=== PATIENT | male | born 1960 | race Caucasian/White ===

== ENCOUNTER 2017-08-22 01:24 | Emergency (ER) | payer BC ==
[~2017-08-22] VITALS: Ht 177.8 cm; Wt 86.0 kg
[~2017-08-22 01:24] MED LIST: RANI150T85 PO; multi vit
[2017-08-22 01:41] VITALS: Ht 177.8 cm; Wt 86.0 kg
[2017-08-22] MEDS ORDERED: ALUMINUM/MAGNESIUM SUSP 30 ML UDC PO STA (02:18)
[2017-08-22] MEDS ORDERED: LIDOCAINE HCL 2% VISC SOLN 20 ML UDC PO STA (02:18)
[2017-08-22] MEDS ORDERED: ONDANSETRON INJ 2 MG/ML 2 ML VIAL IV STA (02:18)
[2017-08-22 02:50] VITALS: O2SAT 95
[2017-08-22 03:01] LABS: BASO % 0.4 %; BASO ABS # 0.05 K/uL (0-0.2); EOS % 6.2 %; EOS ABS # 0.74 K/uL (0-0.5); HEMATOCRIT 40.8 % (42-52); IG# 0.03 K/uL (0.00-0.02); LYMPH % 27.4 %; LYMPH ABS # 3.28 K/uL (1.2-3.4); MEAN CELL VOLUME 90.9 fL (80-100); MEAN CORPUSCULAR HEMOGLOBIN 31.2 pg (25-34); MEAN CORPUSCULAR HGB CONC 34.3 g/dl (32-36); MEAN PLATELET VOLUME 9.1 fL (7.4-10.4); MONO % 14.4 %; MONO ABS # 1.72 K/uL (0.11-0.59); NEUT % 51.3 %; NEUT ABS # 6.13 K/uL (1.4-6.5); PLATELET COUNT 286 K/uL (130-400); RED CELL DISTRIBUTION WIDTH CV 13.3 % (11.5-14.5); RED CELL DISTRIBUTION WIDTH SD 43.7 fL (36.4-46.3); WHITE BLOOD COUNT 11.95 K/uL (4.8-10.8)
[2017-08-22 03:21] LABS: ALBUMIN 3.3 gm/dl (3.4-5.0); ALT/SGPT 28 U/L (12-78); AST/SGOT 22 U/L (15-37); BLOOD UREA NITROGEN 21 mg/dl (7-18); CALCIUM 8.3 mg/dl (8.5-10.1); CARBON DIOXIDE 24 mmol/L (21-32); CREATININE 0.86 mg/dl (0.60-1.40); GLUCOSE 96 mg/dl (70-99); LIPASE 396 U/L (73-393); POTASSIUM 3.7 mmol/L (3.5-5.1); SODIUM 137 mmol/L (136-145)
[2017-08-22 03:26] LABS: ALKALINE PHOSPHATASE 95 U/L (45-117); TOTAL PROTEIN 7.5 gm/dl (6.4-8.2)
[2017-08-22] MEDS ORDERED: OPTIRAY 320 IV PRN (04:15)
[2017-08-22] MEDS ORDERED: ONDANSETRON HOME PACK 4MG OD TAB PO ONE (05:15)
[2017-08-22] MEDS ORDERED: PERCOCET HOME PACK PO ONE (05:15)
--- NOTE | 2017-08-22 05:18 | EMERGENCY ROOM VISIT NOTE ---
History First contact with patient: 01:52 Chief Complaint: ABDOMINAL PAIN Stated Complaint: UPR ABD PAIN W RADIATION INTO BOTH FLANKS Nursing Triage Summary: see triage note History of Present Illness The patient is a 57 year old male who presents to the Emergency Room with complaints of epigastric discomfort for the past day that radiates around to his back described as discomfort, 5 out of 10. Nothing makes it better or worse. Patient denies chest pain, dyspnea, fever, chills, nausea, vomiting, diarrhea, testicular pain, penile pain, urinary symptoms. Patient states several years ago he had a history of pancreatitis and symptoms feel somewhat similar. No recent alcohol intake. Review of Systems An 10 system review of systems was completed with positives and pertinent negatives listed in the HPI. Past Medical/Surgical History Pancreatitis Social History Smoking Status: Never Smoker Smokeless Tobacco Use: No Drug Use: none Marital Status: Housing Status: lives with family Occupation Status: employed Current/Historical Medications Scheduled Ranitidine (Zantac), 150 MG PO BID Miscellaneous Medications [multi vit] Physical Exam Vital Signs Date Time Temp Pulse Resp B/P (MAP) Pulse Ox O2 Delivery O2 Flow Rate FiO2 08/22/17 03:48 36.5 69 20 125/78 Room Air 08/22/17 02:50 95 Room Air 08/22/17 02:50 95 Room Air 08/22/17 02:45 71 08/22/17 02:45 71 08/22/17 01:41 36.5 80 20 115/73 95 Room Air Physical Exam VITALS: Vitals are noted on the nurse's note and reviewed by myself. Vital signs stable. GENERAL: Pleasant male, in no acute distress, nondiaphoretic, well-developed well-nourished. SKIN: The skin was without rashes, erythema, edema, or bruising. There is no tenting of the skin. Capillary reflex less than 2 seconds. HEAD: Normocephalic atraumatic. EARS: External auditory canals clear, tympanic membranes pearly elena without erythema or effusion bilaterally. EYES: Pupils equal round and reactive to light and accommodation. Conjunctivae without injection, sclerae without icterus. Extraocular movements intact. NOSE: Patent, turbinates without inflammation or discharge. MOUTH: Mucous membranes moist. Pharynx without erythema or exudate. Uvula midline. Airway patent. Tongue does not deviate. NECK: Supple without nuchal rigidity. No lymphadenopathy. No thyromegaly. Cervical spine is nontender. No JVD. HEART: Regular rate and rhythm without murmurs gallops or rubs. LUNGS: Clear to auscultation bilaterally without wheezes, rales or rhonchi. No retractions or accessory muscle use. ABDOMEN: Positive bowel sounds x 4. Normal tympanic percussion. Soft, minimally tender epigastric region, without masses or organomegaly. Umana sign negative. No guarding or rebound tenderness. No CVA tenderness MUSCULOSKELETAL: No muscle atrophy, erythema, or edema noted. NEURO: Patient was alert and oriented to person place and time. Normal sensation to light and sharp touch. No focal neurological deficits. Medical Decision & Procedures Laboratory Results 08/22/17 02:50 Red Blood Count 4.49, Mean Corpuscular Volume 90.9, Mean Corpuscular Hemoglobin 31.2, Mean Corpuscular Hemoglobin Concent 34.3, Mean Platelet Volume 9.1, Neutrophils (%) (Auto) 51.3, Lymphocytes (%) (Auto) 27.4, Monocytes (%) (Auto) 14.4, Eosinophils (%) (Auto) 6.2, Basophils (%) (Auto) 0.4, Neutrophils # (Auto ) 6.13, Lymphocytes # (Auto) 3.28, Monocytes # (Auto) 1.72, Eosinophils # (Auto ) 0.74, Basophils # (Auto) 0.05 08/22/17 02:50 Test 08/22/17 02:49 08/22/17 02:50 Bedside Troponin I < 0.030 ng/ml (0-0.045) White Blood Count 11.95 K/uL (4.8-10.8) Red Blood Count 4.49 M/uL (4.7-6.1) Hemoglobin 14.0 g/dL (14.0-18.0) Hematocrit 40.8 % (42-52) Mean Corpuscular Volume 90.9 fL (80-100) Mean Corpuscular Hemoglobin 31.2 pg (25-34) Mean Corpuscular Hemoglobin Concent 34.3 g/dl (32-36) Platelet Count 286 K/uL (130-400) Mean Platelet Volume 9.1 fL (7.4-10.4) Neutrophils (%) (Auto) 51.3 % Lymphocytes (%) (Auto) 27.4 % Monocytes (%) (Auto) 14.4 % Eosinophils (%) (Auto) 6.2 % Basophils (%) (Auto) 0.4 % Neutrophils # (Auto) 6.13 K/uL (1.4-6.5) Lymphocytes # (Auto) 3.28 K/uL (1.2-3.4) Monocytes # (Auto) 1.72 K/uL (0.11-0.59) Eosinophils # (Auto) 0.74 K/uL (0-0.5) Basophils # (Auto) 0.05 K/uL (0-0.2) RDW Standard Deviation 43.7 fL (36.4-46.3) RDW Coefficient of Variation 13.3 % (11.5-14.5) Immature Granulocyte % (Auto) 0.3 % Immature Granulocyte # (Auto) 0.03 K/uL (0.00-0.02) Anion Gap 8.0 mmol/L (3-11) Est Creatinine Clear Calc Drug Dose 100.2 ml/min Estimated GFR () 113.1 Estimated GFR (Non- 97.6 BUN/Creatinine Ratio 24.2 (10-20) Calcium Level 8.3 mg/dl (8.5-10.1) Total Bilirubin 0.3 mg/dl (0.2-1) Direct Bilirubin < 0.1 mg/dl (0-0.2) Aspartate Amino Transf (AST/SGOT) 22 U/L (15-37) Alanine Aminotransferase (ALT/SGPT) 28 U/L (12-78) Alkaline Phosphatase 95 U/L (45-117) Troponin I < 0.015 ng/ml (0-0.045) Total Protein 7.5 gm/dl (6.4-8.2) Albumin 3.3 gm/dl (3.4-5.0) Lipase 396 U/L (73-393) Medications Administered Medications (Trade) Dose Ordered Sig/Luz Elena Route Start Time Stop Time Status Last Admin Dose Admin Lidocaine HCl (Viscous Lidocaine 2% Soln) 10 ml NOW STAT PO 08/22/17 02:18 08/22/17 02:19 DC 08/22/17 02:52 10 ML Al Hydroxide/Mg Hydroxide (Maalox Susp) 30 ml NOW STAT PO 08/22/17 02:18 08/22/17 02:19 DC 08/22/17 02:52 30 ML Ondansetron HCl (Zofran Inj) 4 mg NOW STAT IV 08/22/17 02:18 08/22/17 02:19 DC 08/22/17 02:52 4 MG ED Course Prior records/ancillary studies reviewed. Triage Nursing notes reviewed. Additional history obtained from family The patient's history was concerning for abdominal pain. Differential diagnosis: Etiologies such as appendicitis, diverticulitis, PUD, biliary pathology, UTI, pancreatitis, obstruction, mesenteric ischemia, aortic pathology, infections, inflammatory bowel disease, renal colic, as well as others were entertained. Physical examination findings: As above. ER treatment provided: GI cocktail On reassessment the patient felt better. Diagnostics interpreted by me: ECG: Normal sinus, normal intervals, no acute ST-T wave changes. Impression normal sinus rhythm interpreted by myself The labs revealed mild leukocytosis. Slightly elevated lipase. Negative troponin Imaging studies: Chest x-ray with no acute consolidation, pneumothorax free of my interpretation Ultrasound negative for cholecystitis CT was concerning for pancreatitis per radiology Exam and history seem consistent with pancreatitis. Patient is requesting to leave. He was in mild discomfort. He required no pain meds. He was not vomiting patient was offered admission and declined.. He states he has gone home before with pancreatitis. He was advised to clear liquid diet until the pain has resolved to follow-up with his GI doctor in a day or 2 here in the ER sooner for abdominal pain, fevers, vomiting, worsening signs or symptoms or as needed. Patient was neurovascularly and neurologically intact. He did not have acute abdomen on exam. He is well-appearing. He was afebrile nontoxic. By the evaluation outlined above emergent etiologies such as appendicitis, diverticulitis, PUD, biliary pathology, UTI, pancreatitis, obstruction, mesenteric ischemia, aortic pathology, inflammatory bowel disease, renal colic , as well as others were deemed relatively unlikely. The pt informed about the findings as listed above. All questions were answered and pleased with the treatment. Return instructions were outlined and the patient was discharged in stable condition. Outpatient prescription management: Percocet, Zofran Referral: The patient was referred back to their primary care physician/ GI for follow- up in 24 hours for a recheck of the current condition. Case reviewed with my attending The chart was completed utilizing Dragon Speech voice recognition software. Grammatical errors, random word insertions, pronoun errors, and incomplete sentences are an occassional consequence of this system due to software limitations, ambient noise, and hardware issues. Any formal questions or concerns about the content, text, or information contained within the body of this dictation should be directly addressed to the physician respiratory therapy assistant for clarification. Medical Decision As above [place] Drug Monitoring Program Search Results: patient reviewed within database, no issues identified Medication Reconcilliation Current Medication List: was personally reviewed by me Blood Pressure Screening Patient's blood pressure: Normal blood pressure Impression Primary Impression: Pancreatitis Departure Information Dispostion Home / Self-Care Condition GOOD Referrals Aram Muller M.D. (PCP) Patient Instructions My [facility] Additional Instructions DO NOT drive, drink alcohol, operate machinery, or perform dangerous activities today. You were given medications in the ER that can affect your ability to safely function or operate a vehicle. Oxycodone/Acetaminophen (Percocet) 5/325mg: Take 1-2 pills every four hours for breakthrough pain. Avoid alcohol, operating machinery or dangerous equipment, working on ladders or roofs, DRIVING, or situations where being under the influence may be dangerous. It is recommended to use an [id number] stool softener such as Colace, 100mg twice daily while taking this medication to avoid constipation. Ibuprofen(Motrin, Advil) may be used for fever or pain. Use 600mg every six hours as needed. Take with food. Avoid using more than 2400mg in a 24 hour period. Do not use 2400mg per day for more than three consecutive days without physician direction. Prolonged inappropriate use can lead to stomach upset or ulcers. Zofran 4mg: Take one every six hours as needed for nausea. Avoid alcohol, operating machinery or dangerous equipment, working on ladders or roofs, DRIVING , or situations where being under the influence may be dangerous. Rest and drink plenty of fluids as tolerated. Slow sips of water or sports drinks are recommended instead of large amounts all at once. Continue current medications. Clear liquid diet until her pain has resolved. Return to the ER immediately for worsening or persistent abdominal pain, vomiting, fevers, chest pains, difficulty breathing, black or bloody stools, worsening of your condition, or as needed. Follow up with your primary physician/ GI docor in 24 hours for a recheck of your current condition. Problem Qualifiers Primary Impression: Pancreatitis Chronicity: acute Pancreatitis type: unspecified pancreatitis type Acute pancreatitis complication: unspecified Qualified Codes: K85.90 - Acute pancreatitis without necrosis or infection, unspecified
[2017-08-22] MEDS ORDERED: OXYC-57 PO (05:21)
[2017-08-22] MEDS ORDERED: ONDA4TAB10 SL (05:21)
[2017-08-22 05:33] VITALS: BP 128/72; PULSE 65; TEMP 36.6; O2SAT 98
--- NOTE | 2017-08-22 07:23 | DIAGNOSTIC IMAGING REPORT ---
ABDOMINAL ULTRASOUND, RIGHT UPPER QUADRANT HISTORY: epigastric pain. COMPARISON: Abdominal ultrasound 04/12/2011. FINDINGS: Pancreas: Obscured by overlying bowel gas. Liver: Unremarkable. Gallbladder: No gallstones. No gallbladder wall thickening. Sludge versus artifact within the gallbladder. CBD: 4 mm. Right kidney: No hydronephrosis. IMPRESSION: 1. Sludge versus artifact within the gallbladder. 2. No gallbladder wall thickening. No gallstones. 3. The pancreas was obscured by overlying bowel gas. Electronically signed by: Hudson Mendez M.D. 08/22/2017 7:21 AM Dictated Date/Time: 08/22/2017 7:20 AM
--- NOTE | 2017-08-22 07:25 | DIAGNOSTIC IMAGING REPORT ---
ABDOMEN AND PELVIS CT WITH IV CONTRAST CT DOSE: 558.80 mGy.cm HISTORY: Acute generalized abdominal pain with concern for acute pancreatitis abd pain, ? pancreatitis TECHNIQUE: Multiaxial CT images of the abdomen and pelvis were performed following the use of intravenous contrast. A dose lowering technique was utilized adhering to the principles of ALARA. COMPARISON STUDY: CT abdomen and pelvis 04/12/2011 FINDINGS: Minimal dependent subsegmental bibasilar atelectasis. No pneumatosis or pneumoperitoneum. Imaged inferior cardiac chambers are unremarkable. The liver, spleen, gallbladder, and adrenal glands are within normal limits. There is mild interstitial and peripancreatic edema involving the pancreatic head and uncinate process. No pancreatic ductal dilation or drainable fluid collections. There is mild generalized pancreatic atrophy. No intrahepatic biliary ductal dilation. Nonobstructing 5 mm calculus of the interpolar left kidney with additional 2 mm nonobstructing calculus of the inferior pole left kidney. 4 mm low attenuating lesion of the superior pole right kidney suggests renal cyst. No ureteral calculi or hydronephrosis. Urinary bladder is partially decompressed. Calcifications are seen within the central prostate. No aortic aneurysm or bulky adenopathy. No bowel obstruction or focal bowel wall thickening. Postoperative changes from prior ventral abdominal wall herniorrhaphy. Soft tissues are within normal limits. The bones appear intact. 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 IMPRESSION: 1. Mild interstitial and peripancreatic edema about the pancreatic head and uncinate process suggests mild acute pancreatitis. No evidence of pancreatic necrosis or drainable fluid collection. Correlate with lipase level. 2. No biliary ductal dilation. 3. No bowel obstruction or focal bowel wall thickening. 4. Nonobstructing left nephrolithiasis. Electronically signed by: Demetrius Ford M.D. 08/22/2017 7:23 AM Dictated Date/Time: 08/22/2017 7:17 AM
--- NOTE | 2017-08-22 07:36 | DIAGNOSTIC IMAGING REPORT ---
CHEST ONE VIEW PORTABLE HISTORY: Atypical CHEST PAIN COMPARISON: Chest 04/12/2011. FINDINGS: The lungs are clear. Cardiac silhouette is normal in size. No pleural effusions. No pneumothorax. IMPRESSION: No acute process. Electronically signed by: Hudson Mendez M.D. 08/22/2017 7:35 AM Dictated Date/Time: 08/22/2017 7:33 AM
== END 2017-08-22 05:35 | disposition home or self-care (01) ==
LOC: C.EDB 01:26
DX: K85.90 Acute pancreatitis without necrosis or infection, unspecified (principal)

== ENCOUNTER 2017-09-29 13:33 | Inpatient (IN) | payer BC ==
[~2017-09-29] VITALS: Ht 176.5 cm; Wt 90.8 kg
[~2017-09-29 13:33] MED LIST changes: +ONDA4TAB10 SL; +OXYC-57 PO
[2017-09-29] MEDS ORDERED: ONDANSETRON INJ 2 MG/ML 2 ML VIAL IV STA (14:13)
[2017-09-29] MEDS ORDERED: SODIUM CHLORIDE 0.9% 1000ML 1,000 ML IV STA (14:13)
[2017-09-29] MEDS ORDERED: KETOROLAC TROMETHAMINE 30 MG/ML VIAL IV STA (14:16)
[2017-09-29 14:22] LABS: BASO % 0.1 %; BASO ABS # 0.02 K/uL (0-0.2); EOS % 0.1 %; EOS ABS # 0.02 K/uL (0-0.5); HEMATOCRIT 42.5 % (42-52); HEMOGLOBIN 14.5 g/dL (14.0-18.0); IG# 0.06 K/uL (0.00-0.02); LYMPH % 7.1 %; LYMPH ABS # 1.32 K/uL (1.2-3.4); MEAN CELL VOLUME 91.6 fL (80-100); MEAN CORPUSCULAR HEMOGLOBIN 31.3 pg (25-34); MEAN CORPUSCULAR HGB CONC 34.1 g/dl (32-36); MEAN PLATELET VOLUME 9.3 fL (7.4-10.4); MONO % 14.6 %; MONO ABS # 2.72 K/uL (0.11-0.59); NEUT % 77.8 %; NEUT ABS # 14.45 K/uL (1.4-6.5); PLATELET COUNT 290 K/uL (130-400); RED CELL DISTRIBUTION WIDTH CV 13.3 % (11.5-14.5); RED CELL DISTRIBUTION WIDTH SD 44.3 fL (36.4-46.3); WHITE BLOOD COUNT 18.59 K/uL (4.8-10.8)
[2017-09-29 14:31] LABS: ALBUMIN 3.9 gm/dl (3.4-5.0); CALCIUM 9.9 mg/dl (8.5-10.1); CREATININE 0.89 mg/dl (0.60-1.40); POTASSIUM 3.8 mmol/L (3.5-5.1)
[2017-09-29 14:33] LABS: TOTAL PROTEIN 8.5 gm/dl (6.4-8.2)
--- NOTE | 2017-09-29 15:36 | DIAGNOSTIC IMAGING REPORT ---
ULTRASOUND RIGHT UPPER QUADRANT ABDOMEN CLINICAL HISTORY: Upper abdominal pain. COMPARISON STUDY: Abdominal CT dated 08/22/2017. TECHNIQUE: Real-time, grayscale, and color flow sonography of the right upper quadrant of the abdomen was performed. Images are reviewed in the transverse and longitudinal planes. FINDINGS: Liver: The liver is normal in size and echotexture. There is no intrahepatic biliary ductal dilatation. The main portal vein is patent. Gallbladder: The gallbladder is normal in appearance. No gallstones are identified. There is no gallbladder wall thickening or pericholecystic fluid. A sonographic Umana's sign is reportedly absent. The common bile duct measures up to 0.2 cm in diameter. Pancreas: Not well visualized due to overlying bowel gas. Right kidney: Survey images of the right kidney demonstrate normal size and echotexture. There is no hydronephrosis. Ascites: None. IMPRESSION: 1. No acute sonographic abnormality is identified in the right upper quadrant. No gallstones are seen. 2. The pancreas was not visualized due to overlying bowel gas. Electronically signed by: Marvel Rizzo M.D. 09/29/2017 3:34 PM Dictated Date/Time: 09/29/2017 3:33 PM
[2017-09-29] MEDS ORDERED: MoRPHine SULFATE 10 MG/ML CARP/VIAL IV STA (16:09)
[2017-09-29] MEDS ORDERED: OPTIRAY 320 IV PRN (16:45)
[2017-09-29] MEDS ORDERED: FOLI1TAB8 PO (16:51)
[2017-09-29] MEDS ORDERED: MAGN400T6 PO (16:51)
[2017-09-29] MEDS ORDERED: LEVO100T PO (16:51)
[2017-09-29] MEDS ORDERED: MULT-845 PO (16:51)
[2017-09-29] MEDS ORDERED: TADA5TAB11 PO (16:51)
[2017-09-29] MEDS ORDERED: ERGO500037 PO (16:51)
[2017-09-29] MEDS ORDERED: CALC600T37 PO (16:51)
--- NOTE | 2017-09-29 17:04 | DIAGNOSTIC IMAGING REPORT ---
CT SCAN OF THE ABDOMEN AND PELVIS WITH IV CONTRAST CLINICAL HISTORY: Generalized abdominal pain. Elevated lipase. COMPARISON STUDY: Abdominal CT dated 08/22/2017. TECHNIQUE: Following the IV administration of 95 cc of Optiray 320, CT scan of the abdomen and pelvis is performed from the lung bases to the proximal femora. Images are reviewed in the axial, sagittal, and coronal planes. IV contrast was administered without complication. A dose lowering technique was utilized adhering to the principles of ALARA. CT DOSE: 546.73 mGy.cm FINDINGS: Lung bases: The heart is normal in size and without pericardial effusion. There are coronary artery calcifications. A tiny hiatal hernia is identified. The lung bases are clear. Liver: The contrast-enhanced liver is normal in size, contour, and attenuation. There is no intrahepatic biliary ductal dilatation. The hepatic veins and portal veins are patent. Gallbladder: Unremarkable. Spleen: Normal in size and attenuation. Pancreas: There is mild to moderate glandular atrophy of the pancreas. There is peripancreatic inflammatory stranding and trace fluid, greatest in the pancreatic head. The appearance is consistent with acute pancreatitis. The pancreatic parenchyma enhances. No organized peripancreatic fluid collection is identified. The splenic vein is patent. Adrenal glands: Unremarkable. Kidneys: The contrast enhanced kidneys are normal in size and without hydronephrosis. The kidneys enhance symmetrically. There is a 4 mm nonobstructing left renal calculus. Abdominal vasculature: The abdominal aorta is normal in course and caliber noting scattered foci of atherosclerotic calcification. Bowel: The small bowel and colon are normal in course and caliber. The appendix is normal as visualized. Peritoneum: There is no intraperitoneal free air or abdominal ascites. Lymphadenopathy: None. Pelvic viscera: The bladder, prostate, and seminal vesicles are normal as visualized. There is evidence of previous bilateral inguinal herniorrhaphy. Skeletal structures: No lytic or blastic lesions are seen. IMPRESSION: 1. Findings are consistent with acute pancreatitis. 2. There is no evidence of pancreatic necrosis or pseudocyst formation. 3. Nonobstructing left renal calculus. 4. Additional findings as above. Electronically signed by: Marvel Rizzo M.D. 09/29/2017 5:03 PM Dictated Date/Time: 09/29/2017 4:57 PM
[2017-09-29] MEDS ORDERED: ONDANSETRON INJ 2 MG/ML 2 ML VIAL IV PRN ×2 (17:30→18:00)
[2017-09-29] MEDS ORDERED: CALC-388 PO (17:38)
[2017-09-29] MEDS ORDERED: CYAN6000 SL (17:38)
--- NOTE | 2017-09-29 17:43 | EMERGENCY ROOM VISIT NOTE ---
History First contact with patient: 13:44 Chief Complaint: ABDOMINAL PAIN Stated Complaint: SIGNS,SYMPTOMS ACUTE PANCREATITIS Nursing Triage Summary: c/o abdominal cramping radiating into back since friday night. vomited twice this am. denies diarrhea, consitpation. abd soft, tender, distended. History of Present Illness The patient is a 57 year old male who presents to the Emergency Room with complaints of abdominal pain. The patient reports that he has abdominal pain consistent with pancreatitis. He has had pain for the past 2 days, worsening significantly today. He states it is a burning pain diffusely across his abdomen and rates the discomfort a 10/10. The pain radiates into his back. The patient was seen here 1 month ago for acute pancreatitis and states this pain feels the same. He has been seeing GI as an outpatient and states he is scheduled for an endoscopy in 1 week. He does not drink alcohol. He had one prior episode of pancreatitis 6 years ago. He denies any other medical problems. He reports associated nausea and vomiting. He denies fevers, urinary symptoms, chest pain, shortness of breath or changes in bowel movements. Review of Systems A complete 10 point review of systems was reviewed with the patient with pertinent positives and negatives as per history of present illness. All else were negative. Past Medical/Surgical History Medical Problems: (1) Celiac disease (2) Hypothyroidism (3) Impotence of organic origin (4) Osteoporosis Social History Smoking Status: Never Smoker Drug Use: none Marital Status: Housing Status: lives with family Occupation Status: employed Current/Historical Medications Scheduled Calcium Carbonate-Vitamin D (Calcium + D3 600-200 mg-Unit), 2 TABS PO DAILY Cyanocobalamin (Vitamin B-12), 1 TAB SL DAILY Ergocalciferol (Vitamin D 95118 Unit), 50,000 UNIT PO WK Folic Acid (Folvite), 1 MG PO DAILY Levothyroxine Sodium (Synthroid), 100 MCG PO DAILY Multiple Vitamins W/ Minerals (Centrum Silver Adult 50+), 1 TAB PO DAILY Tadalafil (Cialis), 5 MG PO DAILY Physical Exam Vital Signs Date Time Temp Pulse Resp B/P (MAP) Pulse Ox O2 Delivery O2 Flow Rate FiO2 09/29/17 16:36 84 15 124/87 09/29/17 16:06 91 17 124/87 09/29/17 14:33 93 16 09/29/17 14:03 98 21 09/29/17 13:58 101 09/29/17 13:55 142/100 09/29/17 13:38 37.0 100 18 124/91 98 Room Air Physical Exam VITALS: Vitals are noted on the nurse's note and reviewed by myself. Vital signs stable. GENERAL: This is a 57-year-old male, in no acute distress, nondiaphoretic, well- developed well-nourished. SKIN: The skin was without rashes. EARS: External auditory canals clear, tympanic membranes pearly elena without erythema or effusion bilaterally. EYES: Pupils equal round and reactive to light and accommodation. MOUTH: Mucous membranes moist. Tonsils are not enlarged. Pharynx without erythema or exudate. HEART: Regular rate and rhythm without murmurs gallops or rubs. LUNGS: Clear to auscultation bilaterally without wheezes, rales or rhonchi. ABDOMEN: Positive bowel sounds x 4. Soft, nondistended with diffuse mild abdominal tenderness, most notably across the upper abdomen. NEURO: Patient was alert and oriented to person place and time. Medical Decision & Procedures ER Provider Diagnostic Interpretation: ULTRASOUND RIGHT UPPER QUADRANT ABDOMEN FINDINGS: Liver: The liver is normal in size and echotexture. There is no intrahepatic biliary ductal dilatation. The main portal vein is patent. Gallbladder: The gallbladder is normal in appearance. No gallstones are identified. There is no gallbladder wall thickening or pericholecystic fluid. A sonographic Umana's sign is reportedly absent. The common bile duct measures up to 0.2 cm in diameter. Pancreas: Not well visualized due to overlying bowel gas. Right kidney: Survey images of the right kidney demonstrate normal size and echotexture. There is no hydronephrosis. Ascites: None. IMPRESSION: 1. No acute sonographic abnormality is identified in the right upper quadrant. No gallstones are seen. 2. The pancreas was not visualized due to overlying bowel gas. CT SCAN OF THE ABDOMEN AND PELVIS WITH IV CONTRAST FINDINGS: Lung bases: The heart is normal in size and without pericardial effusion. There are coronary artery calcifications. A tiny hiatal hernia is identified. The lung bases are clear. Liver: The contrast-enhanced liver is normal in size, contour, and attenuation. There is no intrahepatic biliary ductal dilatation. The hepatic veins and portal veins are patent. Gallbladder: Unremarkable. Spleen: Normal in size and attenuation. Pancreas: There is mild to moderate glandular atrophy of the pancreas. There is peripancreatic inflammatory stranding and trace fluid, greatest in the pancreatic head. The appearance is consistent with acute pancreatitis. The pancreatic parenchyma enhances. No organized peripancreatic fluid collection is identified. The splenic vein is patent. Adrenal glands: Unremarkable. Kidneys: The contrast enhanced kidneys are normal in size and without hydronephrosis. The kidneys enhance symmetrically. There is a 4 mm nonobstructing left renal calculus. Abdominal vasculature: The abdominal aorta is normal in course and caliber noting scattered foci of atherosclerotic calcification. Bowel: The small bowel and colon are normal in course and caliber. The appendix is normal as visualized. Peritoneum: There is no intraperitoneal free air or abdominal ascites. Lymphadenopathy: None. Pelvic viscera: The bladder, prostate, and seminal vesicles are normal as visualized. There is evidence of previous bilateral inguinal herniorrhaphy. Skeletal structures: No lytic or blastic lesions are seen. IMPRESSION: 1. Findings are consistent with acute pancreatitis. 2. There is no evidence of pancreatic necrosis or pseudocyst formation. 3. Nonobstructing left renal calculus. 4. Additional findings as above. Laboratory Results 09/29/17 13:51 Red Blood Count 4.64, Mean Corpuscular Volume 91.6, Mean Corpuscular Hemoglobin 31.3, Mean Corpuscular Hemoglobin Concent 34.1, Mean Platelet Volume 9.3, Neutrophils (%) (Auto) 77.8, Lymphocytes (%) (Auto) 7.1, Monocytes (%) (Auto) 14.6, Eosinophils (%) (Auto) 0.1, Basophils (%) (Auto) 0.1, Neutrophils # (Auto ) 14.45, Lymphocytes # (Auto) 1.32, Monocytes # (Auto) 2.72, Eosinophils # (Auto ) 0.02, Basophils # (Auto) 0.02 09/29/17 13:51 Test 09/29/17 00:00 09/29/17 13:51 Urine Color YELLOW Urine Appearance TURBID (CLEAR) Urine pH 8.5 (4.5-7.5) Urine Specific [place] 1.022 (1.000-1.030) Urine Protein NEG (NEG) Urine Glucose (UA) NEG (NEG) Urine Ketones NEG (NEG) Urine Occult Blood NEG (NEG) Urine Nitrite NEG (NEG) Urine Bilirubin NEG (NEG) Urine Urobilinogen NEG (NEG) Urine Leukocyte Esterase NEG (NEG) Urine WBC (Auto) 1-5 /hpf (0-5) Urine RBC (Auto) 5-10 /hpf (0-4) Urine Hyaline Casts (Auto) 1-5 /lpf (0-5) Urine Epithelial Cells (Auto) 10-20 /lpf (0-5) Urine Bacteria (Auto) NEG (NEG) White Blood Count 18.59 K/uL (4.8-10.8) Red Blood Count 4.64 M/uL (4.7-6.1) Hemoglobin 14.5 g/dL (14.0-18.0) Hematocrit 42.5 % (42-52) Mean Corpuscular Volume 91.6 fL (80-100) Mean Corpuscular Hemoglobin 31.3 pg (25-34) Mean Corpuscular Hemoglobin Concent 34.1 g/dl (32-36) Platelet Count 290 K/uL (130-400) Mean Platelet Volume 9.3 fL (7.4-10.4) Neutrophils (%) (Auto) 77.8 % Lymphocytes (%) (Auto) 7.1 % Monocytes (%) (Auto) 14.6 % Eosinophils (%) (Auto) 0.1 % Basophils (%) (Auto) 0.1 % Neutrophils # (Auto) 14.45 K/uL (1.4-6.5) Lymphocytes # (Auto) 1.32 K/uL (1.2-3.4) Monocytes # (Auto) 2.72 K/uL (0.11-0.59) Eosinophils # (Auto) 0.02 K/uL (0-0.5) Basophils # (Auto) 0.02 K/uL (0-0.2) RDW Standard Deviation 44.3 fL (36.4-46.3) RDW Coefficient of Variation 13.3 % (11.5-14.5) Immature Granulocyte % (Auto) 0.3 % Immature Granulocyte # (Auto) 0.06 K/uL (0.00-0.02) Anion Gap 7.0 mmol/L (3-11) Est Creatinine Clear Calc Drug Dose 104.5 ml/min Estimated GFR () 111.6 Estimated GFR (Non- 96.3 BUN/Creatinine Ratio 15.4 (10-20) Calcium Level 9.9 mg/dl (8.5-10.1) Total Bilirubin 0.8 mg/dl (0.2-1) Aspartate Amino Transf (AST/SGOT) 22 U/L (15-37) Alanine Aminotransferase (ALT/SGPT) 29 U/L (12-78) Alkaline Phosphatase 84 U/L (45-117) Total Protein 8.5 gm/dl (6.4-8.2) Albumin 3.9 gm/dl (3.4-5.0) Globulin 4.6 gm/dl (2.5-4.0) Albumin/Globulin Ratio 0.8 (0.9-2) Lipase 784 U/L (73-393) Medications Administered Medications (Trade) Dose Ordered Sig/Luz Elena Route Start Time Stop Time Status Last Admin Dose Admin Sodium Chloride 1,000 ml @ 999 mls/hr Q1H1M STAT IV 09/29/17 14:13 09/29/17 15:13 DC 09/29/17 14:23 999 MLS/HR Ondansetron HCl (Zofran Inj) 4 mg NOW STAT IV 09/29/17 14:13 09/29/17 14:15 DC 09/29/17 14:23 4 MG Ketorolac Tromethamine (Toradol Inj) 30 mg NOW STAT IV 09/29/17 14:16 09/29/17 14:17 DC 09/29/17 14:23 30 MG Morphine Sulfate (MoRPHine SULFATE INJ) 6 mg NOW STAT IV 09/29/17 16:09 09/29/17 16:11 DC 09/29/17 16:16 6 MG ED Course The patient was evaluated as above. Labs were drawn and IV access was obtained. Patient was medicated with 1 L normal saline solution, 4 mg Zofran and and 30 mg Toradol IV. Right upper quadrant ultrasound was performed and read by radiology as above. Case was discussed with ANNA Metcalf with gastroenterology. She did recommend admission given the increase in leukocytosis and increasing lipase. She also recommended CT scan to rule out pancreatic abscess. Patient was reevaluated at this time and is agreeable to admission. He did request something additional for pain and was given 6 mg morphine IV. Case was discussed with the [facility] hospitalist, Adelia Snyder. They agreed to evaluate the patient for admission. Medical Decision Differential diagnosis includes pancreatitis, cholecystitis, necrotic pancreatitis, pancreatic abscess, among others. The patient is a 57-year-old male who presents today complaining of abdominal pain consistent with previous pancreatitis. Labs revealed significant leukocytosis of 18.59. Lipase found to be elevated at 784. Patient was treated with Toradol and morphine with improvement of his pain. An ultrasound did not show any acute findings. I discussed the case with the on-call [facility] DIRECTOR of gastroenterology, who recommended admission and repeat CT scan to rule out a pancreatic abscess. CT was ordered and did show evidence of acute pancreatitis. Patient was admitted to the [facility] service for further evaluation and care. Medication Reconcilliation Current Medication List: was personally reviewed by me Blood Pressure Screening Patient's blood pressure: Normal blood pressure Impression Primary Impression: Acute pancreatitis Departure Information Referrals Aram Muller M.D. (PCP) Patient Instructions My [facility] Problem Qualifiers Primary Impression: Acute pancreatitis Pancreatitis type: unspecified pancreatitis type Acute pancreatitis complication: no infection or necrosis Qualified Codes: K85.90 - Acute pancreatitis without necrosis or infection, unspecified
--- NOTE | 2017-09-29 17:56 | History and Physical ---
History & Physical Date & Time of Service: Sep 29, 2017 at 17:39 Chief Complaint: Signs,Symptoms Acute Pancreatitis Primary Care Physician: Aram Muller M.D. History of Present Illness Source: patient, clinic records, hospital records Patient is a 57-year-old male with a PMH of celiac disease, hypothyroidism and h /o pancreatitis who presents with diffuse abdominal pain 3 days. Patient experienced first bout of pancreatitis 6 years ago and again last month. Followed up in GI clinic a few weeks ago and has an EGD and EUS scheduled for next week. Etiology of pancreatitis is unclear however biliary sludge was seen in the gallbladder on previous imaging. Was offered referral to surgery to consider cholecystectomy but declined. This Friday, patient went out for dinner and had smoked chicken thighs. Started to experience central abdominal pain afterwards. Pain persisted yesterday but patient was able to tolerate a bland dinner of rice. Took a Percocet that was leftover from pancreatitis visit last month in ED, which controlled pain enough for patient to sleep overnight. Woke up and went to work today but experience constant nausea with 2 episodes of bilious vomit. brought him to ED this afternoon. Describes abdominal pain as 10/10 diffuse, burning pain with some radiation to his lower back. Pain improved to a 4/10 after receiving pain medication in the ED. Denies alcohol use. No fever, chills, lightheadedness, headache, visual changes , chest pain, SOB, dysuria, diarrhea or constipation. In ED, patient found to have a leukocytosis of 18.59. Lipase is elevated to [address] abdomen pelvis shows evidence of acute pancreatitis. Past Medical/Surgical History Medical Problems: (1) Celiac disease Status: Chronic (2) Hypothyroidism Status: Chronic (3) Impotence of organic origin Status: Chronic (4) Osteoporosis Status: Chronic Social History Smoking Status: Never Smoker Alcohol Use: none Drug Use: none Marital Status: Housing status: lives with significant other Occupational Status: employed Allergies Coded Allergies: No Known Allergies (Unverified , 09/29/17) Home Medications Scheduled Calcium Carbonate-Vitamin D (Calcium + D3 600-200 mg-Unit), 2 TABS PO DAILY Cyanocobalamin (Vitamin B-12), 1 TAB SL DAILY Ergocalciferol (Vitamin D 43566 Unit), 50,000 UNIT PO WK Folic Acid (Folvite), 1 MG PO DAILY Levothyroxine Sodium (Synthroid), 100 MCG PO DAILY Multiple Vitamins W/ Minerals (Centrum Silver Adult 50+), 1 TAB PO DAILY Tadalafil (Cialis), 5 MG PO DAILY Review of Systems Constitutional: No fever, No chills, No sweats, No weakness Eyes: No worsening of vision, No eye pain ENT: No nasal symptoms, No sore throat Respiratory: No cough, No wheezing, No shortness of breath Cardiovascular: No chest pain, No edema, No palpitations Abdomen: + pain, + nausea, + vomiting, No diarrhea, No constipation Genitourinary - Male: No hematuria, No dysuria, No urinary frequency Neurologic: No weakness, No numbness/tingling Integumentary: No rash, No new/changing skin lesions Physical Exam Vital Signs Date Time Temp Pulse Resp B/P (MAP) Pulse Ox O2 Delivery O2 Flow Rate FiO2 09/29/17 16:06 91 17 124/87 09/29/17 14:33 93 16 09/29/17 14:03 98 21 09/29/17 13:58 101 09/29/17 13:55 142/100 09/29/17 13:38 37.0 100 18 124/91 98 Room Air General Appearance: WD/WN, + mild distress Head: normocephalic, atraumatic Eyes: normal inspection, PERRL, sclerae normal ENT: normal ENT inspection, TMs normal, pharynx normal (Dry mucous membranes) Neck: supple, thyroid normal, trachea midline Respiratory/Chest: chest non-tender, lungs clear, normal breath sounds, no respiratory distress, no accessory muscle use Cardiovascular: regular rate, rhythm, no murmur, normal peripheral pulses Abdomen/GI: normal bowel sounds, soft, no organomegaly, + tenderness (Diffuse TTP, no guarding) Back: normal inspection, no CVA tenderness Extremities/Musculoskelatal: normal inspection, no calf tenderness, no pedal edema Neurologic/Psych: no motor/sensory deficits, alert, normal mood/affect, oriented x 3 Skin: normal color, warm/dry, no rash Diagnostics Laboratory Results Results Past 24 Hours Test 09/29/17 00:00 09/29/17 13:51 Range/Units Urine Color YELLOW Urine Appearance TURBID CLEAR Urine pH 8.5 4.5-7.5 Urine Specific [place] 1.022 1.000-1.030 Urine Protein NEG NEG Urine Glucose (UA) NEG NEG Urine Ketones NEG NEG Urine Occult Blood NEG NEG Urine Nitrite NEG NEG Urine Bilirubin NEG NEG Urine Urobilinogen NEG NEG Urine Leukocyte Esterase NEG NEG Urine WBC (Auto) 1-5 0-5 /hpf Urine RBC (Auto) 5-10 0-4 /hpf Urine Hyaline Casts (Auto) 1-5 0-5 /lpf Urine Epithelial Cells (Auto) 10-20 0-5 /lpf Urine Bacteria (Auto) NEG NEG White Blood Count 18.59 4.8-10.8 K/uL Red Blood Count 4.64 4.7-6.1 M/uL Hemoglobin 14.5 14.0-18.0 g/dL Hematocrit 42.5 42-52 % Mean Corpuscular Volume 91.6 80-100 fL Mean Corpuscular Hemoglobin 31.3 25-34 pg Mean Corpuscular Hemoglobin Concent 34.1 32-36 g/dl Platelet Count 290 130-400 K/uL Mean Platelet Volume 9.3 7.4-10.4 fL Neutrophils (%) (Auto) 77.8 % Lymphocytes (%) (Auto) 7.1 % Monocytes (%) (Auto) 14.6 % Eosinophils (%) (Auto) 0.1 % Basophils (%) (Auto) 0.1 % Neutrophils # (Auto) 14.45 1.4-6.5 K/uL Lymphocytes # (Auto) 1.32 1.2-3.4 K/uL Monocytes # (Auto) 2.72 0.11-0.59 K/uL Eosinophils # (Auto) 0.02 0-0.5 K/uL Basophils # (Auto) 0.02 0-0.2 K/uL RDW Standard Deviation 44.3 36.4-46.3 fL RDW Coefficient of Variation 13.3 11.5-14.5 % Immature Granulocyte % (Auto) 0.3 % Immature Granulocyte # (Auto) 0.06 0.00-0.02 K/uL Sodium Level 133 136-145 mmol/L Potassium Level 3.8 3.5-5.1 mmol/L Chloride Level 100 98-107 mmol/L Carbon Dioxide Level 26 21-32 mmol/L Anion Gap 7.0 3-11 mmol/L Blood Urea Nitrogen 14 7-18 mg/dl Creatinine 0.89 0.60-1.40 mg/dl Est Creatinine Clear Calc Drug Dose 104.5 ml/min Estimated GFR () 111.6 Estimated GFR (Non- 96.3 BUN/Creatinine Ratio 15.4 10-20 Random Glucose 124 70-99 mg/dl Calcium Level 9.9 8.5-10.1 mg/dl Total Bilirubin 0.8 0.2-1 mg/dl Aspartate Amino Transf (AST/SGOT) 22 15-37 U/L Alanine Aminotransferase (ALT/SGPT) 29 12-78 U/L Alkaline Phosphatase 84 45-117 U/L Total Protein 8.5 6.4-8.2 gm/dl Albumin 3.9 3.4-5.0 gm/dl Globulin 4.6 2.5-4.0 gm/dl Albumin/Globulin Ratio 0.8 0.9-2 Lipase 784 73-393 U/L Diagnostic Radiology Pancreas ultrasound: IMPRESSION: 1. No acute sonographic abnormality is identified in the right upper quadrant. No gallstones are seen. 2. The pancreas was not visualized due to overlying bowel gas. CT abdomen pelvis: IMPRESSION: 1. Findings are consistent with acute pancreatitis. 2. There is no evidence of pancreatic necrosis or pseudocyst formation. 3. Nonobstructing left renal calculus. 4. Additional findings as above. Impression Assessment and Plan Patient is a 57-year-old male with a PMH of celiac disea, hypothyroidism and h/ o pancreatitis who presents with diffuse abdominal pain 3 days and was found to have acute pancreatitis. Acute recurrent pancreatitis: -Abd pain x 3 days, nausea, vomiting -Unknown etiology, possibly gallstones -Leukocytosis of 18.59, lipase is elevated to 784 -CT abd pelvis with findings are consistent with acute pancreatitis. There is no evidence of pancreatic necrosis or pseudocyst formation -Aggressive IV fluid resuscitation with LR -Pain control, antiemetics -GI consult for tomorrow -Keep NPO for now Hypothyroidism: -Levothyroxine Celiac disease: -Gluten free diet once able to tolerate food -Vit B12, folic acid supplementation Osteoporosis: -Calcium, Vit D DVT Ppx: SCDs for now Code status: FULL PCP: [facility] Dispo: Admitted to med/surg. Plan to return home once medically stable. Patient seen in collaboration with Dr. Grove. Please see addendum. Attending Addendum Pt was seen and examined. Agreed with Adelia SMITH exam, assessment and plan. 57- year-old male with a PMH of celiac disease, hypothyroidism and h/o pancreatitis who presents with diffuse abdominal pain 3 days associated with nausea and vomiting. CT abdominal findings are consistent with acute pancreatitis with no evidence of pancreatic necrosis or pseudocyst formation. GI consulted. Will do conservative management. Continue IVF, pain control and keep NPO for now. MD [place] Resuscitation Status VTE Prophylaxis Will order VTE Prophylaxis: Yes
[2017-09-29 18:12] VITALS: O2SAT 98
[2017-09-29] MEDS: KETOROLAC TROMETHAMINE 30 MG/ML VIAL IV PRN (18:28)
[2017-09-29 18:30] VITALS: BP 128/82; PULSE 91; TEMP 36.9; O2SAT 98; Ht 176.5 cm; Wt 90.8 kg
[2017-09-29] MEDS: LACTATED RINGER'S 1000ML 1,000 ML IV SCH (18:41)
[2017-09-29] MEDS: DOCUSATE SODIUM 100 MG CAP PO SCH (20:00)
[2017-09-29] MEDS: MoRPHine SULFATE 4 MG/ML 1 ML CARP\\VIAL IV PRN (20:55)
[2017-09-29 23:20] VITALS: BP 134/77; PULSE 102; TEMP 37.9; O2SAT 93
[2017-09-30] MEDS: ACETAMINOPHEN 325 MG TAB PO PRN ×2 (00:04→16:15)
[2017-09-30] MEDS: KETOROLAC TROMETHAMINE 30 MG/ML VIAL IV PRN ×4 (00:04→20:10)
[2017-09-30] MEDS: LACTATED RINGER'S 1000ML 1,000 ML IV SCH ×4 (01:12→23:23)
[2017-09-30 01:15] VITALS: TEMP 37.6
[2017-09-30] MEDS: MoRPHine SULFATE 4 MG/ML 1 ML CARP\\VIAL IV PRN ×4 (04:06→23:23)
[2017-09-30] MEDS: DOCUSATE SODIUM 100 MG CAP PO SCH ×2 (07:14→20:00)
[2017-09-30 07:16] VITALS: BP 119/72; PULSE 92; TEMP 37.1; O2SAT 95
[2017-09-30 07:20] LABS: HEMATOCRIT 39.3 % (42-52); HEMOGLOBIN 13.4 g/dL (14.0-18.0); MEAN CELL VOLUME 91.8 fL (80-100); MEAN CORPUSCULAR HEMOGLOBIN 31.3 pg (25-34); MEAN CORPUSCULAR HGB CONC 34.1 g/dl (32-36); MEAN PLATELET VOLUME 9.6 fL (7.4-10.4); PLATELET COUNT 242 K/uL (130-400); RED CELL DISTRIBUTION WIDTH CV 13.4 % (11.5-14.5); WHITE BLOOD COUNT 23.52 K/uL (4.8-10.8)
[2017-09-30 07:42] LABS: BASO % 0.2 %; BASO ABS # 0.04 K/uL (0-0.2); EOS % 0.2 %; EOS ABS # 0.05 K/uL (0-0.5); LYMPH % 8.3 %; LYMPH ABS # 1.95 K/uL (1.2-3.4); MONO % 17.1 %; MONO ABS # 4.03 K/uL (0.11-0.59); NEUT % 73.8 %; NEUT ABS # 17.35 K/uL (1.4-6.5)
[2017-09-30 07:54] LABS: ALBUMIN 2.9 gm/dl (3.4-5.0); CALCIUM 8.5 mg/dl (8.5-10.1); CREATININE 0.98 mg/dl (0.60-1.40); POTASSIUM 3.6 mmol/L (3.5-5.1)
[2017-09-30 07:57] LABS: TOTAL PROTEIN 7.1 gm/dl (6.4-8.2)
[2017-09-30] MEDS ORDERED: LACTATED RINGER'S 1000ML 1,000 ML IV SCH (10:30)
[2017-09-30] MEDS ORDERED: PIPERACILL/TAZOBAC CONSULT ACTIVE PRN (10:30)
--- NOTE | 2017-09-30 11:15 | Gastrointestinal Consultation ---
Gastrointestinal Consultation Date of Consultation: September 30, 2017 Attending Physician: Galileo Jean Consulting Physician: Miguel Angel Ambrose Reason for Consultation: Pancreatitis History of Present Illness Patient is a 57 year old male who presented to ED yesterday w /o abd pain since the weekend. Started around Friday after eating smoked chicken thighs. Abd pain started in mid area then radiating to bilateral sides w some radiation to his lower back. Mild nausea w 2 episodes of vomiting. Upon evaluation in ED he was noted to have leukocytosis WBC 18, this AM increased to 23. H/H stable. His CMP looks normal including normal LFT but Lipase was elevated to 784, previously in 300s back in July when he went to ED for similar abd pain symptoms suspected to be pancreatitis related as well. Abd imaging w CT, u/s showed normal appearing gallbladder w/o stone/sludge and CBD 2mm, pancreas w some stranding consistent w acute pancreatitis. No cyst, necrosis or fluid collection noted. He denies tobacco, ETOH, illicit drug uses. No new meds recently. He has hx of celiac disease diagnosed via endoscopy bx in 2016. Been gluten free, and gained 40 lbs since diagnosed. He admits to eat fatty foods such as salami, grease when cooking eggs, potato chips. He denies any family hx of autoimmune pancreatitis. He is primarily seen by ANNA Thomson in GI clinic. Was scheduled for EGD , EUS eval on 10/08/16. Previous abd u/s unclear for gallbladder sludge vs artifact findings. He had declined to be referred to Surgery. Past Medical/Surgical History Medical Problems: (1) Pancreatitis Status: Acute Past Medical History: See above, hypothyrodism, impotence, osteoporosis Past Surgical History: Inguinal hernia repair, vasectomy Social History Smoking Status: Never Smoker Drug Use: none Marital Status: Housing Status: lives with family Occupation Status: employed Allergies Coded Allergies: No Known Allergies (Unverified , 09/29/17) Current Medications Home Meds and Scripts Medications Dose Route/Sig Max Daily Dose Days Date Category Dose Instructions Vitamin B-12 (Cyanocobalamin) 6,000 Mcg Sub 1 Tab SL DAILY 09/29/17 Reported Calcium + D3 600-200 mg-Unit (Calcium Carbonate-Vitamin D) 1 Tab Tab 2 Tabs PO DAILY 09/29/17 Reported Centrum Silver Adult 50+ (Multiple Vitamins W/ Minerals) 1 Tab Tab 1 Tab PO DAILY 09/29/17 Reported Folvite (Folic Acid) 1 Mg Tab 1 Mg PO DAILY 09/29/17 Reported Vitamin D 57870 Unit (Ergocalciferol) 50,000 Unit Cap 50,000 Unit PO WK 09/29/17 Reported Takes every Friday Synthroid (Levothyroxine Sodium) 100 Mcg Tab 100 Mcg PO DAILY 09/29/17 Reported Cialis (Tadalafil) 5 Mg Tab 5 Mg PO DAILY 09/29/17 Reported Review of Systems Constitutional: + fever (low grade 37.6 overnight), No chills Respiratory: No cough, No shortness of breath Cardiac: No chest pain Abdomen: + see HPI, + pain, + nausea, + vomiting, No diarrhea, No constipation , No GI bleeding Skin: No rash, No itch, No jaundice Physical Exam Date Time Temp Pulse Resp B/P (MAP) Pulse Ox O2 Delivery O2 Flow Rate FiO2 09/30/17 08:00 Room Air 09/30/17 07:16 37.1 92 20 119/72 (88) 95 Room Air 09/30/17 01:15 37.6 09/29/17 23:20 37.9 102 18 134/77 (96) 93 Room Air 09/29/17 18:30 36.9 91 20 128/82 Room Air 09/29/17 18:30 36.9 91 20 128/82 (97) 98 Room Air 09/29/17 18:12 85 24 156/91 98 09/29/17 18:01 85 24 156/91 09/29/17 17:41 85 24 138/88 09/29/17 16:36 84 15 124/87 09/29/17 16:06 91 17 124/87 09/29/17 14:33 93 16 09/29/17 14:03 98 21 09/29/17 13:58 101 09/29/17 13:55 142/100 09/29/17 13:38 37.0 100 18 124/91 98 Room Air General Appearance: WD/WN, no apparent distress, + obese Eyes: normal inspection, PERRL, EOMI Neck: supple, no JVD, trachea midline Respiratory/Chest: normal breath sounds, no respiratory distress, no accessory muscle use Cardiovascular: regular rate, rhythm, no gallop, no murmur Abdomen: normal bowel sounds, + tenderness (diffuse) Extremities: normal inspection, no pedal edema, no calf tenderness Neurologic/Psych: alert, normal mood/affect, oriented x 3 Skin: normal color, no jaundice, no rash Laboratory Results Last 24 Hours Test 09/29/17 13:51 09/30/17 06:48 White Blood Count 18.59 K/uL 23.52 K/uL Red Blood Count 4.64 M/uL 4.28 M/uL Hemoglobin 14.5 g/dL 13.4 g/dL Hematocrit 42.5 % 39.3 % Mean Corpuscular Volume 91.6 fL 91.8 fL Mean Corpuscular Hemoglobin 31.3 pg 31.3 pg Mean Corpuscular Hemoglobin Concent 34.1 g/dl 34.1 g/dl Platelet Count 290 K/uL 242 K/uL Mean Platelet Volume 9.3 fL 9.6 fL Neutrophils (%) (Auto) 77.8 % 73.8 % Lymphocytes (%) (Auto) 7.1 % 8.3 % Monocytes (%) (Auto) 14.6 % 17.1 % Eosinophils (%) (Auto) 0.1 % 0.2 % Basophils (%) (Auto) 0.1 % 0.2 % Neutrophils # (Auto) 14.45 K/uL 17.35 K/uL Lymphocytes # (Auto) 1.32 K/uL 1.95 K/uL Monocytes # (Auto) 2.72 K/uL 4.03 K/uL Eosinophils # (Auto) 0.02 K/uL 0.05 K/uL Basophils # (Auto) 0.02 K/uL 0.04 K/uL RDW Standard Deviation 44.3 fL 45.0 fL RDW Coefficient of Variation 13.3 % 13.4 % Immature Granulocyte % (Auto) 0.3 % 0.4 % Immature Granulocyte # (Auto) 0.06 K/uL 0.10 K/uL Sodium Level 133 mmol/L 138 mmol/L Potassium Level 3.8 mmol/L 3.6 mmol/L Chloride Level 100 mmol/L 104 mmol/L Carbon Dioxide Level 26 mmol/L 27 mmol/L Anion Gap 7.0 mmol/L 6.0 mmol/L Blood Urea Nitrogen 14 mg/dl 14 mg/dl Creatinine 0.89 mg/dl 0.98 mg/dl Est Creatinine Clear Calc Drug Dose 104.5 ml/min 95.7 ml/min Estimated GFR () 111.6 100.2 Estimated GFR (Non- 96.3 86.4 BUN/Creatinine Ratio 15.4 14.2 Random Glucose 124 mg/dl 92 mg/dl Calcium Level 9.9 mg/dl 8.5 mg/dl Total Bilirubin 0.8 mg/dl 0.8 mg/dl Aspartate Amino Transf (AST/SGOT) 22 U/L 18 U/L Alanine Aminotransferase (ALT/SGPT) 29 U/L 23 U/L Alkaline Phosphatase 84 U/L 68 U/L Total Protein 8.5 gm/dl 7.1 gm/dl Albumin 3.9 gm/dl 2.9 gm/dl Globulin 4.6 gm/dl 4.2 gm/dl Albumin/Globulin Ratio 0.8 0.7 Lipase 784 U/L 363 U/L Direct Bilirubin 0.2 mg/dl Impression Patient is a 57 year old male w mild fever, abd pain, n/v symptoms, upon evaluation found to have leukocytosis, elevated lipase, normal LFTs, abd imaging w u/s, CT consistent acute pancreatitis w/o necrosis, fluid collection. This is his second pancreatitis episode this year, last one in July. He has hx of celiac disease diagnosed in 2017, gained 40 lbs since then, admits to eating fatty foods. Previously had u/s which showed possible gallbladder sludge and been scheduled to have EGD/EUS eval on 10/08/17. Most recent imaging showed normal gallbladder w/o stones/sludge and CBD was 2mm. He denies any ETOH, illicit drugs, tobacco. Plan - Give additional 1L LR bolus, then continue rate at 150ml/hr - Start CL diet - Start antibx given increasing WBC and mild fever though the leukocytosis may also be partly reactive response to inflammation. Will give Imipenem IV - Check fasting lipid profile in AM labs - MRCP today to r/o pancreas divisum - Need eventual EUS eval but will postpone date to 4-6 weeks after this episode of pancreatitis. Will also plan for outpt workup for autoimmune pancreatitis markers - Stay on gluten free, low fat diet. I saw and evaluated the patient. He has a history of celiac disease and presents with recurrent pancreatitis. The patient noted that he has persistent discomfort but did tolerate liquids today. Examination No obvious distress Mild epigastric tenderness No scleral icterus Impression: Patient with a history of recurrent pancreatitis without a specific etiology. I would suggest further evaluation for elevated triglycerides given his dietary habits. In addition I would suggest an MRCP to evaluate for evidence of occult cholelithiasis or pancreatic divisum. Recommendations Continue with IV hydration MRCP ordered Imipenem given leukocytosis Lipid panel to be ordered (If studies negative we will need to screen for autoimmune pancreatitis and genetic causes of pancreatitis as an outpatient)
[2017-09-30] MEDS ORDERED: PIPERACILL/TAZOBAC IV 3.375 GM in DEXTROSE 5% 100ML 100 ML IV SCH (14:00)
[2017-09-30] MEDS ORDERED: PIPERACILL/TAZOBAC IV 3.375 GM in DEXTROSE 5% 100ML 100 ML IV ONE (14:15)
[2017-09-30 14:27] VITALS: BP 126/78; PULSE 79; TEMP 37.5; O2SAT 95
[2017-09-30] MEDS ORDERED: IMIPENEM/CILASTATIN IV 500 MG in DEXTROSE 5% 100ML 100 ML IV ONE (15:30)
--- NOTE | 2017-09-30 15:57 | DIAGNOSTIC IMAGING REPORT ---
MRCP CLINICAL HISTORY: Pancreatitis. Clinical concern for pancreas divisum. COMPARISON STUDY: Abdominal CT dated 09/29/2017. TECHNIQUE: Abdominal MRCP is performed utilizing various T2-weighted sequences in the axial and coronal planes. IV contrast was not administered for this examination. 3-D reformats are created and assessed. The examination is compromised by motion artifact. FINDINGS: The gallbladder is normal in appearance. No gallstones are identified. There is no intra or extrahepatic biliary ductal dilatation. The common bile duct measures up to 2 mm. There are no filling defects to suggest choledocholithiasis. The pancreatic duct is normal in caliber. There is no clear evidence of pancreas divisum. A 7 mm T2 hyperintense structure adjacent the pancreatic duct in the high-grade body seen on axial image #12 is typical in appearance for small sidebranch IPMN. The hepatic parenchyma is normal as imaged. The spleen, adrenal glands, and kidneys are grossly unremarkable. The pancreas is edematous and there is peripancreatic inflammation and fluid consistent with the known history of acute pancreatitis. There is no evidence of bowel obstruction. No abdominal adenopathy is identified. Trace pleural effusions are suggested. The abdominal aorta is normal in caliber. The visualized bony structures are normal in appearance. IMPRESSION: 1. No gallstones are identified. There is no intra or extrahepatic biliary ductal dilatation. 2. The pancreatic duct is normal in caliber. There is no convincing evidence of pancreas divisum on this motion degraded examination. 3. Findings are consistent with acute pancreatitis. 4. A 7 mm sidebranch IPMN is incidentally noted in the pancreatic body. Electronically signed by: Marvel Rizzo M.D. 09/30/2017 3:55 PM Dictated Date/Time: 09/30/2017 3:50 PM
--- NOTE | 2017-09-30 16:30 | Progress Note ---
Medicine Progress Note Date & Time of Visit: September 30, 2017 at 16:25. Subjective seen resting in bed, comfortable states diffuse abdominal pain is about the same as yesterday tolerated clear liquid diet denies dyspnea, chest pain, palpitations, dizziness had low grade fever in AM no other symptoms Objective Last 8 Hrs Date Time Temp Pulse Resp B/P (MAP) Pulse Ox O2 Delivery O2 Flow Rate FiO2 09/30/17 16:00 Room Air 09/30/17 14:27 37.5 79 16 126/78 (94) 95 Room Air Physical Exam: General- oriented x 3, not in distress, speaks in sentences with no effort Head- atraumatic Eyes- anicteric ENT- oropharynx clear Neck- supple, no JVD, no adenopathy, no thyromegaly Lungs- clear to auscultation bilaterally Heart- regular rhythm; no murmur, normal rate Abdomen- normal bowel sounds, non distended, soft , (+) mild diffuse tenderness Extremities- no pretibial edema, no calf tenderness; peripheral pulses intact Neuro- alert, oriented x 3; no gross focal deficits Skin- warm & dry Laboratory Results: Last 24 Hours Test 09/30/17 06:48 White Blood Count 23.52 K/uL Red Blood Count 4.28 M/uL Hemoglobin 13.4 g/dL Hematocrit 39.3 % Mean Corpuscular Volume 91.8 fL Mean Corpuscular Hemoglobin 31.3 pg Mean Corpuscular Hemoglobin Concent 34.1 g/dl Platelet Count 242 K/uL Mean Platelet Volume 9.6 fL Neutrophils (%) (Auto) 73.8 % Lymphocytes (%) (Auto) 8.3 % Monocytes (%) (Auto) 17.1 % Eosinophils (%) (Auto) 0.2 % Basophils (%) (Auto) 0.2 % Neutrophils # (Auto) 17.35 K/uL Lymphocytes # (Auto) 1.95 K/uL Monocytes # (Auto) 4.03 K/uL Eosinophils # (Auto) 0.05 K/uL Basophils # (Auto) 0.04 K/uL RDW Standard Deviation 45.0 fL RDW Coefficient of Variation 13.4 % Immature Granulocyte % (Auto) 0.4 % Immature Granulocyte # (Auto) 0.10 K/uL Sodium Level 138 mmol/L Potassium Level 3.6 mmol/L Chloride Level 104 mmol/L Carbon Dioxide Level 27 mmol/L Anion Gap 6.0 mmol/L Blood Urea Nitrogen 14 mg/dl Creatinine 0.98 mg/dl Est Creatinine Clear Calc Drug Dose 95.7 ml/min Estimated GFR () 100.2 Estimated GFR (Non- 86.4 BUN/Creatinine Ratio 14.2 Random Glucose 92 mg/dl Calcium Level 8.5 mg/dl Total Bilirubin 0.8 mg/dl Direct Bilirubin 0.2 mg/dl Aspartate Amino Transf (AST/SGOT) 18 U/L Alanine Aminotransferase (ALT/SGPT) 23 U/L Alkaline Phosphatase 68 U/L Total Protein 7.1 gm/dl Albumin 2.9 gm/dl Globulin 4.2 gm/dl Albumin/Globulin Ratio 0.7 Lipase 363 U/L Assessment & Plan Patient is a 57-year-old male with a PMH of celiac disea, hypothyroidism and h/ o pancreatitis who presents with diffuse abdominal pain 3 days and was found to have acute pancreatitis. ACUTE PANCREATITIS - recurrence, last episode July 2017 -Unknown etiology, possibly gallstones -CT abd pelvis with findings are consistent with acute pancreatitis. There is no evidence of pancreatic necrosis or pseudocyst formation Liver US: no gallbladder stone/sludge, CBD normal (sludge noted last month) - pain about the same Lipase normalized but had low grade fever in AM and leukocytosis - GI consulted MRCP ordered TG level tomorrow Imipenem started LR continued diet advanced to clear liquids - appreciate GI SVC rec Hypothyroidism: -Levothyroxine Celiac disease: -Gluten free diet once able to tolerate food -Vit B12, folic acid supplementation Osteoporosis: -Calcium, Vit D DVT Ppx: SCDs for now Code status: FULL Dispo: anticipate d/c home when medically stable Current Inpatient Medications: Current Inpatient Medications Medications (Trade) Dose Ordered Sig/Luz Elena Route Start Time Stop Time Status Last Admin Dose Admin Ioversol (Optiray 320) 125 ml UD PRN IV 09/29/17 16:45 10/03/17 16:44 Lactated Ringer's 1,000 ml @ 150 mls/hr Q6H40M IV 09/29/17 18:30 10/29/17 18:29 09/30/17 14:17 150 MLS/HR Polyethylene (Miralax Powder Packet) 17 gm DAILY PRN PO 09/29/17 17:30 10/29/17 17:29 Docusate Sodium (coLACE CAP) 100 mg BID PO 09/29/17 20:00 10/29/17 20:59 Ondansetron HCl (Zofran Inj) 4 mg Q4H PRN IV 09/29/17 17:30 10/29/17 17:29 09/29/17 20:06 4 MG Morphine Sulfate (MoRPHine SULFATE INJ) 4 mg Q3H PRN IV 09/29/17 17:30 10/13/17 17:29 09/30/17 09:46 4 MG Ketorolac Tromethamine (Toradol Inj) 30 mg Q6H PRN IV 09/29/17 17:45 10/04/17 17:44 09/30/17 14:14 30 MG Ondansetron HCl (Zofran Inj) 4 mg Q6H PRN IV 09/29/17 18:00 10/29/17 17:59 Acetaminophen (Tylenol Tab) 650 mg Q4H PRN PO 09/30/17 00:00 10/30/17 00:00 09/30/17 16:15 650 MG Imipenem/ Cilastatin Sodium 500 mg/Dextrose 110 ml @ 100 mls/hr Q6H IV 09/30/17 21:00 10/10/17 14:49 Imipenem/ Cilastatin Sodium 500 mg/Dextrose 110 ml @ 100 mls/hr 1530 ONCE IV 09/30/17 15:30 09/30/17 16:35 09/30/17 16:10 100 MLS/HR
[2017-09-30] MEDS: IMIPENEM/CILASTATIN IV 500 MG in DEXTROSE 5% 100ML 100 ML IV SCH (20:16)
[2017-10-01 00:16] VITALS: BP 126/78; PULSE 81; TEMP 36.9; O2SAT 95
[2017-10-01] MEDS: IMIPENEM/CILASTATIN IV 500 MG in DEXTROSE 5% 100ML 100 ML IV SCH ×3 (02:25→14:43)
[2017-10-01] MEDS: KETOROLAC TROMETHAMINE 30 MG/ML VIAL IV PRN ×4 (02:26→23:57)
[2017-10-01] MEDS: LACTATED RINGER'S 1000ML 1,000 ML IV SCH ×3 (05:53→23:23)
[2017-10-01 07:03] LABS: BASO % 0.1 %; BASO ABS # 0.02 K/uL (0-0.2); EOS ABS # 0.32 K/uL (0-0.5); HEMATOCRIT 37.1 % (42-52); HEMOGLOBIN 12.5 g/dL (14.0-18.0); IG# 0.06 K/uL (0.00-0.02); LYMPH % 14.3 %; LYMPH ABS # 2.24 K/uL (1.2-3.4); MEAN CELL VOLUME 91.4 fL (80-100); MEAN CORPUSCULAR HEMOGLOBIN 30.8 pg (25-34); MEAN CORPUSCULAR HGB CONC 33.7 g/dl (32-36); MEAN PLATELET VOLUME 8.8 fL (7.4-10.4); MONO % 16.3 %; MONO ABS # 2.56 K/uL (0.11-0.59); NEUT % 66.9 %; NEUT ABS # 10.48 K/uL (1.4-6.5); PLATELET COUNT 218 K/uL (130-400); RED CELL DISTRIBUTION WIDTH SD 43.9 fL (36.4-46.3); WHITE BLOOD COUNT 15.68 K/uL (4.8-10.8)
[2017-10-01 07:09] VITALS: BP 128/74; PULSE 80; TEMP 36.7; O2SAT 95
[2017-10-01 07:36] LABS: ALBUMIN 2.6 gm/dl (3.4-5.0); CALCIUM 8.1 mg/dl (8.5-10.1); CREATININE 0.81 mg/dl (0.60-1.40); POTASSIUM 3.5 mmol/L (3.5-5.1)
[2017-10-01 07:39] LABS: TOTAL PROTEIN 6.5 gm/dl (6.4-8.2)
[2017-10-01] MEDS: DOCUSATE SODIUM 100 MG CAP PO SCH ×2 (08:00→20:00)
--- NOTE | 2017-10-01 10:22 | Progress Note ---
Medicine Progress Note Date & Time of Visit: October 01, 2017 at 10:22. Subjective Seen sitting up in bed, appears more comfortable States his abdominal pain is improving No BMs had positive flatus No nausea Denies other symptoms Objective Last 8 Hrs Date Time Temp Pulse Resp B/P (MAP) Pulse Ox O2 Delivery O2 Flow Rate FiO2 10/01/17 08:00 Room Air 10/01/17 07:09 36.7 80 20 128/74 (92) 95 Room Air Physical Exam: General- oriented x 3, not in distress, speaks in sentences with no effort Eyes- anicteric Neck- supple, no JVD Lungs- clear breath sounds bilaterally, no rales wheezes Heart- regular rhythm; no murmur, normal rate Abdomen- normal bowel sounds, non distended, soft , no tenderness Extremities- no pretibial edema, no calf tenderness; peripheral pulses intact Neuro- alert, oriented x 3; no gross focal deficits Skin- warm & dry Laboratory Results: Last 24 Hours Test 10/01/17 06:49 White Blood Count 15.68 K/uL Red Blood Count 4.06 M/uL Hemoglobin 12.5 g/dL Hematocrit 37.1 % Mean Corpuscular Volume 91.4 fL Mean Corpuscular Hemoglobin 30.8 pg Mean Corpuscular Hemoglobin Concent 33.7 g/dl Platelet Count 218 K/uL Mean Platelet Volume 8.8 fL Neutrophils (%) (Auto) 66.9 % Lymphocytes (%) (Auto) 14.3 % Monocytes (%) (Auto) 16.3 % Eosinophils (%) (Auto) 2.0 % Basophils (%) (Auto) 0.1 % Neutrophils # (Auto) 10.48 K/uL Lymphocytes # (Auto) 2.24 K/uL Monocytes # (Auto) 2.56 K/uL Eosinophils # (Auto) 0.32 K/uL Basophils # (Auto) 0.02 K/uL RDW Standard Deviation 43.9 fL RDW Coefficient of Variation 13.0 % Immature Granulocyte % (Auto) 0.4 % Immature Granulocyte # (Auto) 0.06 K/uL Sodium Level 137 mmol/L Potassium Level 3.5 mmol/L Chloride Level 106 mmol/L Carbon Dioxide Level 26 mmol/L Anion Gap 5.0 mmol/L Blood Urea Nitrogen 9 mg/dl Creatinine 0.81 mg/dl Est Creatinine Clear Calc Drug Dose 115.7 ml/min Estimated GFR () 116.0 Estimated GFR (Non- 100.1 BUN/Creatinine Ratio 11.5 Random Glucose 91 mg/dl Calcium Level 8.1 mg/dl Total Bilirubin 0.9 mg/dl Direct Bilirubin 0.2 mg/dl Aspartate Amino Transf (AST/SGOT) 16 U/L Alanine Aminotransferase (ALT/SGPT) 18 U/L Alkaline Phosphatase 63 U/L Total Protein 6.5 gm/dl Albumin 2.6 gm/dl Globulin 3.9 gm/dl Albumin/Globulin Ratio 0.7 Triglycerides Level 52 mg/dl Cholesterol Level 81 mg/dl HDL Cholesterol 36 mg/dl LDL Cholesterol, Calculated 35 mg/dl VLDL Cholesterol, Calculated 10 mg/dl Cholesterol/HDL Ratio 2.3 Lipase 182 U/L Assessment & Plan Patient is a 57-year-old male with a PMH of celiac disea, hypothyroidism and h/ o pancreatitis who presents with diffuse abdominal pain 3 days and was found to have acute pancreatitis. ACUTE PANCREATITIS - recurrence, last episode July 2017 -Unknown etiology, possibly gallstones -CT abd pelvis with findings are consistent with acute pancreatitis. There is no evidence of pancreatic necrosis or pseudocyst formation Liver US: no gallbladder stone/sludge, CBD normal (sludge noted last month) -Pain resolving Afebrile now Lipase normalized - GI consulted MRCP ordered no signs of cholelithiasis TG level normal Imipenem started, will discontinue today LR decreased in rate diet advanced -Plan for outpatient endoscopic ultrasound per GI - appreciate GI SVC rec Hypothyroidism: -Levothyroxine Celiac disease: -Gluten free diet once able to tolerate food -Vit B12, folic acid supplementation Osteoporosis: -Calcium, Vit D DVT Ppx: SCDs for now Code status: FULL Dispo: anticipate d/c home when medically stable and cleared by GI, possibly tomorrow Current Inpatient Medications: Current Inpatient Medications Medications (Trade) Dose Ordered Sig/Luz Elena Route Start Time Stop Time Status Last Admin Dose Admin Ioversol (Optiray 320) 125 ml UD PRN IV 09/29/17 16:45 10/03/17 16:44 Lactated Ringer's 1,000 ml @ 150 mls/hr Q6H40M IV 09/29/17 18:30 10/29/17 18:29 10/01/17 05:53 150 MLS/HR Polyethylene (Miralax Powder Packet) 17 gm DAILY PRN PO 09/29/17 17:30 10/29/17 17:29 Docusate Sodium (coLACE CAP) 100 mg BID PO 09/29/17 20:00 10/29/17 20:59 Ondansetron HCl (Zofran Inj) 4 mg Q4H PRN IV 09/29/17 17:30 10/29/17 17:29 09/29/17 20:06 4 MG Morphine Sulfate (MoRPHine SULFATE INJ) 4 mg Q3H PRN IV 09/29/17 17:30 10/13/17 17:29 09/30/17 23:23 4 MG Ketorolac Tromethamine (Toradol Inj) 30 mg Q6H PRN IV 09/29/17 17:45 10/04/17 17:44 10/01/17 02:26 30 MG Ondansetron HCl (Zofran Inj) 4 mg Q6H PRN IV 09/29/17 18:00 10/29/17 17:59 Acetaminophen (Tylenol Tab) 650 mg Q4H PRN PO 09/30/17 00:00 10/30/17 00:00 09/30/17 16:15 650 MG Imipenem/ Cilastatin Sodium 500 mg/Dextrose 110 ml @ 100 mls/hr Q6H IV 09/30/17 21:00 10/10/17 14:49 10/01/17 08:32 100 MLS/HR
--- NOTE | 2017-10-01 11:26 | Medical Consult ---
Consultation Date of Consultation: October 01, 2017. Attending Physician: Galileo Jean MD Reason for Consultation: Imipenem use History of Present Illness 57-year-old male with history of celiac disease, 1st episode of pancreatitis approximately 6 years ago, developed recurrent pancreatitis 1 month ago not necessitating hospitalization, treated conservatively with improvement. After some food indulgence Friday and Friday, patient developed increasing abdominal pain, radiating to his back, up to 10/10 in intensity. He was brought to the hospital and found to have evidence of recurrent pancreatitis with elevation of lipase and abnormal CT scan. CT scan of the abdomen, read by me, shows no evidence of necrotizing infection or extra pancreatic involvement. Patient had brief fever, now resolved, and pain has significantly improved. [place] [id number]. Patient has now had MRCP which shows no evidence of stone disease or obstruction. Past Medical/Surgical History Medical Problems: (1) Pancreatitis Status: Acute Medical Problems: (1) Celiac disease (2) Hypothyroidism (3) Impotence of organic origin (4) Osteoporosis Family History Noncontributory Social History Smoking Status: Never Smoker Alcohol Use: none Drug Use: none Marital Status: Housing Status: lives with family Occupation Status: employed Allergies Coded Allergies: No Known Allergies (Unverified , 09/29/17) Current Inpatient Medications Current Inpatient Medications Medications (Trade) Dose Ordered Sig/Luz Elena Route Start Time Stop Time Status Last Admin Dose Admin Ioversol (Optiray 320) 125 ml UD PRN IV 09/29/17 16:45 10/03/17 16:44 Lactated Ringer's 1,000 ml @ 150 mls/hr Q6H40M IV 09/29/17 18:30 10/29/17 18:29 10/01/17 10:57 150 MLS/HR Polyethylene (Miralax Powder Packet) 17 gm DAILY PRN PO 09/29/17 17:30 10/29/17 17:29 Docusate Sodium (coLACE CAP) 100 mg BID PO 09/29/17 20:00 10/29/17 20:59 Ondansetron HCl (Zofran Inj) 4 mg Q4H PRN IV 09/29/17 17:30 10/29/17 17:29 09/29/17 20:06 4 MG Morphine Sulfate (MoRPHine SULFATE INJ) 4 mg Q3H PRN IV 09/29/17 17:30 10/13/17 17:29 09/30/17 23:23 4 MG Ketorolac Tromethamine (Toradol Inj) 30 mg Q6H PRN IV 09/29/17 17:45 10/04/17 17:44 10/01/17 02:26 30 MG Ondansetron HCl (Zofran Inj) 4 mg Q6H PRN IV 09/29/17 18:00 10/29/17 17:59 Acetaminophen (Tylenol Tab) 650 mg Q4H PRN PO 09/30/17 00:00 10/30/17 00:00 09/30/17 16:15 650 MG Imipenem/ Cilastatin Sodium 500 mg/Dextrose 110 ml @ 100 mls/hr Q6H IV 09/30/17 21:00 10/10/17 14:49 10/01/17 08:32 100 MLS/HR Review of Systems All systems were reviewed and are negative except as per HPI Physical Exam Date Time Temp Pulse Resp B/P (MAP) Pulse Ox O2 Delivery O2 Flow Rate FiO2 10/01/17 08:00 Room Air 10/01/17 07:09 36.7 80 20 128/74 (92) 95 Room Air 10/01/17 00:30 Room Air 10/01/17 00:16 36.9 81 20 126/78 (94) 95 Room Air 09/30/17 20:15 Room Air 09/30/17 16:00 Room Air 09/30/17 14:27 37.5 79 16 126/78 (94) 95 Room Air General Appearance: WD/WN, no apparent distress Head: normocephalic, atraumatic Eyes: normal inspection, EOMI, sclerae normal ENT: normal ENT inspection, hearing grossly normal, pharynx normal Neck: supple, no adenopathy, thyroid normal, trachea midline Respiratory/Chest: chest non-tender, lungs clear, normal breath sounds, no respiratory distress Cardiovascular: regular rate, rhythm, no gallop, no murmur Abdomen/GI: normal bowel sounds, soft, no organomegaly, + tenderness (Mild) Back: normal inspection, no CVA tenderness Extremities/Musculoskelatal: normal inspection, no calf tenderness, normal capillary refill, non-tender Neurologic/Psych: alert, normal mood/affect, oriented x 3 Skin: normal color, warm/dry, no rash Lymphatic: no adenopathy Laboratory Results Last 24 Hours Test 10/01/17 06:49 White Blood Count 15.68 K/uL Red Blood Count 4.06 M/uL Hemoglobin 12.5 g/dL Hematocrit 37.1 % Mean Corpuscular Volume 91.4 fL Mean Corpuscular Hemoglobin 30.8 pg Mean Corpuscular Hemoglobin Concent 33.7 g/dl Platelet Count 218 K/uL Mean Platelet Volume 8.8 fL Neutrophils (%) (Auto) 66.9 % Lymphocytes (%) (Auto) 14.3 % Monocytes (%) (Auto) 16.3 % Eosinophils (%) (Auto) 2.0 % Basophils (%) (Auto) 0.1 % Neutrophils # (Auto) 10.48 K/uL Lymphocytes # (Auto) 2.24 K/uL Monocytes # (Auto) 2.56 K/uL Eosinophils # (Auto) 0.32 K/uL Basophils # (Auto) 0.02 K/uL RDW Standard Deviation 43.9 fL RDW Coefficient of Variation 13.0 % Immature Granulocyte % (Auto) 0.4 % Immature Granulocyte # (Auto) 0.06 K/uL Sodium Level 137 mmol/L Potassium Level 3.5 mmol/L Chloride Level 106 mmol/L Carbon Dioxide Level 26 mmol/L Anion Gap 5.0 mmol/L Blood Urea Nitrogen 9 mg/dl Creatinine 0.81 mg/dl Est Creatinine Clear Calc Drug Dose 115.7 ml/min Estimated GFR () 116.0 Estimated GFR (Non- 100.1 BUN/Creatinine Ratio 11.5 Random Glucose 91 mg/dl Calcium Level 8.1 mg/dl Total Bilirubin 0.9 mg/dl Direct Bilirubin 0.2 mg/dl Aspartate Amino Transf (AST/SGOT) 16 U/L Alanine Aminotransferase (ALT/SGPT) 18 U/L Alkaline Phosphatase 63 U/L Total Protein 6.5 gm/dl Albumin 2.6 gm/dl Globulin 3.9 gm/dl Albumin/Globulin Ratio 0.7 Triglycerides Level 52 mg/dl Cholesterol Level 81 mg/dl HDL Cholesterol 36 mg/dl LDL Cholesterol, Calculated 35 mg/dl VLDL Cholesterol, Calculated 10 mg/dl Cholesterol/HDL Ratio 2.3 Lipase 182 U/L Patient Name: RAHEEM PALOMINOOLHARMEET Emanuel Unit Number: [id number] Dictated: 09/29/171656 Transcribed: 09/29/171656 EV Printed Date/Time: [~ rep prt dt]/[~ rep prt tm] [~ rep ct labl] - [~ rep ct ivnm] [facility] [place] [address] Dictated: 09/29/171656 Transcribed: 09/29/171656 EV Printed Date/Time: [~ rep prt dt]/[~ rep prt tm] [~ rep ct labl] - [~ rep ct ivnm] [~ rep ct add3]] CT SCAN OF THE ABDOMEN AND PELVIS WITH IV CONTRAST CLINICAL HISTORY: Generalized abdominal pain. Elevated lipase. COMPARISON STUDY: Abdominal CT dated 08/22/2017. TECHNIQUE: Following the IV administration of 95 cc of Optiray 320, CT scan of the abdomen and pelvis is performed from the lung bases to the proximal femora. Images are reviewed in the axial, sagittal, and coronal planes. IV contrast was administered without complication. A dose lowering technique was utilized adhering to the principles of ALARA. CT DOSE: 546.73 mGy.cm FINDINGS: Lung bases: The heart is normal in size and without pericardial effusion. There are coronary artery calcifications. A tiny hiatal hernia is identified. The lung bases are clear. Liver: The contrast-enhanced liver is normal in size, contour, and attenuation. There is no intrahepatic biliary ductal dilatation. The hepatic veins and portal veins are patent. Gallbladder: Unremarkable. Spleen: Normal in size and attenuation. Pancreas: There is mild to moderate glandular atrophy of the pancreas. There is peripancreatic inflammatory stranding and trace fluid, greatest in the pancreatic head. The appearance is consistent with acute pancreatitis. The pancreatic parenchyma enhances. No organized peripancreatic fluid collection is identified. The splenic vein is patent. Adrenal glands: Unremarkable. Kidneys: The contrast enhanced kidneys are normal in size and without hydronephrosis. The kidneys enhance symmetrically. There is a 4 mm nonobstructing left renal calculus. Abdominal vasculature: The abdominal aorta is normal in course and caliber noting scattered foci of atherosclerotic calcification. Bowel: The small bowel and colon are normal in course and caliber. The appendix is normal as visualized. Peritoneum: There is no intraperitoneal free air or abdominal ascites. Lymphadenopathy: None. Pelvic viscera: The bladder, prostate, and seminal vesicles are normal as visualized. There is evidence of previous bilateral inguinal herniorrhaphy. Skeletal structures: No lytic or blastic lesions are seen. IMPRESSION: 1. Findings are consistent with acute pancreatitis. 2. There is no evidence of pancreatic necrosis or pseudocyst formation. 3. Nonobstructing left renal calculus. 4. Additional findings as above. Electronically signed by: Marvel Rizzo M.D. 09/29/2017 5:03 PM Dictated Date/Time: 09/29/2017 4:57 PM The status of this report is Signed. Draft = Not yet reviewed or approved by Radiologist. Signed = Reviewed and approved by Radiologist. <AttendingPhy></AttendingPhy> <FamilyPhy>Aram Muller M.D.</FamilyPhy> < PrimaryPhy>Aram Muller M.D.</PrimaryPhy> <UnitNumber>[id number]</ UnitNumber> <VisitNumber>[id number]</VisitNumber> <PatientName>BALTA PALOMINO</PatientName> <DateOfBirth>1960</DateOfBirth> <Location>[facility]</Location > <ServiceDate>09/29/17</ServiceDate> <MNE>ESINDI</MNE> <OrderingPhy>Apple Jones PA-C</OrderingPhy> <OrderingPhyMNE>f rep ord dr viveros</OrderingPhyMNE> < DictatingPhyMNE>f rep dict dr viveros</DictatingPhyMNE> <CCListMNE>f rep ct mne</ CCListMNE> <AdmittingPhyMNE>f pt admit dr viveros</AdmittingPhyMNE> <AttendingPhyMNE >f pt attend dr viveros</AttendingPhyMNE> <ConsultingPhyMNE>f pt consult dr viveros</ConsultingPhyMNE> <FamilyPhyMNE>f pt fam dr viveros</FamilyPhyMNE> <OtherPhyMNE>f pt other dr viveros</OtherPhyMNE> < PrimaryPhyMNE>f pt prim care dr viveros</PrimaryPhyMNE> <ReferringPhyMNE>f pt referring dr viveros</ReferringPhyMNE> Assessment & Plan Recurrent pancreatitis, now improving, without evidence of necrotizing infection or extra pancreatic manifestations. I think that imipenem can be safely discontinued and patient followed closely as diet is advanced. Will discuss with all involved.
--- NOTE | 2017-10-01 11:47 | Gastroenterology Progress Note ---
Progress Note Date of Service: October 01, 2017 Subjective Pt evaluation today including: conversation w/ patient, physical exam, chart review, lab review, review of inpatient medication list Pt feels a lot better, abd not as painful. Tolerating CL diet w/o n/v, increased abd pain. He's passing flatus but no BM yet. Review of Systems Constitutional: No fever, No chills Respiratory: No cough, No shortness of breath Cardiac: No chest pain Abdomen: No pain, No nausea, No vomiting Skin: No rash, No itch, No jaundice Medications Current Inpatient Medications Medications (Trade) Dose Ordered Sig/Luz Elena Route Start Time Stop Time Status Last Admin Dose Admin Ioversol (Optiray 320) 125 ml UD PRN IV 09/29/17 16:45 10/03/17 16:44 Lactated Ringer's 1,000 ml @ 150 mls/hr Q6H40M IV 09/29/17 18:30 10/29/17 18:29 10/01/17 10:57 150 MLS/HR Polyethylene (Miralax Powder Packet) 17 gm DAILY PRN PO 09/29/17 17:30 10/29/17 17:29 Docusate Sodium (coLACE CAP) 100 mg BID PO 09/29/17 20:00 10/29/17 20:59 Ondansetron HCl (Zofran Inj) 4 mg Q4H PRN IV 09/29/17 17:30 10/29/17 17:29 09/29/17 20:06 4 MG Morphine Sulfate (MoRPHine SULFATE INJ) 4 mg Q3H PRN IV 09/29/17 17:30 10/13/17 17:29 09/30/17 23:23 4 MG Ketorolac Tromethamine (Toradol Inj) 30 mg Q6H PRN IV 09/29/17 17:45 10/04/17 17:44 10/01/17 02:26 30 MG Ondansetron HCl (Zofran Inj) 4 mg Q6H PRN IV 09/29/17 18:00 10/29/17 17:59 Acetaminophen (Tylenol Tab) 650 mg Q4H PRN PO 09/30/17 00:00 10/30/17 00:00 09/30/17 16:15 650 MG Imipenem/ Cilastatin Sodium 500 mg/Dextrose 110 ml @ 100 mls/hr Q6H IV 09/30/17 21:00 10/10/17 14:49 10/01/17 08:32 100 MLS/HR Objective Vital Signs Date Time Temp Pulse Resp B/P (MAP) Pulse Ox O2 Delivery O2 Flow Rate FiO2 10/01/17 08:00 Room Air 10/01/17 07:09 36.7 80 20 128/74 (92) 95 Room Air 10/01/17 00:30 Room Air 10/01/17 00:16 36.9 81 20 126/78 (94) 95 Room Air 09/30/17 20:15 Room Air 09/30/17 16:00 Room Air 09/30/17 14:27 37.5 79 16 126/78 (94) 95 Room Air Physical Exam General Appearance: WD/WN, no apparent distress Eyes: normal inspection, PERRL, EOMI Neck: supple, no JVD, trachea midline Respiratory/Chest: normal breath sounds, no respiratory distress, no accessory muscle use Cardiovascular: regular rate, rhythm, no gallop, no murmur Abdomen: normal bowel sounds, non tender, soft Extremities: normal inspection, no pedal edema, no calf tenderness Neurologic/Psych: alert, normal mood/affect, oriented x 3 Skin: normal color, no jaundice, no rash Laboratory Results Last 24 Hours Test 10/01/17 06:49 White Blood Count 15.68 K/uL Red Blood Count 4.06 M/uL Hemoglobin 12.5 g/dL Hematocrit 37.1 % Mean Corpuscular Volume 91.4 fL Mean Corpuscular Hemoglobin 30.8 pg Mean Corpuscular Hemoglobin Concent 33.7 g/dl Platelet Count 218 K/uL Mean Platelet Volume 8.8 fL Neutrophils (%) (Auto) 66.9 % Lymphocytes (%) (Auto) 14.3 % Monocytes (%) (Auto) 16.3 % Eosinophils (%) (Auto) 2.0 % Basophils (%) (Auto) 0.1 % Neutrophils # (Auto) 10.48 K/uL Lymphocytes # (Auto) 2.24 K/uL Monocytes # (Auto) 2.56 K/uL Eosinophils # (Auto) 0.32 K/uL Basophils # (Auto) 0.02 K/uL RDW Standard Deviation 43.9 fL RDW Coefficient of Variation 13.0 % Immature Granulocyte % (Auto) 0.4 % Immature Granulocyte # (Auto) 0.06 K/uL Sodium Level 137 mmol/L Potassium Level 3.5 mmol/L Chloride Level 106 mmol/L Carbon Dioxide Level 26 mmol/L Anion Gap 5.0 mmol/L Blood Urea Nitrogen 9 mg/dl Creatinine 0.81 mg/dl Est Creatinine Clear Calc Drug Dose 115.7 ml/min Estimated GFR () 116.0 Estimated GFR (Non- 100.1 BUN/Creatinine Ratio 11.5 Random Glucose 91 mg/dl Calcium Level 8.1 mg/dl Total Bilirubin 0.9 mg/dl Direct Bilirubin 0.2 mg/dl Aspartate Amino Transf (AST/SGOT) 16 U/L Alanine Aminotransferase (ALT/SGPT) 18 U/L Alkaline Phosphatase 63 U/L Total Protein 6.5 gm/dl Albumin 2.6 gm/dl Globulin 3.9 gm/dl Albumin/Globulin Ratio 0.7 Triglycerides Level 52 mg/dl Cholesterol Level 81 mg/dl HDL Cholesterol 36 mg/dl LDL Cholesterol, Calculated 35 mg/dl VLDL Cholesterol, Calculated 10 mg/dl Cholesterol/HDL Ratio 2.3 Lipase 182 U/L Assessment and Plan Patient is a 57 year old male w mild fever, abd pain, n/v symptoms, upon evaluation found to have leukocytosis, elevated lipase, normal LFTs, abd imaging w u/s, CT consistent acute pancreatitis w/o necrosis, fluid collection. This is his second pancreatitis episode this year, last one in July. He has hx of celiac disease diagnosed in 2017, gained 40 lbs since then, admits to eating fatty foods. Previously had u/s which showed possible gallbladder sludge and been scheduled to have EGD/EUS eval on 10/08/17. Most recent imaging showed normal gallbladder w/o stones/sludge and CBD was 2mm. He denies any ETOH, illicit drugs, tobacco. He feels better, no n/v, increased abd pain w CL diet. Afebrile overnight w WBC down to 15K from 23K Plans - Reduce LR to 75ml/hr - FL diet; advance to low fat, gluten free diet once tolerating FL - Start antibx given increasing WBC and mild fever though the leukocytosis may also be partly reactive response to inflammation. Will give Imipenem IV -> may DC by end of day - Check fasting lipid profile in AM labs -TG 52 - MRCP today to r/o pancreas divisum -> no definite divisum noted, but sidebranch 7mm IPMN on pancreas body noted. - Need eventual EUS eval but will postpone date to 4-6 weeks after this episode of pancreatitis. Will also plan for outpt workup for autoimmune pancreatitis markers I saw and evaluated the patient. He does appear to be much improved this afternoon. Would suggest advancing his diet as tolerated and perhaps discharge on if he is still improving. We are planning to do an outpatient endoscopic ultrasound in the next 4-6 weeks.
[2017-10-01 15:57] VITALS: BP 142/89; PULSE 70; TEMP 36.7; O2SAT 99
[2017-10-01 23:10] VITALS: BP 126/80; PULSE 82; TEMP 37.1; O2SAT 96
[2017-10-01] MEDS: POLYETHYLENE (MIRALAX) 17 GM PACK PO PRN (23:53)
[2017-10-02 07:07] VITALS: BP 117/77; PULSE 65; TEMP 36.8; O2SAT 97
[2017-10-02 07:34] LABS: BASO % 0.2 %; BASO ABS # 0.02 K/uL (0-0.2); EOS % 5.4 %; EOS ABS # 0.56 K/uL (0-0.5); HEMATOCRIT 36.1 % (42-52); HEMOGLOBIN 12.4 g/dL (14.0-18.0); IG# 0.03 K/uL (0.00-0.02); LYMPH % 19.8 %; LYMPH ABS # 2.04 K/uL (1.2-3.4); MEAN CORPUSCULAR HEMOGLOBIN 30.9 pg (25-34); MEAN CORPUSCULAR HGB CONC 34.3 g/dl (32-36); MEAN PLATELET VOLUME 9.4 fL (7.4-10.4); MONO % 14.9 %; MONO ABS # 1.54 K/uL (0.11-0.59); NEUT % 59.4 %; NEUT ABS # 6.13 K/uL (1.4-6.5); PLATELET COUNT 265 K/uL (130-400); RED CELL DISTRIBUTION WIDTH CV 12.9 % (11.5-14.5); RED CELL DISTRIBUTION WIDTH SD 42.5 fL (36.4-46.3); WHITE BLOOD COUNT 10.32 K/uL (4.8-10.8)
[2017-10-02] MEDS: POLYETHYLENE (MIRALAX) 17 GM PACK PO PRN (08:13)
[2017-10-02] MEDS: DOCUSATE SODIUM 100 MG CAP PO SCH (08:13)
[2017-10-02 08:15] LABS: ALBUMIN 2.5 gm/dl (3.4-5.0); CALCIUM 8.1 mg/dl (8.5-10.1); CREATININE 0.74 mg/dl (0.60-1.40); POTASSIUM 3.5 mmol/L (3.5-5.1)
[2017-10-02 08:16] LABS: TOTAL PROTEIN 6.5 gm/dl (6.4-8.2)
--- NOTE | 2017-10-02 08:46 | Gastroenterology Progress Note ---
Progress Note Date of Service: October 02, 2017 Subjective Pt evaluation today including: conversation w/ patient, physical exam, chart review, lab review, review of inpatient medication list Pt tolerating regular diet w/o increased abd pain, n/v. Some constipation. Lipase normalized Review of Systems Constitutional: No fever, No chills Respiratory: No cough Cardiac: No chest pain Abdomen: + constipation, No pain, No nausea, No vomiting Medications Current Inpatient Medications Medications (Trade) Dose Ordered Sig/Luz Elena Route Start Time Stop Time Status Last Admin Dose Admin Ioversol (Optiray 320) 125 ml UD PRN IV 09/29/17 16:45 10/03/17 16:44 Lactated Ringer's 1,000 ml @ 75 mls/hr [id number] IV 09/29/17 18:30 10/29/17 18:29 10/01/17 23:23 75 MLS/HR Polyethylene (Miralax Powder Packet) 17 gm DAILY PRN PO 09/29/17 17:30 10/29/17 17:29 10/02/17 08:13 17 GM Docusate Sodium (coLACE CAP) 100 mg BID PO 09/29/17 20:00 10/29/17 20:59 10/02/17 08:13 100 MG Ondansetron HCl (Zofran Inj) 4 mg Q4H PRN IV 09/29/17 17:30 10/29/17 17:29 09/29/17 20:06 4 MG Morphine Sulfate (MoRPHine SULFATE INJ) 4 mg Q3H PRN IV 09/29/17 17:30 10/13/17 17:29 09/30/17 23:23 4 MG Ketorolac Tromethamine (Toradol Inj) 30 mg Q6H PRN IV 09/29/17 17:45 10/04/17 17:44 10/01/17 23:57 30 MG Ondansetron HCl (Zofran Inj) 4 mg Q6H PRN IV 09/29/17 18:00 10/29/17 17:59 Acetaminophen (Tylenol Tab) 650 mg Q4H PRN PO 09/30/17 00:00 10/30/17 00:00 09/30/17 16:15 650 MG Objective Vital Signs Date Time Temp Pulse Resp B/P (MAP) Pulse Ox O2 Delivery O2 Flow Rate FiO2 10/02/17 07:07 36.8 65 18 117/77 (90) 97 Room Air 10/02/17 00:00 Room Air 10/01/17 23:10 37.1 82 16 126/80 (95) 96 Room Air 10/01/17 16:00 Room Air 10/01/17 15:57 36.7 70 18 142/89 (106) 99 Room Air Physical Exam General Appearance: WD/WN, no apparent distress Eyes: normal inspection, PERRL, EOMI Neck: supple, no JVD, trachea midline Respiratory/Chest: normal breath sounds, no respiratory distress, no accessory muscle use Cardiovascular: regular rate, rhythm, no gallop, no murmur Abdomen: normal bowel sounds, non tender, soft Extremities: normal inspection, no pedal edema, no calf tenderness Neurologic/Psych: alert, normal mood/affect, oriented x 3 Skin: normal color, no jaundice, warm/dry, no rash Laboratory Results Last 24 Hours Test 10/02/17 06:56 White Blood Count 10.32 K/uL Red Blood Count 4.01 M/uL Hemoglobin 12.4 g/dL Hematocrit 36.1 % Mean Corpuscular Volume 90.0 fL Mean Corpuscular Hemoglobin 30.9 pg Mean Corpuscular Hemoglobin Concent 34.3 g/dl Platelet Count 265 K/uL Mean Platelet Volume 9.4 fL Neutrophils (%) (Auto) 59.4 % Lymphocytes (%) (Auto) 19.8 % Monocytes (%) (Auto) 14.9 % Eosinophils (%) (Auto) 5.4 % Basophils (%) (Auto) 0.2 % Neutrophils # (Auto) 6.13 K/uL Lymphocytes # (Auto) 2.04 K/uL Monocytes # (Auto) 1.54 K/uL Eosinophils # (Auto) 0.56 K/uL Basophils # (Auto) 0.02 K/uL RDW Standard Deviation 42.5 fL RDW Coefficient of Variation 12.9 % Immature Granulocyte % (Auto) 0.3 % Immature Granulocyte # (Auto) 0.03 K/uL Sodium Level 139 mmol/L Potassium Level 3.5 mmol/L Chloride Level 110 mmol/L Carbon Dioxide Level 24 mmol/L Anion Gap 5.0 mmol/L Blood Urea Nitrogen 11 mg/dl Creatinine 0.74 mg/dl Est Creatinine Clear Calc Drug Dose 126.7 ml/min Estimated GFR () 120.4 Estimated GFR (Non- 103.8 BUN/Creatinine Ratio 15.5 Random Glucose 90 mg/dl Calcium Level 8.1 mg/dl Total Bilirubin 0.6 mg/dl Direct Bilirubin 0.2 mg/dl Aspartate Amino Transf (AST/SGOT) 16 U/L Alanine Aminotransferase (ALT/SGPT) 18 U/L Alkaline Phosphatase 65 U/L Total Protein 6.5 gm/dl Albumin 2.5 gm/dl Globulin 4.0 gm/dl Albumin/Globulin Ratio 0.6 Lipase 142 U/L Assessment and Plan Patient is a 57 year old male w mild fever, abd pain, n/v symptoms, upon evaluation found to have leukocytosis, elevated lipase, normal LFTs, abd imaging w u/s, CT consistent acute pancreatitis w/o necrosis, fluid collection. This is his second pancreatitis episode this year, last one in July. He has hx of celiac disease diagnosed in 2017, gained 40 lbs since then, admits to eating fatty foods. Previously had u/s which showed possible gallbladder sludge and been scheduled to have EGD/EUS eval on 10/08/17. Most recent imaging showed normal gallbladder w/o stones/sludge and CBD was 2mm. He denies any ETOH, illicit drugs, tobacco. He is doing well, tolerating regular diet, no abd pain, n/v, + some constipation. WBC and Lipase had normalized. Plans - Continue low fat, gluten free diet. - Check fasting lipid profile in AM labs -TG 52 - MRCP today to r/o pancreas divisum -> no definite divisum noted, but sidebranch 7mm IPMN on pancreas body noted. - Need eventual EUS eval but will postpone date to 4-6 weeks after this episode of pancreatitis. Will also plan for outpt workup for autoimmune pancreatitis markers (orders will be placed in [facility] for pt to get labs drawn next week). - OK from [place] from GI standpoint. I saw and evaluated the patient. He looks much improved today from his baseline on admission a few days ago. He is tolerating p.o. without any difficulty. His white blood cell count has now returned to normal. Recommendations Consider discharge today Patient to avoid alcohol and tobacco consumption Endoscopic ultrasound to be scheduled in 4-6 weeks Outpatient testing for autoimmune pancreatitis and genetic causes of pancreatitis to be scheduled
--- NOTE | 2017-10-02 11:39 | Progress Note ---
Medicine Progress Note Date & Time of Visit: October 02, 2017 at 11:33. Subjective seen resting in bed, comfortable in good spirits states he feels much better today abdominal pain has resolved no nausea (+) BM no chest pain, dyspnea, dizziness ambulating well no chills denies other symptoms states he is ready and would like to be discharged today Objective Last 8 Hrs Date Time Temp Pulse Resp B/P (MAP) Pulse Ox O2 Delivery O2 Flow Rate FiO2 10/02/17 08:00 Room Air 10/02/17 07:07 36.8 65 18 117/77 (90) 97 Room Air Physical Exam: General- oriented x 3, not in distress, speaks in sentences with no effort Eyes- anicteric Neck- no JVD Lungs- clear BS BL Heart- regular rhythm; no murmur, normal rate Abdomen- normal bowel sounds, non distended, soft , no tenderness Extremities- no pretibial edema, no calf tenderness Neuro- alert, oriented x 3; no gross focal deficits Skin- warm & dry Laboratory Results: Last 24 Hours Test 10/02/17 06:56 White Blood Count 10.32 K/uL Red Blood Count 4.01 M/uL Hemoglobin 12.4 g/dL Hematocrit 36.1 % Mean Corpuscular Volume 90.0 fL Mean Corpuscular Hemoglobin 30.9 pg Mean Corpuscular Hemoglobin Concent 34.3 g/dl Platelet Count 265 K/uL Mean Platelet Volume 9.4 fL Neutrophils (%) (Auto) 59.4 % Lymphocytes (%) (Auto) 19.8 % Monocytes (%) (Auto) 14.9 % Eosinophils (%) (Auto) 5.4 % Basophils (%) (Auto) 0.2 % Neutrophils # (Auto) 6.13 K/uL Lymphocytes # (Auto) 2.04 K/uL Monocytes # (Auto) 1.54 K/uL Eosinophils # (Auto) 0.56 K/uL Basophils # (Auto) 0.02 K/uL RDW Standard Deviation 42.5 fL RDW Coefficient of Variation 12.9 % Immature Granulocyte % (Auto) 0.3 % Immature Granulocyte # (Auto) 0.03 K/uL Sodium Level 139 mmol/L Potassium Level 3.5 mmol/L Chloride Level 110 mmol/L Carbon Dioxide Level 24 mmol/L Anion Gap 5.0 mmol/L Blood Urea Nitrogen 11 mg/dl Creatinine 0.74 mg/dl Est Creatinine Clear Calc Drug Dose 126.7 ml/min Estimated GFR () 120.4 Estimated GFR (Non- 103.8 BUN/Creatinine Ratio 15.5 Random Glucose 90 mg/dl Calcium Level 8.1 mg/dl Total Bilirubin 0.6 mg/dl Direct Bilirubin 0.2 mg/dl Aspartate Amino Transf (AST/SGOT) 16 U/L Alanine Aminotransferase (ALT/SGPT) 18 U/L Alkaline Phosphatase 65 U/L Total Protein 6.5 gm/dl Albumin 2.5 gm/dl Globulin 4.0 gm/dl Albumin/Globulin Ratio 0.6 Lipase 142 U/L Assessment & Plan Patient is a 57-year-old male with a PMH of celiac disea, hypothyroidism and h/ o pancreatitis who presents with diffuse abdominal pain 3 days and was found to have acute pancreatitis. ACUTE PANCREATITIS - recurrence, last episode July 2017 -Unknown etiology, possibly gallstones -CT abd pelvis with findings are consistent with acute pancreatitis. There is no evidence of pancreatic necrosis or pseudocyst formation Liver US: no gallbladder stone/sludge, CBD normal (sludge noted last month) - Pain resolved Afebrile now Lipase normalized - GI consulted MRCP ordered no signs of cholelithiasis TG level normal Imipenem started, discontinued LR decreased in rate diet advanced - cleared for discharge: low fat, gluten free diet ff up with GI as outpatient- bloodwork for autoimmune work up to be set up next week, Endoscopic Ultrasound in 4-6 weeks Hypothyroidism: -Levothyroxine Celiac disease: -Gluten free diet once able to tolerate food -Vit B12, folic acid supplementation Osteoporosis: -Calcium, Vit D DVT Ppx: SCDs for now Code status: FULL Dispo: d/c home ff up with PCP in 3-5 days ff up with GI as scheduled- outpatient Endoscopic US in 4-6 weeks Current Inpatient Medications: Current Inpatient Medications Medications (Trade) Dose Ordered Sig/Luz Elena Route Start Time Stop Time Status Last Admin Dose Admin Ioversol (Optiray 320) 125 ml UD PRN IV 09/29/17 16:45 10/03/17 16:44 Lactated Ringer's 1,000 ml @ 75 mls/hr [id number] IV 09/29/17 18:30 10/29/17 18:29 10/01/17 23:23 75 MLS/HR Polyethylene (Miralax Powder Packet) 17 gm DAILY PRN PO 09/29/17 17:30 10/29/17 17:29 10/02/17 08:13 17 GM Docusate Sodium (coLACE CAP) 100 mg BID PO 09/29/17 20:00 10/29/17 20:59 10/02/17 08:13 100 MG Ondansetron HCl (Zofran Inj) 4 mg Q4H PRN IV 09/29/17 17:30 10/29/17 17:29 09/29/17 20:06 4 MG Morphine Sulfate (MoRPHine SULFATE INJ) 4 mg Q3H PRN IV 09/29/17 17:30 10/13/17 17:29 09/30/17 23:23 4 MG Ketorolac Tromethamine (Toradol Inj) 30 mg Q6H PRN IV 09/29/17 17:45 10/04/17 17:44 10/01/17 23:57 30 MG Ondansetron HCl (Zofran Inj) 4 mg Q6H PRN IV 09/29/17 18:00 10/29/17 17:59 Acetaminophen (Tylenol Tab) 650 mg Q4H PRN PO 09/30/17 00:00 10/30/17 00:00 09/30/17 16:15 650 MG
--- NOTE | 2017-10-02 11:46 | Discharge Summary ---
Discharge Summary Date of Service October 02, 2017. Discharge Summary Admission Date: Sep 29, 2017 at 17:09 Discharge Date: October 02, 2017 Discharge Disposition: Home Principal Diagnosis: ACUTE PANCREATITIS Secondary Diagnoses/Problems: Please refer to hospital course below. Procedures: ULTRASOUND RIGHT UPPER QUADRANT ABDOMEN CLINICAL HISTORY: Upper abdominal pain. COMPARISON STUDY: Abdominal CT dated 08/22/2017. TECHNIQUE: Real-time, grayscale, and color flow sonography of the right upper quadrant of the abdomen was performed. Images are reviewed in the transverse and longitudinal planes. FINDINGS: Liver: The liver is normal in size and echotexture. There is no intrahepatic biliary ductal dilatation. The main portal vein is patent. Gallbladder: The gallbladder is normal in appearance. No gallstones are identified. There is no gallbladder wall thickening or pericholecystic fluid. A sonographic Umana's sign is reportedly absent. The common bile duct measures up to 0.2 cm in diameter. Pancreas: Not well visualized due to overlying bowel gas. Right kidney: Survey images of the right kidney demonstrate normal size and echotexture. There is no hydronephrosis. Ascites: None. IMPRESSION: 1. No acute sonographic abnormality is identified in the right upper quadrant. No gallstones are seen. 2. The pancreas was not visualized due to overlying bowel gas. Electronically signed by: Marvel Rizzo M.D. 09/29/2017 3:[address] SCAN OF THE ABDOMEN AND PELVIS WITH IV CONTRAST CLINICAL HISTORY: Generalized abdominal pain. Elevated lipase. COMPARISON STUDY: Abdominal CT dated 08/22/2017. TECHNIQUE: Following the IV administration of 95 cc of Optiray 320, CT scan of the abdomen and pelvis is performed from the lung bases to the proximal femora. Images are reviewed in the axial, sagittal, and coronal planes. IV contrast was administered without complication. A dose lowering technique was utilized adhering to the principles of ALARA. CT DOSE: 546.73 mGy.cm FINDINGS: Lung bases: The heart is normal in size and without pericardial effusion. There are coronary artery calcifications. A tiny hiatal hernia is identified. The lung bases are clear. Liver: The contrast-enhanced liver is normal in size, contour, and attenuation. There is no intrahepatic biliary ductal dilatation. The hepatic veins and portal veins are patent. Gallbladder: Unremarkable. Spleen: Normal in size and attenuation. Pancreas: There is mild to moderate glandular atrophy of the pancreas. There is peripancreatic inflammatory stranding and trace fluid, greatest in the pancreatic head. The appearance is consistent with acute pancreatitis. The pancreatic parenchyma enhances. No organized peripancreatic fluid collection is identified. The splenic vein is patent. Adrenal glands: Unremarkable. Kidneys: The contrast enhanced kidneys are normal in size and without hydronephrosis. The kidneys enhance symmetrically. There is a 4 mm nonobstructing left renal calculus. Abdominal vasculature: The abdominal aorta is normal in course and caliber noting scattered foci of atherosclerotic calcification. Bowel: The small bowel and colon are normal in course and caliber. The appendix is normal as visualized. Peritoneum: There is no intraperitoneal free air or abdominal ascites. Lymphadenopathy: None. Pelvic viscera: The bladder, prostate, and seminal vesicles are normal as visualized. There is evidence of previous bilateral inguinal herniorrhaphy. Skeletal structures: No lytic or blastic lesions are seen. IMPRESSION: 1. Findings are consistent with acute pancreatitis. 2. There is no evidence of pancreatic necrosis or pseudocyst formation. 3. Nonobstructing left renal calculus. 4. Additional findings as above. Electronically signed by: Marvel Rizzo M.D. 09/29/2017 5:03 PM MRCP CLINICAL HISTORY: Pancreatitis. Clinical concern for pancreas divisum. COMPARISON STUDY: Abdominal CT dated 09/29/2017. TECHNIQUE: Abdominal MRCP is performed utilizing various T2-weighted sequences in the axial and coronal planes. IV contrast was not administered for this examination. 3-D reformats are created and assessed. The examination is compromised by motion artifact. FINDINGS: The gallbladder is normal in appearance. No gallstones are identified. There is no intra or extrahepatic biliary ductal dilatation. The common bile duct measures up to 2 mm. There are no filling defects to suggest choledocholithiasis. The pancreatic duct is normal in caliber. There is no clear evidence of pancreas divisum. A 7 mm T2 hyperintense structure adjacent the pancreatic duct in the high-grade body seen on axial image #12 is typical in appearance for small sidebranch IPMN. The hepatic parenchyma is normal as imaged. The spleen, adrenal glands, and kidneys are grossly unremarkable. The pancreas is edematous and there is peripancreatic inflammation and fluid consistent with the known history of acute pancreatitis. There is no evidence of bowel obstruction. No abdominal adenopathy is identified. Trace pleural effusions are suggested. The abdominal aorta is normal in caliber. The visualized bony structures are normal in appearance. IMPRESSION: 1. No gallstones are identified. There is no intra or extrahepatic biliary ductal dilatation. 2. The pancreatic duct is normal in caliber. There is no convincing evidence of pancreas divisum on this motion degraded examination. 3. Findings are consistent with acute pancreatitis. 4. A 7 mm sidebranch IPMN is incidentally noted in the pancreatic body. Electronically signed by: Marvel Rizzo M.D. 09/30/2017 3:55 PM Consultations: GASTROENTEROLOGY, INFECTIOUS DISEASE Pending Studies/Follow-Up: Please refer to hospital course below. Medication Reconciliation Continued Medications: Calcium Carbonate-Vitamin D (Calcium + D3 600-200 mg-Unit) 1 Tab Tab 2 TABS PO DAILY Cyanocobalamin (Vitamin B-12) 6,000 Mcg Sub 1 TAB SL DAILY Ergocalciferol (Vitamin D 04179 Unit) 50,000 Unit Cap 57069 UNIT PO WK, CAP Takes every Friday Folic Acid (Folvite) 1 Mg Tab 1 MG PO DAILY, TAB Levothyroxine Sodium (Synthroid) 100 Mcg Tab 100 MCG PO DAILY, TAB Multiple Vitamins W/ Minerals (Centrum Silver Adult 50+) 1 Tab Tab 1 TAB PO DAILY Tadalafil (Cialis) 5 Mg Tab 5 MG PO DAILY, TAB Admission Information HPI (per Admitting provider): Patient is a 57-year-old male with a PMH of celiac disease, hypothyroidism and h /o pancreatitis who presents with diffuse abdominal pain 3 days. Patient experienced first bout of pancreatitis 6 years ago and again last month. Followed up in GI clinic a few weeks ago and has an EGD and EUS scheduled for next week. Etiology of pancreatitis is unclear however biliary sludge was seen in the gallbladder on previous imaging. Was offered referral to surgery to consider cholecystectomy but declined. This Friday, patient went out for dinner and had smoked chicken thighs. Started to experience central abdominal pain afterwards. Pain persisted yesterday but patient was able to tolerate a bland dinner of rice. Took a Percocet that was leftover from pancreatitis visit last month in ED, which controlled pain enough for patient to sleep overnight. Woke up and went to work today but experience constant nausea with 2 episodes of bilious vomit. brought him to ED this afternoon. Describes abdominal pain as 10/10 diffuse, burning pain with some radiation to his lower back. Pain improved to a 4/10 after receiving pain medication in the ED. Denies alcohol use. No fever, chills, lightheadedness, headache, visual changes , chest pain, SOB, dysuria, diarrhea or constipation. In ED, patient found to have a leukocytosis of 18.59. Lipase is elevated to [address] abdomen pelvis shows evidence of acute pancreatitis. Physical Exam (per Admitting): General Appearance: WD/WN, + mild distress Head: normocephalic, atraumatic Eyes: normal inspection, PERRL, sclerae normal ENT: normal ENT inspection, TMs normal, pharynx normal (Dry mucous membranes ) Neck: supple, thyroid normal, trachea midline Respiratory/Chest: chest non-tender, lungs clear, normal breath sounds, no respiratory distress, no accessory muscle use Cardiovascular: regular rate, rhythm, no murmur, normal peripheral pulses Abdomen/GI: normal bowel sounds, soft, no organomegaly, + tenderness ( Diffuse TTP, no guarding) Back: normal inspection, no CVA tenderness Extremities/Musculoskelatal: normal inspection, no calf tenderness, no pedal edema Neurologic/Psych: no motor/sensory deficits, alert, normal mood/affect, oriented x 3 Skin: normal color, warm/dry, no rash Hospital Course Patient is a 57-year-old male with a PMH of celiac disea, hypothyroidism and h/ o pancreatitis who presents with diffuse abdominal pain 3 days and was found to have acute pancreatitis. ACUTE PANCREATITIS - recurrence, last episode July 2017 -Unknown etiology, possibly gallstones -CT abd pelvis : acute pancreatitis. There is no evidence of pancreatic necrosis or pseudocyst formation Liver US: no gallbladder stone/sludge, CBD normal (sludge noted last month) MRCP ordered no signs of cholelithiasis - GI consulted given vigorous IV fluids patient was febrile x 1 day, Imipenem started, then discontinued diet advanced Pain resolved Fever resolved Lipase normalized - imaging studies negative for gallbladder stones or CBD stones/sludge - cleared for discharge by GI: low fat, gluten free diet ff up with GI as outpatient- bloodwork for autoimmune work up to be set up next week, Endoscopic Ultrasound in 4-6 weeks Hypothyroidism: -Levothyroxine Celiac disease: -Gluten free diet once able to tolerate food -Vit B12, folic acid supplementation Osteoporosis: -Calcium, Vit D DVT Ppx: SCDs for now Code status: FULL Dispo: d/c home ff up with PCP in 3-5 days ff up with GI as scheduled- outpatient Endoscopic US in 4-6 weeks Total time spent on discharge = 30 minutes This includes examination of the patient, discharge planning, medication reconciliation, and communication with other providers. Discharge Instructions Discharge Instructions Date of Service October 02, 2017. Admission Reason for Admission: Acute Pancreatitis Discharge Discharge Diagnosis / Problem: ACUTE PANCREATITIS Discharge Goals Goal(s): Diagnostic testing, Therapeutic intervention Activity Recommendations Activity Limitations: as noted below (NO HEAVY EXERTION UNTIL RE-EVALUATED BY PRIMARY CARE PHYSICIAN) Lifting Limitations: until after follow-up appointment Exercise/Sports Limitations: until after follow-up appointment . Instructions / Follow-Up Instructions / Follow-Up YOU MAY RESUME YOUR USUAL MEDICATIONS. MAINTAIN LOW FAT, GLUTEN FREE DIET. SMALL, FREQUENT MEALS. CALL PRIMARY CARE PHYSICIAN OR RETURN TO ER IMMEDIATELY IF WITH RECURRENCE OF SYMPTOMS. FOLLOW UP WITH DR. MONROE ON Friday10/06/17 AT 12:45AM. FOLLOW UP WITH DEVELOPMENT GEOLOGIST SCHEDULED. Current Hospital Diet Patient's current hospital diet: Gluten Free Diet, Low Fat Diet Discharge Diet Recommended Diet: Low Fat Diet, Gluten Free Diet Procedures Procedures Performed: CT SCAN OF THE ABDOMEN, MRCP, PANCREATIC ULTRASOUND Pending Studies Studies pending at discharge: yes List of pending studies: BLOOD WORK C/O DEVELOPMENT GEOLOGIST Laboratory Results Lipid Panel Test 10/01/17 06:49 Range/Units Triglycerides Level 52 0-150 mg/dl Cholesterol Level 81 0-200 mg/dl HDL Cholesterol 36 mg/dl Cholesterol/HDL Ratio 2.3 LDL Cholesterol, Calculated 35 mg/dl Medical Emergencies . Who to Call and When: Medical Emergencies: If at any time you feel your situation is an emergency, please call 911 immediately. . Non-Emergent Contact Non-Emergency issues call your: Primary Care Provider, Cell Geneticist Call Non-Emergent contact if: you have a fever, your pain is not controlled, your pain is worsening, you have any medication questions . . "Provider Documentation" section prepared by Galileo Jean. .
[2017-10-02 12:22] VITALS: BP 117/77; PULSE 65; TEMP 36.8; O2SAT 97
== END 2017-10-02 12:56 | disposition home or self-care (01) | DRG 440 ==
LOC: C.EDB 13:35 → C.MS4W 17:09 → ENRESERV 17:30
PROVIDERS: ADMIT Internal Medicine; ATTEND Internal Medicine
DX: K85.90 Acute pancreatitis without necrosis or infection, unspecified (principal); K90.0 Celiac disease; E03.9 Hypothyroidism, unspecified; N52.9 Male erectile dysfunction, unspecified; M81.0 Age-related osteoporosis without current pathological fracture; K86.1 Other chronic pancreatitis; K80.20 Calculus of gallbladder without cholecystitis without obstruction

== ENCOUNTER 2019-12-10 08:59 | Observation (INO) ==
--- OUTSIDE RECORDS SUMMARY | 2019-12-10 09:02 | External Medical Summary | Continuity of Care Document ---
:1960 Author Name Jorge Starks, Provider Address Unavailable Unavailable , Care Team Providers Name Role Phone [email or web address] [email or web address] PCP, NO Unavailable Unavailable Problems Active medical history not documented Allergies and Adverse Reactions Allergy history not documented Medications Medications not documented Procedures Procedures not documented Immunizations Immunizations not documented Plan of Treatment Planned Observations Planned Goals not documented Results No Known Results Results not documented
--- OUTSIDE RECORDS SUMMARY | 2019-12-10 09:02 | External Medical Summary | Continuity of Care Document ---
:1960 Author Name Jorge Starks, Provider Address Unavailable Unavailable , Care Team Providers Name Role Phone [email or web address] [email or web address] PCP, NO Unavailable Unavailable Problems Active medical history not documented Allergies and Adverse Reactions Allergy history not documented Medications Medications not documented Procedures Procedures not documented Immunizations Immunizations not documented Plan of Treatment Planned Observations Planned Goals not documented Results No Known Results Results not documented
--- NOTE | 2019-12-10 09:36 | Emergency Department Note ---
ED Visit Note This patient was seen in concert with Dr. Shine. We discussed and agreed upon the history, physical, assessment and plan. . Resident Activity Tracking Resident Involvement: Resident Care Provided Care Provided: Adult ED
[2019-12-10] MEDS ORDERED: KETOROLAC TROMETHAMINE 15 MG/ML VIAL IV STA (09:53)
[2019-12-10 10:59] LABS: Hematocrit (blood only) 45.8 % (42-52); Hemoglobin 15.8 g/dL (14.0-18.0); Mean Corpuscular Hemoglobin 31.8 pg (25-34); Mean Corpuscular Hgb Conc 34.5 g/dL (32-36); Mean Corpuscular Volume 92.2 fL (80-100); Mean Platelet Volume 9.6 fL (7.4-10.4); Platelet Count 288 K/uL (130-400); RDW Coefficient of Variation 13.1 % (11.5-14.5); RDW Standard Deviation 44.1 fL (36.4-46.3); Red Blood Count 4.97 M/uL (4.7-6.1); White Blood Count 22.85 K/uL (4.8-10.8)
[2019-12-10] MEDS ORDERED: SODIUM CHLORIDE 0.9% 1000ML 1,000 ML IV ONE (11:06)
[2019-12-10 11:11] LABS: Appearance Urine Clear (Clear); Bacteria Urine Automated Negative (Negative); Bilirubin Urine Negative (Negative); Blood Urine 2+ (Negative); Color Urine Yellow; Epithelial Cell Urine Auto 0-5 /lpf (0-5); Glucose Urine UA Negative (Negative); Ketones Urine Negative (Negative); Leukocyte Esterase Urine Negative (Negative); Nitrite Urine Negative (Negative); Protein Urine Negative (Negative); Specific Gravity Urine 1.022 (1.000-1.030); Urobilinogen Urine Negative (Negative); pH Urine 5.5 (4.5-7.5)
[2019-12-10 11:17] LABS: BUN Creatinine Ratio 13.4 (10-20); Calcium 9.9 mg/dl (8.5-10.1); Creatinine Clr Calc Pharmacy 102.2 ml/min; Est GFR (Non-African American) 93.2
[2019-12-10 11:20] LABS: Albumin Globulin Ratio 0.8 (0.9-2); Bilirubin,Total 0.8 mg/dl (0.2-1); Globulin 4.9 gm/dl (2.5-4.0); Total Protein 8.9 gm/dl (6.4-8.2)
[2019-12-10 11:40] LABS: Basophils # (auto) 0.03 K/uL (0-0.2); Basophils % (auto) 0.1 %; Eosinophils # (auto) 0.23 K/uL (0-0.5); Immature Granulocytes # (auto) 0.08 K/uL (0.00-0.02); Immature Granulocytes % (auto) 0.4 %; Lymphocytes # (auto) 2.23 K/uL (1.2-3.4); Lymphocytes % (auto) 9.8 %; Monocytes # (auto) 3.84 K/uL (0.11-0.59); Monocytes % (auto) 16.8 %; Neutrophils # (auto) 16.44 K/uL (1.4-6.5); Neutrophils % (auto) 71.9 %
[2019-12-10] MEDS ORDERED: IOVERSOL 100ml IV PRN (12:12)
--- NOTE | 2019-12-10 12:29 | CT Scan Report ---
CT abd pelvis IV con only CT DOSE: 904.79 mGycm HISTORY: epigastric and lower abdominal pain TECHNIQUE: Multiaxial CT images of the abdomen and pelvis were performed following the use of intrave nous contrast. A dose lowering technique was utilized adhering to the principles of ALARA. COMPARISON STUDY: 02/16/2018 FINDINGS: The lung bases are clear. The liver and spleen appear unremarkable. Kidneys enhance uniformly. No evidence for hydronephrosis. Edematous change and peripancreatic infiltrative change of the pancreatic uncinate process. Moderate peripancreatic infiltrative change with no evidence for abscess or collection. Mild reactive wall edematous change of the third portion of the duodenal sweep. No evidence for abscess collection or pseudocyst formation. Prior cholecystectomy. Mild reactive small bowel ileus. Stable postoperative changes in the anterior abdominal wall within the pelvis. Bladder is midline. No significant free fluid within the pelvic cul-de-sac. Small fat-containing periumbilical hernia. This is nonbowel containing and nonobstructive. IMPRESSION: 1. Acute pancreatitis primarily of the pancreatic uncinate region. 2. Moderate peripancreatic infiltrative change with no evidence for abscess collection or obstruction . 3. Mild reactive small bowel ileus. ACT 112: Negative or not required by law. The above report was generated using voice recognition software. It may contain grammatical, syntax or spelling errors. Electronically signed by: Gavin Nayak M.D. 12/10/2019 12:28 PM
[2019-12-10] MEDS ORDERED: ACETAMINOPHEN 1,000 MG/100 ML VIAL IV STA (14:13)
[2019-12-10] MEDS ORDERED: CONSULT PHARMACY STA (14:45)
--- NOTE | 2019-12-10 15:11 | History & Physical Report ---
Date of Service December 10, 2019 Assessment & Plan (1) Abdominal pain: (2) Acute pancreatitis: Pt is 59 y/o M with PMH celiac, hypothyroidism, h/o gallstone pancreatitis s/p cholecystectomy in 2018 presented to ER with complaint of abdominal pain x3 days. Denies fever/chills, N/V/D, ETOH use, med changes. In ER afebrile, P: 94, R: 18, BP: 127/86, 98% on RA. WBC: 22, lipase: 182, Normal LFTs CT ABD/PELVIS: 1. Acute pancreatitis primarily of the pancreatic uncinate region. 2. Moderate peripancreatic infiltrative change with no evidence for abscess collection or obstruction. 3. Mild reactive small bowel ileus. -In ER given 1L NSS, IV Tylenol, IV Toradol -If would develop diarrhea plan for stool studies -NPO -LR -CBC, CMP, lipase in AM -May need to consider celiac labs -GI consult (3) Celiac disease: Has been avoiding gluten -Plan for gluten free diet when resume diet (4) Hypothyroidism: -Continue levothyroxine DVT Prophylaxis -SCDs Full Code Follows with Dr Muller for routine care Pt was seen and care coordinated with Dr Traylor. See addendum History of Present Illness Chief Complaint: Abdominal Pain Primary Care Provider: Aram Muller MD pt is 59 y/o M with PMH celiac, hypothyroidism, h/o gallstone pancreatitis s/p cholecystectomy in 2018 presented to ER with complaint of abdominal pain x3 days. Patient states 3 days ago started with lower abdominal aching the following day abdomen seemed more distended was having discomfort mid to lower abdomen with radiation around to bilateral flanks. Today abdominal aching seems to be more lower abdomen. Denies any nausea, vomiting. Last BM yesterday was hard stool. Patient states ate rice yesterday and tried eggs for dinner but did not tolerate and aggravated abdominal pain. Denies any noted fever or chills. Reports has been avoiding gluten. Denies SORIANO, dizziness, syncope, vision changes, neck pain, CP, SOB, orthopnea, palpitations, cough, sore throat, choking, otalgia, rhinorrhea, paresthesias, weakness, extremity weakness, extremity edema, rashes, urinary symptoms. Allergies Allergy/AdvReac Type Severity Reaction Status Date / Time gluten AdvReac Gastrointestinal Verified 12/10/19 10:31 Upset Home Medications Home Medications Medication Instructions Recorded Confirmed Type cyanocobalamin (vitamin B-12) 1,000 mcg SUBLINGUAL DAILY 02/16/18 12/10/19 History ergocalciferol (vitamin D2) 50,000 unit PO WK 02/16/18 12/10/19 History folic acid 1 mg PO DAILY 02/16/18 12/10/19 History levothyroxine 100 mcg PO DAILY 02/16/18 12/10/19 History multivitamin with minerals 1 tab PO DAILY 02/16/18 12/10/19 History [Multiple Vitamin-Minerals] omeprazole 20 mg PO DAILY 02/16/18 12/10/19 History tadalafil [Cialis] 5 mg PO DAILY 02/16/18 12/10/19 History Past Med/Surg History Medical History Acute pancreatitis (Acute) BPH (benign prostatic hyperplasia) Celiac disease (Chronic) Hypothyroidism (Chronic) Impotence of organic origin (Chronic) Osteoporosis (Chronic) Pancreatitis Surgical History History of cholecystectomy Family History Other Cancer Hypertension Social History Preferred Language: Cypriot Communication Ability: Effective Visual Impairment: No Limitations Hearing Ability: Normal 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 Beliefs That Will Affect Care: None Current Living Situation: Significant Other Feels Safe at Home: Yes Safety Concerns: Feels Safe At This Time Smoking Status: Never smoker Hx Alcohol Use: No Hx Substance Use: No Review of Systems Review of Systems: All systems reviewed & are unremarkable except as noted in HPI & below Physical Exam Physical Exam: General: no distress, WDWN Head: normocephalic, atraumatic Eyes: PERRL, EOM's intact, conjunctiva non-injected, anicteric ENT: normal inspection external ears, nose, mucous membranes moist Neck: supple, trachea midline, non-tender Lungs: clear, no respiratory distress, no wheezing/rhonchi/rales CV: RRR, no murmur, no pretibial edema Abd: normal BS, soft, non-tender to palpation at this time Ext: no cyanosis, no calf tenderness Neuro: A&O x 3, no focal deficits noted, normal affect Skin: warm, dry Results & Data Results & Data ([facility]) Vital Signs (Past 12 Hours) Vital Signs Temp Pulse Pulse Resp BP BP Pulse Ox 12/10/19 13:00 73 18 121/89 97 12/10/19 11:00 71 18 121/89 97 12/10/19 09:22 37.0 C 94 H 18 127/86 98 Laboratory Results Short CBC 12/10/19 Range/Units 10:45 WBC 22.85 H (4.8-10.8) K/uL Hgb 15.8 (14.0-18.0) g/dL Hct 45.8 (42-52) % Plt Count 288 (130-400) K/uL BMP 12/10/19 10:45 Sodium 137 Potassium 4.0 Chloride 104 Carbon Dioxide 27 BUN 12 Creatinine 0.91 Glucose 102 H Calcium 9.9 Liver Function 12/10/19 Range/Units 10:45 Total Bilirubin 0.8 (0.2-1) mg/dl AST 17 (15-37) U/L ALT 24 (12-78) U/L Alkaline Phosphatase 75 (45-117) U/L Albumin 4.0 (3.4-5.0) gm/dl Urine 12/10/19 Range/Units 10:45 Urine Color Yellow Urine Appearance Clear (Clear) Urine pH 5.5 (4.5-7.5) Ur Specific [place] 1.022 (1.000-1.030) Urine Protein Negative (Negative) Urine Glucose (UA) Negative (Negative) Diagnostic Findings CT ABD/PELVIS: IMPRESSION: 1. Acute pancreatitis primarily of the pancreatic uncinate region. 2. Moderate peripancreatic infiltrative change with no evidence for abscess collection or obstruction. 3. Mild reactive small bowel ileus. Code Status & VTE Plan VTE Prophylaxis Plan VTE Prophylaxis will be ordered: Yes Supervising Physician Co-Signing Physician Notes Patient was seen and examined by me, care coordinated with Yanique Jaime PA-C. Please see her note above for further details. Mr. Berry is a 59-year-old male, with history of celiac disease, hypothyroidism, osteoporosis, and impotence, history of gallstone pancreatitis/ hx of recurrent pancreatitis, status post cholecystectomy in 2018 who presents with abdominal pain. Patient also denies any alcohol use in the past several years. Patient states abdominal pain is diffuse but mostly in the lower abdominal quadrants, denies any nausea or vomiting, or diarrhea. States that he had normal stool yesterday. Also denies any blood in the stool. The pain feels achy. He did eat rice yesterday and then eggs that he reports did not go well last evening. CT scan in ED significant for acute pancreatitis, white blood cell count elevated at 22,000, mild reactive small bowel ileus, no abscess collection noted on CT. Currently lipase is not elevated. And LFTs are unremarkable. Patient received 1 L of normal saline in the ED, Toradol for pain and IV Tylen ol. Will obtain lactic acid and cultures given significantly elevated white blood cell count. We will start IV lactated Ringer's, and Zosyn. We will continue to closely monitor CMP/lipase. GI consulted for recurrent pancreatitis, recommend to obtain MRCP and repeat IgG4. Benedicto Traylor MD (1) Acute pancreatitis Acute pancreatitis complication: unspecified Pancreatitis type: unspecified pancreatitis type Qualified Code(s): K85.90 - Acute pancreatitis without necrosis or infection, unspecified
[2019-12-10] MEDS ORDERED: MoRPHine SULFATE 2 MG/ML CARP IV PRN (15:36)
[2019-12-10] MEDS ORDERED: ONDANSETRON INJ 2 MG/ML 2 ML VIAL IV PRN (15:36)
[2019-12-10] MEDS ORDERED: ACETAMINOPHEN 1000 MG/100 ML IV IV PRN (15:36)
--- NOTE | 2019-12-10 16:00 | Gastrointestinal Consultation ---
Date of Consultation December 10, 2019 Supervising Physician Co-Signing Physician Notes 59 yo male with a history of prior lap beatrice, celiac disease, with recurrent pancreatitis. Admitted now with abd pain and ct evidence of pancreatitis, normal lft's and lipase. Pain improving. Benign abdominal exam and anicteric. Would get an MRCP to rule out retained stone. Repeat IgG4 subclasses as he may have AIP. IV LR for now, keep npo until MRCP is done. If MRPC is negative and pain improved, can try sips of liquids. History of Present Illness Reason for Consultation: acute pancreatitis Attending Physician: Shayan Traylor MD History of Present Illness This is a 59 y/o male known to GI for h/o Celiac disease, recurrent pancreatitis s/p lap beatrice 2018, and others below, admitted with acute pancreatitis after having abd pain x several days. On admission, WBC 22k noted, lipase was WNL, though CTAP noted findings c/w acute pancreatitis. LFTs, tbili, renal fxn WNL. Prior outpatient records reviewed showing elevated IgG4 at 214 in 2018 per epic recods. He denies any etoh use, no herbal supplements, no use of any other drugs, no recent bites. Pain is improved since admission. Recieved IV fluids in the ER. With his girlfriend at bedside. Allergies Allergy/AdvReac Type Severity Reaction Status Date / Time gluten AdvReac Gastrointestinal Verified 12/10/19 10:31 Upset Home Medications Home Medications Medication Instructions Recorded Confirmed Type cyanocobalamin (vitamin B-12) 1,000 mcg SUBLINGUAL DAILY 02/16/18 12/10/19 History ergocalciferol (vitamin D2) 50,000 unit PO WK 02/16/18 12/10/19 History folic acid 1 mg PO DAILY 02/16/18 12/10/19 History levothyroxine 100 mcg PO DAILY 02/16/18 12/10/19 History multivitamin with minerals 1 tab PO DAILY 02/16/18 12/10/19 History [Multiple Vitamin-Minerals] omeprazole 20 mg PO DAILY 02/16/18 12/10/19 History tadalafil [Cialis] 5 mg PO DAILY 02/16/18 12/10/19 History Patient History Medical History (Updated 12/10/19 @ 15:23 by Yanique Schreckengost, PA-C) Acute pancreatitis (Acute) Celiac disease (Chronic) Hypothyroidism (Chronic) Impotence of organic origin (Chronic) Osteoporosis (Chronic) Pancreatitis Family History (Updated 02/16/18 @ 02:11 by Luca Iraehta) Other No significant family history Social History (Updated 02/16/18 @ 02:22 by Luca Iraheta) Preferred Language: Fijian Communication Ability: Effective Visual Impairment: No Limitations Hearing Ability: Normal 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 Beliefs That Will Affect Care: None Current Living Situation: Significant Other Feels Safe at Home: Yes Safety Concerns: Feels Safe At This Time Smoking Status: Never smoker Hx Alcohol Use: No Hx Substance Use: No Review of Systems Review of Systems: All systems reviewed & are unremarkable except as noted in HPI & below Physical Exam Physical Exam: Well nourished white male in nad Constitutional: WD/WN, vitals as above well developed and well nourished; no acute distress Eyes: PERRL, conjunctivae normal, anicteric sclerae Chest (Breasts): Additional Comments: Normal excursion of chest Gastrointestinal (Abdomen): normal bowel sounds, soft, nontender, no hepatosplenomegaly Skin: no rashes, warm and dry Results & Data ([facility]) Vital Signs (Past 12 Hours) Vital Signs Temp Pulse Pulse Resp BP BP Pulse Ox 12/10/19 13:00 73 18 121/89 97 12/10/19 11:00 71 18 121/89 97 12/10/19 09:22 37.0 C 94 H 18 127/86 98 Diagnostic Findings [facility], [place] [phone] CT Scan Report Patient: BALTA PALOMINO EAdmit Date: 12/10/19 MR#: [id number]: [address] [facility] Acct ID:[id number]: Date: [address] [place] [address] Zip: [place] [address] Age: 59Location: ED Sex: M Room/Bed: Att Phy:Diagnosis: ABD PAIN Jennifer Phy: Aram Muller MDServruth ann Date: 12/10/19 Fam Phy:Interpreting Phy: Gavin Nayak MD Admit Phy: Ordering Phy: Ophelia Denny MD cc: ~ CT abd pelvis IV con only CT DOSE: 904.79 mGycm HISTORY: epigastric and lower abdominal pain TECHNIQUE: Multiaxial CT images of the abdomen and pelvis were performed following the use of intravenous contrast. A dose lowering technique was utilized adhering to the principles of ALARA. COMPARISON STUDY: 02/16/2018 FINDINGS: The lung bases are clear. The liver and spleen appear unremarkable. Kidneys enhance uniformly. No evidence for hydronephrosis. Edematous change and peripancreatic infiltrative change of the pancreatic uncina te process. Moderate peripancreatic infiltrative change with no evidence for abscess or collection. Mild reactive wall edematous change of the third portion of the duodenal sweep. No evidence for abscess collection or pseudocyst formation. Prior cholecystectomy. Mild reactive small bowel ileus. Stable postoperative changes in the anterior abdominal wall within the pelvis. Bladder is midline. No significant free fluid within the pelvic cul-de-sac. Small fat-containing periumbilical hernia. This is nonbowel containing and nonobstructive. IMPRESSION: 1. Acute pancreatitis primarily of the pancreatic uncinate region. 2. Moderate peripancreatic infiltrative change with no evidence for abscess collection or obstruction.
[2019-12-10] MEDS: LACTATED RINGER'S 1,000 ML IV SCH ×2 (16:04→21:49)
--- NOTE | 2019-12-10 16:52 | Magnetic Resonance Report ---
MR MRCP CLINICAL HISTORY: pancreatitis COMPARISON STUDY: CT scan dated 12/10/2019 FINDINGS: A breath-hold MRCP was performed. Images were performed in the coronal and axial planes. MIP images w ere acquired. The gallbladder is surgically absent. There is no evidence of intra or extrahepatic biliary ductal dilatation. The common bile duct measure s 2 mm. There are no filling defects to indicate calculi. There is no pancreatic ductal dilatation. There is pancreatic head edema with edema identified within the peripancreatic fat. There is mild secondary edema involving the adjacent duodenum. The findings are indicative of acute pancreatitis. There are no well-defined peripancreatic fluid collections. IMPRESSION: 1. MRI findings consistent with acute pancreatitis with secondary adjacent duodenal wall edema 2. No evidence of biliary or pancreatic ductal dilatation 3. No calculi identified 4. Surgically absent gallbladder ACT 112: Negative or not required by law. Electronically signed by: Hair Rodas M.D. 12/10/2019 4:51 PM
[2019-12-10] MEDS: KETOROLAC TROMETHAMINE 15 MG/ML VIAL IV PRN ×2 (17:05→23:49)
[2019-12-10] MEDS ORDERED: PIPERACILLIN/TAZOBACTAM 3.375 GM in DEXTROSE 5% 100 ML IV STA (20:35)
[2019-12-10] MEDS ORDERED: PIPERACILL/TAZOBAC CONSULT ACTIVE PRN (20:36)
[2019-12-11] MEDS: PIPERACILLIN/TAZOBACTAM 3.375 GM in DEXTROSE 5% 100 ML IV SCH ×3 (02:24→17:48)
[2019-12-11] MEDS: LACTATED RINGER'S 1,000 ML IV SCH ×4 (03:45→18:07)
[2019-12-11] MEDS: KETOROLAC TROMETHAMINE 15 MG/ML VIAL IV PRN (05:59)
[2019-12-11] MEDS: LEVOTHYROXINE SODIUM 100 MCG TABLET PO SCH (06:01)
[2019-12-11 09:56] LABS: Basophils # (auto) 0.03 K/uL (0-0.2); Basophils % (auto) 0.3 %; Eosinophils % (auto) 4.2 %; Hematocrit (blood only) 38.2 % (42-52); Immature Granulocytes # (auto) 0.03 K/uL (0.00-0.02); Immature Granulocytes % (auto) 0.3 %; Lymphocytes % (auto) 20.1 %; Mean Corpuscular Hemoglobin 31.3 pg (25-34); Mean Corpuscular Volume 91.8 fL (80-100); Mean Platelet Volume 9.5 fL (7.4-10.4); Monocytes # (auto) 1.67 K/uL (0.11-0.59); Neutrophils # (auto) 7.33 K/uL (1.4-6.5); Neutrophils % (auto) 61.1 %; Platelet Count 239 K/uL (130-400); RDW Coefficient of Variation 13.1 % (11.5-14.5); RDW Standard Deviation 43.8 fL (36.4-46.3); Red Blood Count 4.16 M/uL (4.7-6.1); White Blood Count 11.96 K/uL (4.8-10.8)
[2019-12-11 10:02] LABS: Albumin Globulin Ratio 0.7 (0.9-2); Albumin Level 2.8 gm/dl (3.4-5.0); BUN Creatinine Ratio 12.4 (10-20); Bilirubin,Total 0.7 mg/dl (0.2-1); Calcium 8.3 mg/dl (8.5-10.1); Est GFR (African American) 116.8; Est GFR (Non-African American) 100.7; Globulin 3.9 gm/dl (2.5-4.0); Potassium 3.7 mmol/L (3.5-5.1); Total Protein 6.7 gm/dl (6.4-8.2)
--- NOTE | 2019-12-11 11:24 | Gastroenterology Progress Note ---
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 Now admitted with abdominal pain and CT scan showed acute pancreatitis in the uncinate process however his lipase was normal. Today he feels great and abdominal pain is controlled. Feels hungry. Denied alcohol use. On exam abdomen is soft. Labs: LFTs normal. MRCP with nondilated CBD Recommend: Etiology unclear however could be acute on chronic pancreatitis specifically that his lipase is normal. DDx includes idiopathic, duct-centric (type 2 AIP), Hereditary pancreatitis. Advance to regular diet. Needs JEN Genetic panel as OP. Wfln-[id number] protein (PBP) antibodies as OP. Follow up IgG-4 Will need EUS as OP in 4-6 weeks. May consider Pancreatic biopsy with special IgG-4 staining to evaluate AIP and also look for granulocytic epithelial lesion in the pancreatic duct. Recall GI if needed. Results & Data ([facility]) Vital Signs (Past 12 Hours) Vital Signs Temp Pulse Pulse Resp BP Pulse Ox 12/11/19 08:00 65 12/11/19 07:48 36.9 C 69 18 116/74 96 12/11/19 04:00 37.2 C 80 20 99/64 L 95 12/10/19 23:55 73
--- NOTE | 2019-12-11 15:33 | Emergency Department Note ---
History of Present Illness General Chief complaint: Abdominal Pain Stated complaint: ABD PAIN Time Seen by Provider: 12/10/19 09:33 Source: patient and EMS Mode of arrival: ambulatory Limitations: no limitations History of Present Illness Provider complaint: Abdominal pain Maximum Pain Intensity: 4 This patient is a 59-year-old male who presents the emergency department with complaints of lower abdominal pain. Patient states this is now the third day of pain and radiates to his back. Patient has a history of pancreatitis and although the pain is in a different location, it feels similar. Patient denies any difficulty with urination or blood in his urine. He denies any fevers, chil ls, chest pain or shortness of breath. Patient has had no vomiting or diarrhea. Home Medications Home Medications Medication Instructions Recorded Confirmed Type cyanocobalamin (vitamin B-12) 1,000 mcg SUBLINGUAL DAILY 02/16/18 12/10/19 History ergocalciferol (vitamin D2) 50,000 unit PO WK 02/16/18 12/10/19 History folic acid 1 mg PO DAILY 02/16/18 12/10/19 History levothyroxine 100 mcg PO DAILY 02/16/18 12/10/19 History multivitamin with minerals 1 tab PO DAILY 02/16/18 12/10/19 History [Multiple Vitamin-Minerals] omeprazole 20 mg PO DAILY 02/16/18 12/10/19 History tadalafil [Cialis] 5 mg PO DAILY 02/16/18 12/10/19 History Allergies Allergy/AdvReac Type Severity Reaction Status Date / Time gluten AdvReac Gastrointestinal Verified 12/10/19 10:31 Upset Past Med/Surg History Medical History Acute pancreatitis (Acute) BPH (benign prostatic hyperplasia) Celiac disease (Chronic) Hypothyroidism (Chronic) Impotence of organic origin (Chronic) Osteoporosis (Chronic) Pancreatitis Surgical History History of cholecystectomy Family History Other Cancer Hypertension Social History Preferred Language: [place] Communication Ability: Effective Visual Impairment: No Limitations Hearing Ability: Normal [employer] 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 and A total of 10 systems reviewed and were otherwise negative Physical Exam Vital signs reviewed. General: Well-appearing 59 yo male, in no significant distress. HEENT: No scleral icterus, PERRLA, neck supple. Atraumatic. Cardiovascular: Regular rate and rhythm, no extra sounds. Pulmonary: Clear to auscultation bilaterally, normal work of breathing. Abdomen: Soft, tender to palpation in the bilateral lower quadrants, nondistended, positive bowel sounds. Musculoskeletal: Atraumatic, no peripheral edema. Neurologic: Patient awake alert and oriented x 3 Skin: Warm, dry, no rash Course Administered Medications Levothyroxine Sodium (Synthroid) 100 mcg PO DAILYBB [facility] Stop: 01/10/20 06:29 Last Admin: 12/12/19 05:55 Dose: 100 mcg Documented by: [id number] Admin: 12/11/19 06:01 Dose: 100 mcg Documented by: [id number] Miscellaneous (Order Awaiting Action) 1 ea N/A QS [facility] Stop: 01/09/20 15:59 Last Admin: 12/11/19 17:44 Dose: Not Given Documented by: [id number] Admin: 12/11/19 15:28 Dose: Not Given Documented by: [id number] Admin: 12/11/19 08:16 Dose: Not Given Documented by: [id number] Admin: 12/11/19 00:03 Dose: Not Given Documented by: [id number] Admin: 12/10/19 17:09 Dose: Not Given Documented by: [id number] Morphine Sulfate (Morphine Sulfate) 2 mg IV Q4H PRN PRN Reason: Severe Pain Stop: 12/24/19 15:35 Last Admin: 12/10/19 21:10 Dose: 2 mg Documented by: [id number] Discontinued Medications Sodium Chloride (Nss 1000ml) 1,000 mls @ 999 mls/hr IV .Q1H1M ONE Stop: 12/10/19 12:06 Last Infusion: 12/10/19 14:07 Dose: 0 mls/hr Documented by: [id number] Admin: 12/10/19 13:05 Dose: 999 mls/hr Documented by: [id number] Acetaminophen (Ofirmev) 1,000 mg in 100 mls @ 400 mls/hr IV NOW STA Stop: 12/10/19 14:27 Last Infusion: 12/10/19 14:53 Dose: 0 mls/hr Documented by: [id number] Admin: 12/10/19 14:21 Dose: 400 mls/hr Documented by: [id number] Lactated Ringer's (Lr) 1,000 mls @ 200 mls/hr IV .Q5H APOLLO Stop: 01/09/20 15:39 Last Admin: 12/11/19 18:07 Dose: Not Given Documented by: [id number] Infusion: 12/11/19 18:06 Dose: 0 mls/hr Documented by: [id number] Infusion: 12/11/19 16:27 Dose: 200 mls/hr Documented by: [id number] Admin: 12/11/19 13:57 Dose: 200 mls/hr Documented by: [id number] Infusion: 12/11/19 13:52 Dose: 200 mls/hr Documented by: [id number] Admin: 12/11/19 08:52 Dose: 200 mls/hr Documented by: [id number] Infusion: 12/11/19 08:45 Dose: 200 mls/hr Documented by: [id number] Admin: 12/11/19 03:45 Dose: 200 mls/hr Documented by: [id number] Infusion: 12/11/19 02:49 Dose: 200 mls/hr Documented by: [id number] Admin: 12/10/19 21:49 Dose: 200 mls/hr Documented by: [id number] Infusion: 12/10/19 21:19 Dose: 0 mls/hr Documented by: [id number] Admin: 12/10/19 16:04 Dose: 200 mls/hr Documented by: [id number] Piperacillin Sod/Tazobactam (Sod 3.375 gm/ Dextrose) 115 mls @ 230 mls/hr IV NOW STA; Protocol Stop: 12/10/19 21:04 Last Infusion: 12/10/19 22:10 Dose: 0 mls/hr Documented by: [id number] Admin: 12/10/19 21:11 Dose: 230 mls/hr Documented by: [id number] Piperacillin Sod/Tazobactam (Sod 3.375 gm/ Dextrose) 115 mls @ 28.75 mls/hr IV Q8H APOLLO; Protocol Stop: 12/21/19 01:59 Last Infusion: 12/11/19 18:06 Dose: 0 mls/hr Documented by: [id number] Admin: 12/11/19 17:48 Dose: 28.8 mls/hr Documented by: [id number] Infusion: 12/11/19 15:28 Dose: 0 mls/hr Documented by: [id number] Admin: 12/11/19 11:07 Dose: 28.8 mls/hr Documented by: [id number] Infusion: 12/11/19 06:50 Dose: 0 mls/hr Documented by: [id number] Admin: 12/11/19 02:24 Dose: 28.8 mls/hr Documented by: [id number] Ioversol (Optiray 320 100ml) 94 ml IV ONCE PRN PRN Reason: Interaction Checking Stop: 12/14/19 12:11 Last Admin: 12/10/19 12:14 Dose: 94 ml Documented by: [id number] Ketorolac Tromethamine (Toradol) 15 mg IV NOW STA Stop: 12/10/19 09:54 Last Admin: 12/10/19 10:45 Dose: 15 mg Documented by: [id number] Ketorolac Tromethamine (Toradol) 15 mg IV Q6H PRN PRN Reason: Pain Last Admin: 12/11/19 05:59 Dose: 15 mg Documented by: [id number] Admin: 12/10/19 23:49 Dose: 15 mg Documented by: [id number] Admin: 12/10/19 17:05 Dose: 15 mg Documented by: [id number] Miscellaneous Information (Pharmacy Consult) 1 ea N/A NOW STA Stop: 12/10/19 14:46 Last Admin: 12/11/19 15:28 Dose: Not Given Documented by: [id number] Medical Decision Making Differential Diagnosis Vital signs reviewed. General: Well-appearing 59 yo male, in no significant distress. HEENT: No scleral icterus, PERRLA, neck supple. Atraumatic. Cardiovascular: Regular rate and rhythm, no extra sounds. Pulmonary: Clear to auscultation bilaterally, normal work of breathing. Abdomen: Soft, tender to palpation in the bilateral lower quadrants, minimal guarding and no rebound, nontender over the epigastric region, nondistended, positive bowel sounds. Musculoskeletal: Atraumatic, no peripheral edema. Neurologic: Patient awake alert and oriented x 3 Skin: Warm, dry, no rash Medical Records Attestation: I reviewed the patient's medical records. Home Medications Current Medication List: was personally reviewed by me Laboratory Data Attestation: I reviewed the patient's lab results. Result diagrams: 12/11/19 08:52 12/11/19 08:52 Lab Results 12/10/19 12/10/19 12/10/19 Range/Units 10:45 10:45 10:45 WBC 22.85 H (4.8-10.8) K/uL RBC 4.97 (4.7-6.1) M/uL Hgb 15.8 (14.0-18.0) g/dL Hct 45.8 (42-52) % MCV 92.2 (80-100) fL MCH 31.8 (25-34) pg MCHC 34.5 (32-36) g/dL RDW Std Deviation 44.1 (36.4-46.3) fL RDW Coeff of Rina 13.1 (11.5-14.5) % Plt Count 288 (130-400) K/uL MPV 9.6 (7.4-10.4) fL Immature Gran % (Auto) 0.4 % Neut % (Auto) 71.9 % Lymph % (Auto) 9.8 % Forrest % (Auto) 16.8 % Eos % (Auto) 1.0 % Baso % (Auto) 0.1 % Neut # (Auto) 16.44 H (1.4-6.5) K/uL Lymph # (Auto) 2.23 (1.2-3.4) K/uL Forrest # (Auto) 3.84 H (0.11-0.59) K/uL Eos # (Auto) 0.23 (0-0.5) K/uL Baso # (Auto) 0.03 (0-0.2) K/uL Immature Gran # (Auto) 0.08 H (0.00-0.02) K/uL Sodium 137 (136-145) mmol/L Potassium 4.0 (3.5-5.1) mmol/L Chloride 104 (98-107) mmol/L Carbon Dioxide 27 (21-32) mmol/L Anion Gap 6.0 (3-11) BUN 12 (7-18) mg/dl Creatinine 0.91 (0.6-1.4) mg/dl Est Cr Clr Drug Dosing 102.2 ml/min Est GFR ( Amer) 108.0 Est GFR (Non-Af Amer) 93.2 BUN/Creatinine Ratio 13.4 (10-20) Glucose 102 H (70-99) mg/dl Calcium 9.9 (8.5-10.1) mg/dl Total Bilirubin 0.8 (0.2-1) mg/dl AST 17 (15-37) U/L ALT 24 (12-78) U/L Alkaline Phosphatase 75 (45-117) U/L Total Protein 8.9 H (6.4-8.2) gm/dl Albumin 4.0 (3.4-5.0) gm/dl Globulin 4.9 H (2.5-4.0) gm/dl Albumin/Globulin Ratio 0.8 L (0.9-2) Lipase 182 (73-393) U/L Urine Color Yellow Urine Appearance Clear (Clear) Urine pH 5.5 (4.5-7.5) Ur Specific [place] 1.022 (1.000-1.030) Urine Protein Negative (Negative) Urine Glucose (UA) Negative (Negative) Urine Ketones Negative (Negative) Urine Blood 2+ H (Negative) Urine Nitrite Negative (Negative) Urine Bilirubin Negative (Negative) Urine Urobilinogen Negative (Negative) Ur Leukocyte Esterase Negative (Negative) Urine WBC (Auto) 1-5 (0-5) /hpf Urine RBC (Auto) 5-10 H (0-4) /hpf U Hyaline Cast (Auto) 1-5 (0-5) /lpf U Epithel Cells (Auto) 0-5 (0-5) /lpf Urine Bacteria (Auto) Negative (Negative) Imaging Data Radiologist's Impression: CT abd pelvis IV con only CT DOSE: 904.79 mGycm HISTORY: epigastric and lower abdominal pain TECHNIQUE: Multiaxial CT images of the abdomen and pelvis were performed following the use of intravenous contrast. A dose lowering technique was utilized adhering to the principles of ALARA. COMPARISON STUDY: 02/16/2018 FINDINGS: The lung bases are clear. The liver and spleen appear unremarkable. Kidneys enhance uniformly. No evidence for hydronephrosis. Edematous change and peripancreatic infiltrative change of the pancreatic uncinate process. Moderate peripancreatic infiltrative change with no evidence for abscess or collection. Mild reactive wall edematous change of the third portion of the duodenal sweep. No evidence for abscess collection or pseudocyst formation. Prior cholecystectomy. Mild reactive small bowel ileus. Stable postoperative changes in the anterior abdominal wall within the pelvis. B ladder is midline. No significant free fluid within the pelvic cul-de-sac. Small fat-containing periumbilical hernia. This is nonbowel containing and nonobstructive. IMPRESSION: 1. Acute pancreatitis primarily of the pancreatic uncinate region. 2. Moderate peripancreatic infiltrative change with no evidence for abscess collection or obstruction. 3. Mild reactive small bowel ileus. ACT 112: Negative or not required by law. The above report was generated using voice recognition software. It may contain grammatical, syntax or spelling errors. Electronically signed by: Gavin Nayak M.D. 12/10/2019 12:28 PM Dictated: 12/10/19 1223 Transcribed: 12/10/19 1223 ECG Data Attestation: I personally reviewed and interpreted this ECG as follows: Blood Pressure Blood Pressure Findings: Normal blood pressure Blood Pressure Disposition: did not require urgent referral MDM Narrative This patient was evaluated and appeared to be in no significant distress. IV access was obtained and laboratory work was drawn. An order for cardiac monitoring was placed and the patient is found to be in a normal sinus rhythm. IV hydration was initiated. Patient was given 15 mg of IV Toradol as he declined any narcotics. CT scan of the abdomen pelvis was ordered. CT reveals evidence of acute pancreatitis primarily of the pancreatic uncinate region. Moderate peripancreatic infiltrate with no evidence of abscess or fluid co llection. Laboratory work reveals a negative lipase but a white count of 22.85. Urinalysis is negative for infection. Patient's case was discussed with the hospitalist service who will evaluate the patient for admission and further management. Impression & Plan Acute pancreatitis Discharge Plan Visit Data *Final* Discharge Date/Time: 12/10/19 15:18 Chief Complaint: Abdominal Pain Stated Complaint: ABD PAIN ED Provider: Yessica Shine Discharge Problem: Acute pancreatitis Patient Disposition: Admitted As Inpatient Discharge Instructions Interventions: ED Discharge Assessment Last Done: 12/10/19 15:18 Discharge Problem: Acute pancreatitis Qualifiers: Pancreatitis type: unspecified pancreatitis type Acute pancreatitis co mplication: unspecified Qualified Code(s): K85.90 - Acute pancreatitis without necrosis or infection, unspecified
--- NOTE | 2019-12-11 18:04 | Hospitalist Progress Note ---
Date of Service December 11, 2019 Assessment & Plan (1) Acute pancreatitis: admitted with acute abdominal pain , nausea /vomiting suggestive of acute panceratitis symtpoms has resolved MRCP no biliary ductal dilatation normal LFT apprecite input from GI ok to advance diet to solid will DC IVF observe overnight plan to dc home in AM if remains medically stable Admission and Anticipated Discharge Date Admission Date: December 10, 2019 Subjective no complain of abdominal pain no nausea or vomiting lipase level normalized ordered to advance diet to solid plan to dc home in am if no furhter episode of abdominal pain Review of Systems Review of Systems: All systems reviewed & are unremarkable except as noted in HPI & below Physical Exam Constitutional: WD/WN, vitals as above Eyes: PERRL, conjunctivae normal, anicteric sclerae ENMT: external ear and nose normal, oropharynx normal Neck: trachea midline, no thyromegaly Respiratory: normal respiratory effort, lungs clear to auscultation Cardiovascular: RRR, no murmur, no edema Gastrointestinal (Abdomen): normal bowel sounds, soft, nontender, no hepatosplenomegaly Musculoskeletal: no cyanosis or clubbing, extremities motor strength 5/5 Skin: no rashes, warm and dry Neurologic: PERRL, EOMI, accommodation nl, no face palsy, no dysarthria Psychiatric: A+Ox3, euthymic affect Results & Data Results & Data ([facility]) Vital Signs (Past 12 Hours) Vital Signs Temp Pulse Pulse Resp BP Pulse Ox 12/11/19 16:10 36.9 C 64 18 124/80 98 12/11/19 15:26 74 12/11/19 11:28 36.8 C 77 17 125/84 97 12/11/19 08:00 65 12/11/19 07:48 36.9 C 69 18 116/74 96 (1) Acute pancreatitis Acute pancreatitis complication: unspecified Pancreatitis type: unspecified pancreatitis type Qualified Code(s): K85.90 - Acute pancreatitis without necrosis or infection, unspecified
[2019-12-12] MEDS: LEVOTHYROXINE SODIUM 100 MCG TABLET PO SCH (05:55)
--- NOTE | 2019-12-12 11:42 | Discharge Summary ---
Date of Service December 12, 2019 Admission HPI Per Admitting Provider pt is 59 y/o M with PMH celiac, hypothyroidism, h/o gallstone pancreatitis s/p cholecystectomy in 2018 presented to ER with complaint of abdominal pain x3 days. Patient states 3 days ago started with lower abdominal aching the following day abdomen seemed more distended was having discomfort mid to lower abdomen with radiation around to bilateral flanks. Today abdominal aching seems to be more lower abdomen. Denies any nausea, vomiting. Last BM yesterday was hard stool. Patient states ate rice yesterday and tried eggs for dinner but did not tolerate and aggravated abdominal pain. Denies any noted fever or chills. Reports has been avoiding gluten. Denies SORIANO, dizziness, syncope, vision changes, neck pain, CP, SOB, orthopnea, palpitations, cough, sore throat, choking, otalgia, rhinorrhea, paresthesias, weakness, extremity weakness, extremity edema, rashes, urinary symptoms. Principal Diagnosis ACUTE PANCREATITIS Discharge Exam Constitutional WD/WN, vitals as above Eyes PERRL, conjunctivae normal, anicteric sclerae ENMT external ear and nose normal, oropharynx normal Neck trachea midline, no thyromegaly Respiratory normal respiratory effort, lungs clear to auscultation Cardiovascular RRR, no murmur, no edema Gastrointestinal (Abdomen) normal bowel sounds, soft, nontender, no hepatosplenomegaly Musculoskeletal no cyanosis or clubbing, extremities motor strength 5/5 Skin no rashes, warm and dry Neurologic PERRL, EOMI, accommodation nl, no face palsy, no dysarthria Psychiatric A+Ox3, euthymic affect Discharge Data Allergies Allergy/AdvReac Type Severity Reaction Status Date / Time gluten AdvReac Gastrointestinal Verified 12/10/19 10:31 Upset Consultations 12/10/19 13:50 ED Decision to Admit Stat 12/10/19 15:36 Consult Gastroenterology Routine Ordered Studies 12/10/19 09:53 CT abd pelvis IV con only Stat 12/10/19 15:51 MR MRCP Routine Hospital Course (1) Acute pancreatitis: admitted with acute abdominal pain , nausea /vomiting Symptom has completely resolved Diet advanced to solid, tolerating well, no nausea vomiting abdominal pain The abdomen pelvis: Suggestive of acute pancreatitis MRCP no biliary ductal dilatation normal LFT appreciate input from GI Recommends outpatient EUS in the next 4-6 weeks Patient is medically stable to be discharged home today Total Time Total Time Spent Total Time Spent (In Minutes): 35 minutes Total Time Includes: Examination of the Patient, Discharge Planning and Medication Reconciliation Discharge Plan Discharge Items Patient Disposition: Home - Self-Care Reason For Visit: ABD PAIN, PANCREATITIS Discharge Diagnosis: ACUTE PANCREATITIS Activity: Resume your previous activity Driving/Machine Use: Resume 3 days after discharge Non-emergency contact: Primary Care Provider Call non-emergency contact if: you have any medication questions Follow-up/Referrals: Aram Muller MD [Primary Care Provider] - Rosenda Larkin M.D. [Hospitalist] - (Follow up with GI for out patient EUS) Diet: Low Fat Addtl Attending Provider Instructions: Continue low-fat diet for 2 to 3 weeks Follow-up with gastroenterology in clinic Hospital follow-up with family physician in 1 week office will call with appointment Pending Studies at Discharge: No Stand-Alone Forms: [employer], Smoking Cessation Medications and DC Order Prescriptions: Continued levothyroxine 100 mcg tablet 100 mcg PO DAILY RF: 0 omeprazole 20 mg capsule,delayed release(DR/EC) 20 mg PO DAILY RF: 0 folic acid 1 mg tablet 1 mg PO DAILY RF: 0 cyanocobalamin (vitamin B-12) 1,000 mcg Tablet, Sublingual 1,000 mcg SUBLINGUAL DAILY RF: 0 ergocalciferol (vitamin D2) 50,000 unit capsule 50,000 unit PO WK RF: 0 tadalafil 5 mg tablet 5 mg PO DAILY RF: 0 multivitamin with minerals [Multiple Vitamin-Minerals] Tablet 1 tab PO DAILY RF: 0 Discharge Orders: Discharge Order (Routine); Ordered 12/12/19 Ordered By: Adriana Almonte Admission Data Admit Date/Time: 12/10/19 14:45 Attending Provider: Adriana Almonte Admit Provider: Shayan Traylor Primary Care Provider: Aram Muller Other Providers: Shayan Traylor ; Rosenda Larkin Other Interventions: Discharge Summary Assessment (RN) Last Done: 12/12/19 09:49 DC Date/Time DO NOT enter until pt leaves facility: 12/12/19 10:13
[2019-12-19 22:49] LABS: Immunoglobulin G4 184.5 mg/dL (4.0-86.0)
== END 2019-12-12 10:13 | disposition home or self-care (01) ==
LOC: ED 08:59 → SUATTDRO 14:45 → 2N 14:45 → INTOOBSV 14:45 → 2N 15:18 → 3W 12-12 00:32

== ENCOUNTER 2020-01-16 17:45 | Inpatient (IN) ==
[2020-01-16] MEDS ORDERED: KETOROLAC TROMETHAMINE 15 MG/ML VIAL IV ONE (18:07)
[2020-01-16] MEDS ORDERED: SODIUM CHLORIDE 0.9% 1000ML 2,000 ML IV ONE (18:07)
[2020-01-16 18:14] LABS: Basophils # (auto) 0.03 K/uL (0-0.2); Basophils % (auto) 0.2 %; Eosinophils % (auto) 3.1 %; Hematocrit (blood only) 43.2 % (42-52); Hemoglobin 14.7 g/dL (14.0-18.0); Immature Granulocytes # (auto) 0.06 K/uL (0.00-0.02); Immature Granulocytes % (auto) 0.4 %; Lymphocytes # (auto) 2.36 K/uL (1.2-3.4); Lymphocytes % (auto) 14.4 %; Mean Corpuscular Hemoglobin 31.3 pg (25-34); Mean Corpuscular Volume 91.9 fL (80-100); Mean Platelet Volume 9.6 fL (7.4-10.4); Monocytes # (auto) 2.28 K/uL (0.11-0.59); Monocytes % (auto) 13.9 %; Neutrophils # (auto) 11.13 K/uL (1.4-6.5); Platelet Count 275 K/uL (130-400); RDW Coefficient of Variation 12.9 % (11.5-14.5); RDW Standard Deviation 43.6 fL (36.4-46.3); White Blood Count 16.36 K/uL (4.8-10.8)
[2020-01-16 18:14] LABS: Appearance Urine Clear (Clear); Bilirubin Urine Negative (Negative); Blood Urine 2+ (Negative); Color Urine Yellow; Glucose Urine UA Negative (Negative); Ketones Urine 1+ (Negative); Leukocyte Esterase Urine Negative (Negative); Nitrite Urine Negative (Negative); Protein Urine Negative (Negative); Specific Gravity Urine 1.015 (1.000-1.030); Urobilinogen Urine Positive (Negative)
[2020-01-16 18:21] LABS: Bacteria Urine Negative (Negative); Epithelial Cell Urine 0-5 /lpf (0-5); RBC Urine >30 /hpf (0-4); WBC Urine 0-5 /hpf (0-5)
[2020-01-16 18:33] LABS: Albumin Level 3.4 gm/dl (3.4-5.0); BUN Creatinine Ratio 13.6 (10-20); Calcium 8.9 mg/dl (8.5-10.1); Creatinine Clr Calc Pharmacy 93.6 ml/min; Est GFR (African American) 98.8; Est GFR (Non-African American) 85.2; Potassium 3.8 mmol/L (3.5-5.1)
--- NOTE | 2020-01-16 18:38 | Emergency Department Note ---
Impression & Plan Acute pancreatitis, Abdominal pain, Leukocytosis ED Provider Note NAME: BALTA PALOMINO AGE: 59 SEX: M : 1960 ARRIVES VIA: Walk-In INFORMANT: Patient, ED PROVIDER(S): Jame Sanchez DO CHIEF COMPLAINT: Abdominal pain HPI: Patient is a 59-year-old male who presents the ER for abdominal pain. This started this past . Is located in the mid supraumbilical region and wraps around to both sides. He notes that this feels like his previous bouts of pancreatitis. He notes it is currently an 8 out of 10. He has been trying not to eat or drink to see if it would improve at home. Previous cholecystectomy. He does not drink alcohol. 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 Last bowel movement was about 24 hours ago. No dysuria urgency or frequency. No other exacerbating or remitting factors. ROS: See above HPI for pertinent positives & negatives. A total of 10 systems reviewed and were otherwise negative. PAST MEDICAL HISTORY:See Below PAST SURGICAL HISTORY:See Below FAMILY HISTORY:See Below SOCIAL HISTORY:See Below HOME MEDICATIONS:See Below ALLERGIES:See Below VITALS:See Below PHYSICAL EXAMINATION: GENERAL: Sitting up in bed, alert, well appearing, well nourished, no distress, non-toxic EYE EXAM: normal conjunctiva. OROPHARYNX: no exudate, no erythema, lips, buccal mucosa, and tongue normal and mucous membranes are moist NECK: supple, no nuchal rigidity, no adenopathy, non-tender LUNGS: Clear to auscultation. Normal chest wall mechanics HEART: no murmurs, S1 normal and S2 normal ABDOMEN: abdomen soft, Tender palpation epigastric region, normo-active bowel sounds, no masses, no rebound or guarding. BACK: Back is symmetrical on inspection and there is no deformity, no midline tenderness, no CVA tenderness. SKIN: no rashes and no bruising UPPER EXTREMITIES: upper extremities are grossly normal. LOWER EXTREMITIES: No pitting edema. NEURO EXAM: Normal sensorium, cranial nerves II-XII grossly intact, normal speech, no gross weakness of arms, no gross weakness of legs. MEDICAL DECISION MAKING: Patient is a 59-year-old male who presents the ER for periumbilical abdominal pain which is been present since this past . Feels like previous bouts of pancreatitis. History of cholecystectomy. Does not drink alcohol. History of autoimmune pancreatitis. Follows with GI. Vitals are stable. Labs show leukocytosis 16,000. No significant anemia. BMP with LFTs bilirubin was unremarkable. Lipase was actually normal. Previous pancreatitis Had a normal lipase. [address] as well as the last visit had an MRI. Elected to refrain from radiation and performed an ultrasound which did not visualize the pancreas at this time. Patient was updated bedside. He was given IV fluids Zofran and Toradol. Still having pain given IV morphine. He was updated and discussed the hospitalist for further evaluation. Triage Nursing notes reviewed. Prior medical records reviewed Vital Signs: reviewed and remarkable for no significant abnormalities Differential diagnosis: Differential diagnoses includes but is not limited to gastritis, peptic ulcer disease, GERD, gallbladder disease, pancreatitis, small bowel obstruction, acute coronary syndrome, pericarditis, ischemic bowel, irritable bowel disease, irritable bowel syndrome, appendicitis, diverticulitis, malignancy, hernia, urinary tract infection, torsion, perforation, trauma, infectious. ER treatment provided: See below Diagnostics interpreted by me: ECG: none Cardiac Monitoring: An order was placed for continuous cardiac monitoring. The monitor shows a rate of 91 with Sinus rhythm. Laboratory studies: As stated above and show below. Imaging studies: Ultrasound of the pancreas was limited secondary to bowel gas pattern Consultation(s): Discussed with Dr. Lobo for admission. 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 Required: No Beliefs That Will Affect Care: None Current Living Situation: Significant Other Feels Safe at Home: Yes Allergies Allergies Allergy/AdvReac Type Severity Reaction Status Date / Time gluten AdvReac Gastrointestinal Verified 01/16/20 18:58 Upset Home Meds Home Medications Medication Instructions Recorded Confirmed cyanocobalamin (vitamin B-12) 1,000 mcg SUBLINGUAL DAILY 02/16/18 01/16/20 folic acid 1 mg PO DAILY 02/16/18 01/16/20 levothyroxine 100 mcg PO DAILY 02/16/18 01/16/20 multivitamin with minerals 1 tab PO DAILY 02/16/18 01/16/20 [Multiple Vitamin-Minerals] omeprazole 20 mg PO DAILY 02/16/18 01/16/20 tadalafil 5 mg PO HS 02/16/18 01/16/20 acetaminophen [Tylenol Extra 1,000 mg PO Q6H PRN 01/16/20 01/16/20 Strength] calcium carbonate [Calcium 500] 500 mg PO Q OTHER DAY 01/16/20 01/16/20 cholecalciferol (vitamin D3) 10 mcg PO Q OTHER DAY 01/16/20 01/16/20 naproxen sodium [Aleve] 440 mg PO BID PRN 01/16/20 01/16/20 Results & Data (ED) Vital Signs Vital Signs - 24 hr 01/16/20 17:46 01/16/20 18:00 01/16/20 18:30 Temperature 37.1 C Temperature Source Oral Pulse Rate 106 H 88 85 Pulse Rate from SpO2 Sensor 91 H 82 Respiratory Rate 20 19 22 Respiratory Effort / Characteristics Non-Labored Respiratory Depth Normal Blood Pressure 131/83 132/87 114/81 Blood Pressure Mean 99 105 89 Pulse Oximetry 98 96 93 Oxygen Delivery Method Room Air Room Air Room Air Sepsis Recent Fever Within 48 Hours No Sepsis New/Unexplained Change in Mental Status N/A Sepsis Action Taken by Nursing No Action Required 01/16/20 19:30 01/16/20 20:00 Temperature Temperature Source Pulse Rate 94 H 94 H Pulse Rate from SpO2 Sensor 95 H Respiratory Rate 20 17 Respiratory Effort / Characteristics Respiratory Depth Blood Pressure 133/90 122/85 Blood Pressure Mean 95 89 Pulse Oximetry 97 96 Oxygen Delivery Method Room Air Room Air Sepsis Recent Fever Within 48 Hours Sepsis New/Unexplained Change in Mental Status Sepsis Action Taken by Nursing Laboratory Data Result diagrams: 01/16/20 18:03 01/16/20 18:03 Lab Results 01/16/20 01/16/2001/15/20 Range/Units 18:00 18:03 18:03 WBC 16.36 H (4.8-10.8) K/uL RBC 4.70 (4.7-6.1) M/uL Hgb 14.7 (14.0-18.0) g/dL Hct 43.2 (42-52) % MCV 91.9 (80-100) fL MCH 31.3 (25-34) pg MCHC 34.0 (32-36) g/dL RDW Std Deviation 43.6 (36.4-46.3) fL RDW Coeff of Rina 12.9 (11.5-14.5) % Plt Count 275 (130-400) K/uL MPV 9.6 (7.4-10.4) fL Immature Gran % (Auto) 0.4 % Neut % (Auto) 68.0 % Lymph % (Auto) 14.4 % [place] % (Auto) 13.9 % Eos % (Auto) 3.1 % Baso % (Auto) 0.2 % Neut # (Auto) 11.13 H (1.4-6.5) K/uL Lymph # (Auto) 2.36 (1.2-3.4) K/uL Sampson # (Auto) 2.28 H (0.11-0.59) K/uL Eos # (Auto) 0.50 (0-0.5) K/uL Baso # (Auto) 0.03 (0-0.2) K/uL Immature Gran # (Auto) 0.06 H (0.00-0.02) K/uL Sodium 139 (136-145) mmol/L Potassium 3.8 (3.5-5.1) mmol/L Chloride 107 (98-107) mmol/L Carbon Dioxide 27 (21-32) mmol/L Anion Gap 5.0 (3-11) BUN 13 (7-18) mg/dl Creatinine 0.98 (0.6-1.4) mg/dl Est Cr Clr Drug Dosing 93.6 ml/min Est GFR ( Amer) 98.8 Est GFR (Non-Af Amer) 85.2 BUN/Creatinine Ratio 13.6 (10-20) Glucose 92 (70-99) mg/dl Calcium 8.9 (8.5-10.1) mg/dl Magnesium 1.9 (1.8-2.4) mg/dl Total Bilirubin 0.7 (0.2-1) mg/dl AST 29 (15-37) U/L ALT 23 (12-78) U/L Alkaline Phosphatase 71 (45-117) U/L Total Protein 7.7 (6.4-8.2) gm/dl Albumin 3.4 (3.4-5.0) gm/dl Globulin 4.3 H (2.5-4.0) gm/dl Albumin/Globulin Ratio 0.8 L (0.9-2) Lipase 255 (73-393) U/L Urine Color Yellow Urine Appearance Clear (Clear) Urine pH 7.0 (4.5-7.5) Ur Specific [place] 1.015 (1.000-1.030) Urine Protein Negative (Negative) Urine Glucose (UA) Negative (Negative) Urine Ketones 1+ H (Negative) Urine Blood 2+ H (Negative) Urine Nitrite Negative (Negative) Urine Bilirubin Negative (Negative) Urine Urobilinogen Positive H (Negative) Ur Leukocyte Esterase Negative (Negative) Urine RBC >30 H (0-4) /hpf Urine WBC 0-5 (0-5) /hpf Ur Epithelial Cells 0-5 (0-5) /lpf Urine Bacteria Negative (Negative) Administered Medications Discontinued Medications Sodium Chloride (Nss 1000ml) 2,000 mls @ 999 mls/hr IV .Q2H1M ONE Stop: 01/16/20 20:07 Last Infusion: 01/16/20 20:39 Dose: 0 mls/hr Documented by: [id number] Admin: 01/16/20 18:20 Dose: 999 mls/hr Documented by: [id number] Ketorolac Tromethamine (Ketorolac Tromethamine 15 Mg/Ml Vial) 15 mg IV NOW ONE Stop: 01/16/20 18:08 Last Admin: 01/16/20 18:19 Dose: 15 mg Documented by: [id number] Morphine Sulfate (Morphine Sulfate 4 Mg/Ml 1 Ml Carp\Vial) 4 mg IV NOW STA Stop: 01/16/20 20:34 Last Admin: 01/16/20 20:38 Dose: 4 mg Documented by: [id number] Discharge Plan Visit Data Chief Complaint: Abdominal Pain Stated Complaint: ABD PAIN ED Provider: Jame Sanchez Discharge Problem: Acute pancreatitis, Abdominal pain, Leukocytosis Forms Stand Alone Forms: [facility] [employer] Prescriptions Prescriptions: No Action acetaminophen [Tylenol Extra Strength] 500 mg Tablet 1,000 mg PO Q6H PRN (Reason: Fever Or Pain) RF: 0 calcium carbonate [Calcium 500] 500 mg calcium (1,250 mg) Tablet 500 mg PO Q OTHER DAY RF: 0 naproxen sodium [Aleve] 220 mg Tablet 440 mg PO BID PRN (Reason: Fever Or Pain) RF: 0 cholecalciferol (vitamin D3) 10 mcg (400 unit) Tablet 10 mcg PO Q OTHER DAY RF: 0 levothyroxine 100 mcg tablet 100 mcg PO DAILY RF: 0 omeprazole 20 mg capsule,delayed release(DR/EC) 20 mg PO DAILY RF: 0 folic acid 1 mg tablet 1 mg PO DAILY RF: 0 cyanocobalamin (vitamin B-12) 1,000 mcg Tablet, Sublingual 1,000 mcg SUBLINGUAL DAILY RF: 0 tadalafil 5 mg tablet 5 mg PO HS RF: 0 multivitamin with minerals [Multiple Vitamin-Minerals] Tablet 1 tab PO DAILY RF: 0 Discharge Problem: Acute pancreatitis Qualifiers: Pancreatitis type: other Acute pancreatitis complication: unspecified Qualified Code(s): K85.80 - Other acute pancreatitis without necrosis or infection Abdominal pain Qualifiers: Abdominal location: unspecified location Qualified Code(s): R10.9 - Unspecified abdominal pain Leukocytosis Qualifiers: Leukocytosis type: unspecified Qualified Code(s): D72.829 - Elevated white blood cell count, unspecified
[2020-01-16 18:42] LABS: Albumin Globulin Ratio 0.8 (0.9-2); Bilirubin,Total 0.7 mg/dl (0.2-1); Globulin 4.3 gm/dl (2.5-4.0); Total Protein 7.7 gm/dl (6.4-8.2)
--- NOTE | 2020-01-16 19:32 | Ultrasound Report ---
US pancreas HISTORY: 59 years-old Male mid abd pain acute mid abdominal pain COMPARISON: CT abdomen pelvis 12/10/2019 TECHNIQUE: Multiple real-time sonographic images of the abdominal right upper quadrant were obtained assessing grayscale appearance and color flow FINDINGS: The pancreas is obscured by bowel gas. No hepatic mass lesion. Mild nonspecific heterogeneity of the liver. Hepatopedal flow within the main portal vein. Normal common bile duct, 4 mm. Cholecystectomy. Unremarkable right kidney without hydronephrosis. IMPRESSION: 1. The pancreas is obscured by bowel gas. 2. Cholecystectomy. 3. No biliary ductal dilation. ACT 112: Negative or not required by law. The above report was generated using voice recognition software. It may contain grammatical, syntax o r spelling errors. Electronically signed by: Demetrius Ford M.D. 01/16/2020 7:30 PM
[2020-01-16] MEDS ORDERED: MoRPHine SULFATE 4 MG/ML 1 ML CARP\\VIAL IV STA (20:33)
[2020-01-16] MEDS ORDERED: LACTATED RINGER'S 1,000 ML IV ONE (20:47)
[2020-01-16 20:59] LABS: Magnesium 1.9 mg/dl (1.8-2.4)
[2020-01-16] MEDS ORDERED: ACETAMINOPHEN 325 MG TAB PO PRN (21:27)
[2020-01-16] MEDS ORDERED: MoRPHine SULFATE 4 MG/ML 1 ML CARP\\VIAL IV PRN (21:27)
[2020-01-16] MEDS ORDERED: PROMETHAZINE HCL 12.5 MG in SODIUM CHLORIDE 0.9% 50 ML IV PRN (21:27)
[2020-01-16] MEDS ORDERED: IOVERSOL 100ml IV ONE (21:42)
--- NOTE | 2020-01-16 21:51 | History & Physical Report ---
Date of Service January 16, 2020 Assessment & Plan (1) Recurrent pancreatitis: Possible autoimmune pancreatitis with abnormal outpatient IgG4 levels. Hypothyroidism, euthyroid as of recent outpatient TSH last month F Bowel rest, LRS IVF GI consult RE recurrent pancreatitis DVT prophylaxis Lovenox subcu Full code Text document was generated using K[employer]cher voice recognition software. It may contain grammatical or spelling errors. Kindly contact undersigned for clarification of any documentation item in question. History of Present Illness Chief Complaint: Abdominal pain Primary Care Provider: Aram Muller MD History obtained from patient and records. Medical history significant for recurrent pancreatitis, celiac disease, IBS as per records, hypothyroidism. Last confinement last month for recurrent pancreatitis. Outpatient EUS recommended after 4 to 6 weeks. Patient seen at [facility] office outpatient a week after confinement. Concern for autoimmune pancreatitis as per patient. Outpatient IgG subclass 4 noted to be elevated at 213.8. 3 days ago patient noted epigastric discomfort going to his back somewhat reminiscent of pancreatitis attack. Denies recent alcohol intake. May have had a heavy meal a day before discomfort. No fever, no chills. No chest pain, no S OB. Worsening discomfort despite trying to limit food intake at home. 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 Allergies Allergy/AdvReac Type Severity Reaction Status Date / Time gluten AdvReac Gastrointestinal Verified 01/16/20 18:58 Upset Home Medications Home Medications Medication Instructions Recorded Confirmed Type cyanocobalamin (vitamin B-12) 1,000 mcg SUBLINGUAL DAILY 02/16/18 01/16/20 History folic acid 1 mg PO DAILY 02/16/18 01/16/20 History levothyroxine 100 mcg PO DAILY 02/16/18 01/16/20 History multivitamin with minerals 1 tab PO DAILY 02/16/18 01/16/20 History [Multiple Vitamin-Minerals] omeprazole 20 mg PO DAILY 02/16/18 01/16/20 History tadalafil 5 mg PO HS 02/16/18 01/16/20 History acetaminophen [Tylenol Extra 1,000 mg PO Q6H PRN 01/16/20 01/16/20 History Strength] calcium carbonate [Calcium 500] 500 mg PO Q OTHER DAY 01/16/20 01/16/20 History cholecalciferol (vitamin D3) 10 mcg PO Q OTHER DAY 01/16/20 01/16/20 History naproxen sodium [Aleve] 440 mg PO BID PRN 01/16/20 01/16/20 History Past Med/Surg History Medical History (Updated 01/16/20 @ 22:32 by Rowdy Jung MD) Acute pancreatitis BPH (benign prostatic hyperplasia) Celiac disease Hypothyroidism Impotence of organic origin Osteoporosis Pancreatitis Surgical History History of cholecystectomy Family History Other Cancer Hypertension Social History Smoking Status: Never smoker Hx Alcohol Use: No Hx Substance Use: No Preferred Language: Niuean Communication Ability: Effective Visual Impairment: No Limitations Hearing Ability: Normal Nutritional Yeast Supervisor Required: No Beliefs That Will Affect Care: None Current Living Situation: Significant Other Feels Safe at Home: Yes Review of Systems Review of Systems: As per HPI, all 10 systems reviewed, all other ROS negative Physical Exam Physical Exam: GENERAL: Comfortable, pleasant, no respiratory distress SKIN: Normal color, warm HEENT: Nevus right uatsdin, pink palpebral conjunctivae, no ptosis, dry buccal mucosa NECK : Supple, no tenderness CHEST : CTA, no tenderness HEART : RRR, no obvious murmurs ABDOMEN: Some distention, minimal epigastric tenderness EXTREMITIES : No LE swelling/tenderness, no other conspicuous deformities noted NEUROLOGIC : Coherent, no facial asymmetry, no other gross focality Results & Data Results & Data ([facility]) Vital Signs (Past 12 Hours) Vital Signs Temp Pulse Resp BP Pulse Ox 01/16/20 20:00 94 H 17 122/85 96 01/16/20 19:30 94 H 20 133/90 97 01/16/20 18:30 85 22 114/81 93 01/16/20 18:00 88 19 132/87 96 01/16/20 17:46 37.1 C 106 H 20 131/83 98 Laboratory Results Laboratory Results WBC 16.36 K/uL (4.8-10.8) H 01/16/20 18:03 RBC 4.70 M/uL (4.7-6.1) 01/16/20 18:03 Hgb 14.7 g/dL (14.0-18.0) 01/16/20 18:03 Hct 43.2 % (42-52) 01/16/20 18:03 MCV 91.9 fL (80-100) 01/16/20 18:03 MCH 31.3 pg (25-34) 01/16/20 18:03 MCHC 34.0 g/dL (32-36) 01/16/20 18:03 RDW Std Deviation 43.6 fL (36.4-46.3) 01/16/20 18:03 RDW Coeff of Rina 12.9 % (11.5-14.5) 01/16/20 18:03 Plt Count 275 K/uL (130-400) 01/16/20 18:03 MPV 9.6 fL (7.4-10.4) 01/16/20 18:03 Immature Gran % (Auto) 0.4 % 01/16/20 18:03 Neut % (Auto) 68.0 % 01/16/20 18:03 Lymph % (Auto) 14.4 % 01/16/20 18:03 [place] % (Auto) 13.9 % 01/16/20 18:03 Eos % (Auto) 3.1 % 01/16/20 18:03 Baso % (Auto) 0.2 % 01/16/20 18:03 Neut # (Auto) 11.13 K/uL (1.4-6.5) H 01/16/20 18:03 Lymph # (Auto) 2.36 K/uL (1.2-3.4) 01/16/20 18:03 [place] # (Auto) 2.28 K/uL (0.11-0.59) H 01/16/20 18:03 Eos # (Auto) 0.50 K/uL (0-0.5) 01/16/20 18:03 Baso # (Auto) 0.03 K/uL (0-0.2) 01/16/20 18:03 Immature Gran # (Auto) 0.06 K/uL (0.00-0.02) H 01/16/20 18:03 Sodium 139 mmol/L (136-145) 01/16/20 18:03 Potassium 3.8 mmol/L (3.5-5.1) 01/16/20 18:03 Chloride 107 mmol/L (98-107) 01/16/20 18:03 Carbon Dioxide 27 mmol/L (21-32) 01/16/20 18:03 Anion Gap 5.0 (3-11) 01/16/20 18:03 BUN 13 mg/dl (7-18) 01/16/20 18:03 Creatinine 0.98 mg/dl (0.6-1.4) 01/16/20 18:03 Est Cr Clr Drug Dosing 93.6 ml/min 01/16/20 18:03 Est GFR ( Amer) 98.8 01/16/20 18:03 Est GFR (Non-Af Amer) 85.2 01/16/20 18:03 BUN/Creatinine Ratio 13.6 (10-20) 01/16/20 18:03 Glucose 92 mg/dl (70-99) 01/16/20 18:03 Calcium 8.9 mg/dl (8.5-10.1) 01/16/20 18:03 Magnesium 1.9 mg/dl (1.8-2.4) 01/16/20 18:03 Total Bilirubin 0.7 mg/dl (0.2-1) 01/16/20 18:03 AST 29 U/L (15-37) 01/16/20 18:03 ALT 23 U/L (12-78) 01/16/20 18:03 Alkaline Phosphatase 71 U/L (45-117) 01/16/20 18:03 Total Protein 7.7 gm/dl (6.4-8.2) 01/16/20 18:03 Albumin 3.4 gm/dl (3.4-5.0) 01/16/20 18:03 Globulin 4.3 gm/dl (2.5-4.0) H 01/16/20 18:03 Albumin/Globulin Ratio 0.8 (0.9-2) L 01/16/20 18:03 Lipase 255 U/L (73-393) 01/16/20 18:03 Procalcitonin 0.10 ng/ml (0-0.5) 01/16/20 18:03 Urine Color Yellow 01/16/20 18:00 Urine Appearance Clear (Clear) 01/16/20 18:00 Urine pH 7.0 (4.5-7.5) 01/16/20 18:00 Ur Specific [place] 1.015 (1.000-1.030) 01/16/20 18:00 Urine Protein Negative (Negative) 01/16/20 18:00 Urine Glucose (UA) Negative (Negative) 01/16/20 18:00 Urine Ketones 1+ (Negative) H 01/16/20 18:00 Urine Blood 2+ (Negative) H 01/16/20 18:00 Urine Nitrite Negative (Negative) 01/16/20 18:00 Urine Bilirubin Negative (Negative) 01/16/20 18:00 Urine Urobilinogen Positive (Negative) H 01/16/20 18:00 Ur Leukocyte Esterase Negative (Negative) 01/16/20 18:00 Urine RBC >30 /hpf (0-4) H 01/16/20 18:00 Urine WBC 0-5 /hpf (0-5) 01/16/20 18:00 Ur Epithelial Cells 0-5 /lpf (0-5) 01/16/20 18:00 Urine Bacteria Negative (Negative) 01/16/20 18:[address] abdomen pelvis initial read: Acute pancreatitis, mildly worsened from December 10, 2019. No pseudocyst or abscess. Status post cholecystectomy. No significant biliary dilatation. Status post inguinal repair. No recurrence. Normal appendix. No bowel wall thickening or infarction. No free air or free fluid.
[2020-01-16] MEDS ORDERED: LORazepam 0.25 MG/0.5 ML VIAL IV PRN (23:31)
[2020-01-17] MEDS: TRAMADOL HCL 50 MG TABLET PO PRN ×2 (00:12→04:27)
[2020-01-17] MEDS: LACTATED RINGER'S 1,000 ML IV SCH ×4 (03:16→18:18)
[2020-01-17 06:18] LABS: Basophils # (auto) 0.02 K/uL (0-0.2); Basophils % (auto) 0.1 %; Eosinophils # (auto) 0.46 K/uL (0-0.5); Eosinophils % (auto) 2.9 %; Immature Granulocytes # (auto) 0.05 K/uL (0.00-0.02); Immature Granulocytes % (auto) 0.3 %; Lymphocytes # (auto) 2.66 K/uL (1.2-3.4); Lymphocytes % (auto) 16.6 %; Mean Corpuscular Hemoglobin 30.8 pg (25-34); Mean Corpuscular Hgb Conc 33.3 g/dL (32-36); Mean Corpuscular Volume 92.4 fL (80-100); Mean Platelet Volume 9.9 fL (7.4-10.4); Monocytes # (auto) 2.31 K/uL (0.11-0.59); Monocytes % (auto) 14.4 %; Neutrophils % (auto) 65.7 %; Platelet Count 257 K/uL (130-400); RDW Coefficient of Variation 13.1 % (11.5-14.5); RDW Standard Deviation 44.6 fL (36.4-46.3); Red Blood Count 4.22 M/uL (4.7-6.1)
[2020-01-17 06:35] LABS: Albumin Level 2.9 gm/dl (3.4-5.0); Calcium 8.4 mg/dl (8.5-10.1); Creatinine Clr Calc Pharmacy 133.1 ml/min; Est GFR (African American) 122.1; Est GFR (Non-African American) 105.4; Potassium 3.7 mmol/L (3.5-5.1)
[2020-01-17 06:38] LABS: Albumin Globulin Ratio 0.7 (0.9-2); Bilirubin,Total 0.7 mg/dl (0.2-1); Total Protein 6.9 gm/dl (6.4-8.2)
[2020-01-17] MEDS: LEVOTHYROXINE SODIUM 100 MCG TABLET PO SCH (07:06)
[2020-01-17] MEDS: ENOXAPARIN INJ 40 MG/0.4 ML SYR SQ SCH (07:48)
[2020-01-17] MEDS: PANTOprazole 40 MG TAB PO SCH (07:49)
[2020-01-17] MEDS: FOLIC ACID 1 MG TAB PO SCH (07:49)
[2020-01-17] MEDS: CEROVITE ADV FORMULA TAB PO SCH (07:49)
--- NOTE | 2020-01-17 08:08 | CT Scan Report ---
CT SCAN OF THE ABDOMEN AND PELVIS WITH IV CONTRAST CLINICAL HISTORY: Generalized abdominal pain. COMPARISON STUDY: Abdominal CT dated 12/10/2019. TECHNIQUE: Following the IV administration of 93 cc of Optiray 320, CT scan of the abdomen and pelvi s is performed from the lung bases to the proximal femora. Images are reviewed in the axial, sagittal , and coronal planes. IV contrast was administered without complication. A dose lowering technique wa s utilized adhering to the principles of ALARA. CT DOSE: 791.64 mGy.cm FINDINGS: Lung bases: The heart is normal in size and without pericardial effusion. There are coronary artery c alcifications. A small hiatal hernia is noted. The lung bases are clear noting mild bibasilar scarrin g/atelectasis. Liver: The contrast-enhanced liver is normal in size, contour, and attenuation. There is no intrahepa tic biliary ductal dilatation. The hepatic veins and portal veins are patent. Gallbladder: Surgically absent with clips in the gallbladder fossa. Spleen: Normal in size and attenuation. Pancreas: There is moderate glandular atrophy of the pancreas. There is significant peripancreatic st randing and trace perihepatic fluid consistent with acute pancreatitis. The parenchyma enhances throu ghout. No organized peripancreatic fluid collection is identified. The splenic vein is patent. Adrenal glands: Unremarkable. Kidneys: The contrast enhanced kidneys are normal in size and without hydronephrosis. The kidneys enh ance symmetrically. Abdominal vasculature: The abdominal aorta is normal in course and caliber noting mild atheroscleroti c calcification. Bowel: There are scattered colonic diverticula without CT evidence of acute diverticulitis. No bowel obstruction is seen. The appendix is well-visualized and normal. Peritoneum: There is no intraperitoneal free air or abdominal ascites. There are small fat-containing umbilical and supraumbilical hernias. Lymphadenopathy: None. Pelvic viscera: There is median lobe hypertrophy of the prostate gland. The bladder wall is thickened and trabeculated indicating chronic outlet obstruction. There is evidence of bilateral inguinal sylvia iorrhaphy. Skeletal structures: No lytic or blastic lesions are seen. Mild lumbosacral spondylosis is observed. There is a left-sided pars defect at L5. IMPRESSION: 1. Findings are consistent with acute pancreatitis. 2. The gland enhances homogeneously. No organized peripancreatic fluid collection is identified. 3. Additional findings as above. ACT 112: Negative or not required by law. Electronically signed by: Marvel Rizzo M.D. 01/17/2020 8:06 AM
--- NOTE | 2020-01-17 09:10 | Hospitalist Progress Note ---
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 Bowel rest, LRS IVF, plan to advance to clear liquid diet Leukocytosis likely secondary to pancreatitis GI consult RE recurrent pancreatitis For outpatient work-up, patient is scheduled in January for EUS Hypothyroidism, euthyroid as of recent outpatient TSH last month DVT prophylaxis Lovenox subcu Full code Admission and Anticipated Discharge Date Admission Date: January 16, 2020 Subjective Patient is currently lying in bed, in no acute distress. Says that his abdominal pain is now much better controlled. Denies any nausea or vomiting. He is awaiting evaluation by GI. Says he has been been having abdominal pain for past 4 days, tried clear liquid diet at home, however he has been getting worse. He otherwise denies any fevers chills, chest pain, shortness of breath, headache, dizziness or lightheadedness. Review of Systems Review of Systems: All systems reviewed & are unremarkable except as noted in HPI & below Constitutional: no fever and no chills Respiratory: no cough and no dyspnea Cardiovascular: no chest pain and no palpitations Gastrointestinal: + abdominal pain (Much improved); no nausea, no vomiting and no blood in stools Physical Exam Physical Exam: GENERAL: Middle-age male in no acute distress, lying in bed, conversing easily HEENT: Cephalic, atraumatic, nevus right jehovah's witness, pink palpebral conjunctivae, EOMI, no ptosis NECK : Supple, no tenderness CHEST : CTA no wheezing, rhonchi or crackles, no tenderness HEART : RRR, no obvious murmurs ABDOMEN: mild distention, minimal epigastric tenderness to palpation, positive bowel sounds EXTREMITIES : No LE swelling/tenderness, moves all 4 extremities spontaneously and without difficulty SKIN: Normal color, warm NEUROLOGIC : Alert and oriented x3, answering questions appropriately, no facial asymmetry, speech fluent, moves all 4 extremities spontaneously and without difficulty Results & Data Results & Data ([facility]) Vital Signs (Past 12 Hours) Vital Signs Temp Pulse Pulse Resp BP BP Pulse Ox 01/17/20 07:34 36.9 C 70 16 111/66 93 01/17/20 01:11 37.4 C 90 16 144/93 H 97 01/16/20 23:16 92 H 19 127/87 97 01/16/20 21:36 93 H 17 148/103 H 97 Laboratory Results 01/17/20 01/17/20 01/16/20 Range/Units 05:30 05:30 18:03 WBC 16.00 H (4.8-10.8) K/uL RBC 4.22 L (4.7-6.1) M/uL Hgb 13.0 L (14.0-18.0) g/dL Hct 39.0 L (42-52) % MCV 92.4 (80-100) fL MCH 30.8 (25-34) pg MCHC 33.3 (32-36) g/dL RDW Std Deviation 44.6 (36.4-46.3) fL RDW Coeff of Rina 13.1 (11.5-14.5) % Plt Count 257 (130-400) K/uL MPV 9.9 (7.4-10.4) fL Immature Gran % (Auto) 0.3 % Neut % (Auto) 65.7 % Lymph % (Auto) 16.6 % [place] % (Auto) 14.4 % Eos % (Auto) 2.9 % Baso % (Auto) 0.1 % Neut # (Auto) 10.50 H (1.4-6.5) K/uL Lymph # (Auto) 2.66 (1.2-3.4) K/uL [place] # (Auto) 2.31 H (0.11-0.59) K/uL Eos # (Auto) 0.46 (0-0.5) K/uL Baso # (Auto) 0.02 (0-0.2) K/uL Immature Gran # (Auto) 0.05 H (0.00-0.02) K/uL Sodium 138 (136-145) mmol/L Potassium 3.7 (3.5-5.1) mmol/L Chloride 109 H (98-107) mmol/L Carbon Dioxide 23 (21-32) mmol/L Anion Gap 6.0 (3-11) BUN 9 (7-18) mg/dl Creatinine 0.69 (0.6-1.4) mg/dl Est Cr Clr Drug Dosing 133.1 ml/min Est GFR ( Amer) 122.1 Est GFR (Non-Af Amer) 105.4 BUN/Creatinine Ratio 13.0 (10-20) Glucose 79 (70-99) mg/dl Calcium 8.4 L (8.5-10.1) mg/dl Magnesium (1.8-2.4) mg/dl Total Bilirubin 0.7 (0.2-1) mg/dl AST 15 (15-37) U/L ALT 19 (12-78) U/L Alkaline Phosphatase 65 (45-117) U/L Total Protein 6.9 (6.4-8.2) gm/dl Albumin 2.9 L (3.4-5.0) gm/dl Globulin 4.0 (2.5-4.0) gm/dl Albumin/Globulin Ratio 0.7 L (0.9-2) Lipase (73-393) U/L Procalcitonin 0.10 (0-0.5) ng/ml Urine Color Urine Appearance (Clear) Urine pH (4.5-7.5) Ur Specific [place] (1.000-1.030) Urine Protein (Negative) Urine Glucose (UA) (Negative) Urine Ketones (Negative) Urine Blood (Negative) Urine Nitrite (Negative) Urine Bilirubin (Negative) Urine Urobilinogen (Negative) Ur Leukocyte Esterase (Negative) Urine RBC (0-4) /hpf Urine WBC (0-5) /hpf Ur Epithelial Cells (0-5) /lpf Urine Bacteria (Negative) 01/16/20 01/16/20 01/16/20 Range/Units 18:03 18:03 18:00 WBC 16.36 H (4.8-10.8) K/uL RBC 4.70 (4.7-6.1) M/uL Hgb 14.7 (14.0-18.0) g/dL Hct 43.2 (42-52) % MCV 91.9 (80-100) fL MCH 31.3 (25-34) pg MCHC 34.0 (32-36) g/dL RDW Std Deviation 43.6 (36.4-46.3) fL RDW Coeff of Rina 12.9 (11.5-14.5) % Plt Count 275 (130-400) K/uL MPV 9.6 (7.4-10.4) fL Immature Gran % (Auto) 0.4 % Neut % (Auto) 68.0 % Lymph % (Auto) 14.4 % [place] % (Auto) 13.9 % Eos % (Auto) 3.1 % Baso % (Auto) 0.2 % Neut # (Auto) 11.13 H (1.4-6.5) K/uL Lymph # (Auto) 2.36 (1.2-3.4) K/uL [place] # (Auto) 2.28 H (0.11-0.59) K/uL Eos # (Auto) 0.50 (0-0.5) K/uL Baso # (Auto) 0.03 (0-0.2) K/uL Immature Gran # (Auto) 0.06 H (0.00-0.02) K/uL Sodium 139 (136-145) mmol/L Potassium 3.8 (3.5-5.1) mmol/L Chloride 107 (98-107) mmol/L Carbon Dioxide 27 (21-32) mmol/L Anion Gap 5.0 (3-11) BUN 13 (7-18) mg/dl Creatinine 0.98 (0.6-1.4) mg/dl Est Cr Clr Drug Dosing 93.6 ml/min Est GFR ( Amer) 98.8 Est GFR (Non-Af Amer) 85.2 BUN/Creatinine Ratio 13.6 (10-20) Glucose 92 (70-99) mg/dl Calcium 8.9 (8.5-10.1) mg/dl Magnesium 1.9 (1.8-2.4) mg/dl Total Bilirubin 0.7 (0.2-1) mg/dl AST 29 (15-37) U/L ALT 23 (12-78) U/L Alkaline Phosphatase 71 (45-117) U/L Total Protein 7.7 (6.4-8.2) gm/dl Albumin 3.4 (3.4-5.0) gm/dl Globulin 4.3 H (2.5-4.0) gm/dl Albumin/Globulin Ratio 0.8 L (0.9-2) Lipase 255 (73-393) U/L Procalcitonin (0-0.5) ng/ml Urine Color Yellow Urine Appearance Clear (Clear) Urine pH 7.0 (4.5-7.5) Ur Specific [place] 1.015 (1.000-1.030) Urine Protein Negative (Negative) Urine Glucose (UA) Negative (Negative) Urine Ketones 1+ H (Negative) Urine Blood 2+ H (Negative) Urine Nitrite Negative (Negative) Urine Bilirubin Negative (Negative) Urine Urobilinogen Positive H (Negative) Ur Leukocyte Esterase Negative (Negative) Urine RBC >30 H (0-4) /hpf Urine WBC 0-5 (0-5) /hpf Ur Epithelial Cells 0-5 (0-5) /lpf Urine Bacteria Negative (Negative) Medications Administered Current Inpatient Medications Acetaminophen (Acetaminophen 325 Mg Tab) 650 mg PO Q6H PRN PRN Reason: Fever Stop: 02/15/20 21:26 Enoxaparin Sodium (Enoxaparin Inj 40 Mg/0.4 Ml Syr) 40 mg SQ QAM [facility] Stop: 02/16/20 08:59 Last Admin: 01/17/20 07:48 Dose: Not Given Documented by: Folic Acid (Folic Acid 1 Mg Tab) 1 mg PO DAILY [facility] Stop: 02/16/20 08:59 Last Admin: 01/17/20 07:49 Dose: 1 mg Documented by: Promethazine HCl 12.5 mg/ (Sodium Chloride) 50.5 mls @ 202 mls/hr IV Q6H PRN PRN Reason: Nausea And Vomiting Stop: 02/15/20 21:26 Lorazepam (Ativan) 0.25 mg in 0.5 mls @ 0.5 mls/min IV Q4H PRN PRN Reason: Anxiety Stop: 02/15/20 23:30 Lactated Ringer's (Lr) 1,000 mls @ 200 mls/hr IV .Q5H [facility] Stop: 02/16/20 01:44 Last Admin: 01/17/20 07:47 Dose: 200 mls/hr Documented by: Levothyroxine Sodium (Levothyroxine Sodium 100 Mcg Tablet) 100 mcg PO DAILYBB [facility] Stop: 02/16/20 06:29 Last Admin: 01/17/20 07:06 Dose: 100 mcg Documented by: Morphine Sulfate (Morphine Sulfate 4 Mg/Ml 1 Ml Carp\Vial) 4 mg IV Q4H PRN PRN Reason: Pain Stop: 01/30/20 21:26 Multivitamins/Minerals (Cerovite Adv Formula Tab) 1 tab PO DAILY [facility] Stop: 02/16/20 08:59 Last Admin: 01/17/20 07:49 Dose: 1 tab Documented by: Pantoprazole Sodium (Pantoprazole 40 Mg Tab) 40 mg PO DAILY [facility] Stop: 02/16/20 08:59 Last Admin: 01/17/20 07:49 Dose: 40 mg Documented by: Tramadol HCl (Tramadol Hcl 50 Mg Tablet) 25 - 50 mg PO Q4H PRN PRN Reason: Pain Stop: 02/15/20 21:26 Last Admin: 01/17/20 04:27 Dose: 50 mg Documented by:
--- NOTE | 2020-01-17 10:30 | Gastrointestinal Consultation ---
Date of Consultation January 17, 2020 Assessment & Plan (1) Recurrent pancreatitis: 59 year old male w/ ?recurrent pancreatitis admitted w/ abd pain. Labs unremarkable, CT w/ acute pancreatitis clincally feeling well Denies ETOH Remain ETOH, tobacco free Treat panc Can trial clear liquids today Then advance to low fat as tolerated Antiemetic PRN Analgesia PRN Keep EGD/EUS as scheduled No GI contraindication if he continues to do well with dietary advancement Supervising Physician Co-Signing Physician Notes I have seen and examined the patient with ANNA Soares whose note reflects our findings and plan. Still with abd discomfrot. Lipase and imaging without obvious pancreatitis. EGD/EUS as an outpatient. Conservative mgt. 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 Notes identical to past pancreatitis pain. Tried clear liquids at home but persistent. Admitted through the ED w/ Bowel rest, LRS IVF. This AM notes his symptoms resolved. No pain, nausea/vomiting. Feeling well. Allergies Allergy/AdvReac Type Severity Reaction Status Date / Time gluten AdvReac Gastrointestinal Verified 01/16/20 18:58 Upset Home Medications Home Medications Medication Instructions Recorded Confirmed Type cyanocobalamin (vitamin B-12) 1,000 mcg SUBLINGUAL DAILY 02/16/18 01/16/20 History folic acid 1 mg PO DAILY 02/16/18 01/16/20 History levothyroxine 100 mcg PO DAILY 02/16/18 01/16/20 History multivitamin with minerals 1 tab PO DAILY 02/16/18 01/16/20 History [Multiple Vitamin-Minerals] omeprazole 20 mg PO DAILY 02/16/18 01/16/20 History tadalafil 5 mg PO HS 02/16/18 01/16/20 History acetaminophen [Tylenol Extra 1,000 mg PO Q6H PRN 01/16/20 01/16/20 History Strength] calcium carbonate [Calcium 500] 500 mg PO Q OTHER DAY 01/16/20 01/16/20 History cholecalciferol (vitamin D3) 10 mcg PO Q OTHER DAY 01/16/20 01/16/20 History naproxen sodium [Aleve] 440 mg PO BID PRN 01/16/20 01/16/20 History Patient History Medical History (Updated 01/16/20 @ 22:32 by Rowdy Jung MD) Acute pancreatitis BPH (benign prostatic hyperplasia) Celiac disease Hypothyroidism Impotence of organic origin Osteoporosis Pancreatitis Surgical History History of cholecystectomy Family History Other Cancer Hypertension Social History Smoking Status: Never smoker Hx Alcohol Use: No Hx Substance Use: No Preferred Language: Montserratian Communication Ability: Effective Visual Impairment: No Limitations Hearing Ability: Normal Slitter Service And Setter Required: No Beliefs That Will Affect Care: None Current Living Situation: Significant Other Other Information That Helps Us Care for You: No Feels Safe at Home: Yes Safety Concerns: Feels Safe At This Time Review of Systems Constitutional: no fever, no chills and no fatigue Cardiovascular: no chest pain and no dyspnea Gastrointestinal: no abdominal pain and no blood in stools Physical Exam Constitutional: well developed and well nourished; no acute distress Neck: trachea midline Respiratory: normal respiratory effort Cardiovascular: Rate/Rhythm: regular rate and regular rhythm Gastrointestinal (Abdomen): normal bowel sounds, soft, nontender, no hepatosplenomegaly Skin: no rashes, warm and dry Results & Data ([facility]) Vital Signs (Past 12 Hours) Vital Signs Temp Pulse Pulse Resp BP BP Pulse Ox 01/17/20 07:34 36.9 C 70 16 111/66 93 01/17/20 01:11 37.4 C 90 16 144/93 H 97 01/16/20 23:16 92 H 19 127/87 97
--- NOTE | 2020-01-17 12:33 | Electrocardiogram Report ---
Test Reason : Blood Pressure : / mmHG Vent. Rate : 089 BPM Atrial Rate : 089 BPM P-R Int : 144 ms QRS Dur : 090 ms QT Int : 364 ms P-R-T Axes : 037 -14 030 degrees QTc Int : 442 ms Normal sinus rhythm Normal ECG When compared with ECG of 22-AUG-2017 02:37, Questionable change in QRS axis Confirmed by Giuseppe Corbin ([id number]) on 01/17/2020 12:33:16 PM Referred By: REFERRED SELF Confirmed By:Giuseppe Corbin
[2020-01-18] MEDS: LEVOTHYROXINE SODIUM 100 MCG TABLET PO SCH (05:52)
--- NOTE | 2020-01-18 07:37 | Hospitalist Progress Note ---
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 Bowel rest, LRS IVF, plan to advance to clear liquid diet Patient not tolerates low-fat diet Leukocytosis likely secondary to pancreatitis, now decreased, almost normalized GI consult RE recurrent pancreatitis, patient safe for discharge For outpatient work-up, patient is scheduled in January for EGD/EUS Hypothyroidism, euthyroid as of recent outpatient TSH last month DVT prophylaxis Lovenox subcu Full code Admission and Anticipated Discharge Date Admission Date: January 16, 2020 Subjective Patient is currently lying in bed, in no acute distress. Says that his abdominal pain has resolved. Denies any nausea or vomiting. Tolerated low-fat diet, inquiring about going home. Plan to follow-up with gastroenterology, already has scheduled EGD/EUS study. He otherwise denies any fevers chills, chest pain, shortness of breath, headache, dizziness or lightheadedness. Review of Systems Review of Systems: All systems reviewed & are unremarkable except as noted in HPI & below Constitutional: no fever and no chills Respiratory: no cough and no dyspnea Cardiovascular: no chest pain and no palpitations Gastrointestinal: no abdominal pain, no nausea, no vomiting and no blood in stools Physical Exam Physical Exam: GENERAL: Middle-age male in no acute distress, lying in bed, conversing easily HEENT: Normocephalic, atraumatic, nevus right orthodox, pink palpebral conjunctivae, EOMI, no ptosis NECK : Supple, no tenderness CHEST : CTA no wheezing, rhonchi or crackles, no tenderness HEART : RRR, no obvious murmurs ABDOMEN: mild distention, no epigastric tenderness to palpation, positive bowel sounds EXTREMITIES : No LE swelling/tenderness, moves all 4 extremities spontaneously and without difficulty SKIN: Normal color, warm NEUROLOGIC : Alert and oriented x3, answering questions appropriately, no facial asymmetry, speech fluent, moves all 4 extremities spontaneously and without difficulty Results & Data Results & Data ([facility]) Vital Signs (Past 12 Hours) Vital Signs Temp Pulse Resp BP Pulse Ox 01/17/20 23:22 36.8 C 74 16 130/84 96 Laboratory Results 01/18/20 01/18/20 Range/Units 07:26 07:26 WBC 11.82 H (4.8-10.8) K/uL RBC 4.24 L (4.7-6.1) M/uL Hgb 13.2 L (14.0-18.0) g/dL Hct 39.2 L (42-52) % MCV 92.5 (80-100) fL MCH 31.1 (25-34) pg MCHC 33.7 (32-36) g/dL RDW Std Deviation 43.4 (36.4-46.3) fL RDW Coeff of Rina 12.9 (11.5-14.5) % Plt Count 260 (130-400) K/uL MPV 9.6 (7.4-10.4) fL Sodium 139 (136-145) mmol/L Potassium 3.7 (3.5-5.1) mmol/L Chloride 107 (98-107) mmol/L Carbon Dioxide 24 (21-32) mmol/L Anion Gap 8.0 (3-11) BUN 7 (7-18) mg/dl Creatinine 0.77 (0.6-1.4) mg/dl Est Cr Clr Drug Dosing 119.3 ml/min Est GFR ( Amer) 116.8 Est GFR (Non-Af Amer) 100.7 BUN/Creatinine Ratio 9.6 L (10-20) Glucose 87 (70-99) mg/dl Calcium 9.0 (8.5-10.1) mg/dl Total Bilirubin 0.4 (0.2-1) mg/dl AST 17 (15-37) U/L ALT 18 (12-78) U/L Alkaline Phosphatase 69 (45-117) U/L Total Protein 7.1 (6.4-8.2) gm/dl Albumin 3.1 L (3.4-5.0) gm/dl Globulin 4.0 (2.5-4.0) gm/dl Albumin/Globulin Ratio 0.8 L (0.9-2) Lipase 252 (73-393) U/L Medications Administered Current Inpatient Medications Acetaminophen (Acetaminophen 325 Mg Tab) 650 mg PO Q6H PRN PRN Reason: Fever Stop: 02/15/20 21:26 Enoxaparin Sodium (Enoxaparin Inj 40 Mg/0.4 Ml Syr) 40 mg SQ QAM [facility] Stop: 02/16/20 08:59 Last Admin: 01/17/20 07:48 Dose: Not Given Documented by: Folic Acid (Folic Acid 1 Mg Tab) 1 mg PO DAILY [facility] Stop: 02/16/20 08:59 Last Admin: 01/17/20 07:49 Dose: 1 mg Documented by: Promethazine HCl 12.5 mg/ (Sodium Chloride) 50.5 mls @ 202 mls/hr IV Q6H PRN PRN Reason: Nausea And Vomiting Stop: 02/15/20 21:26 Lorazepam (Ativan) 0.25 mg in 0.5 mls @ 0.5 mls/min IV Q4H PRN PRN Reason: Anxiety Stop: 02/15/20 23:30 Potassium Chloride (K Bj / Wtr) 10 meq in 100 mls @ 100 mls/hr IV Q1H [facility] Stop: 01/18/20 09:40 Levothyroxine Sodium (Levothyroxine Sodium 100 Mcg Tablet) 100 mcg PO DAILYBB [facility] Stop: 02/16/20 06:29 Last Admin: 01/18/20 05:52 Dose: 100 mcg Documented by: Morphine Sulfate (Morphine Sulfate 4 Mg/Ml 1 Ml Carp\Vial) 4 mg IV Q4H PRN PRN Reason: Pain Stop: 01/30/20 21:26 Multivitamins/Minerals (Cerovite Adv Formula Tab) 1 tab PO DAILY [facility] Stop: 02/16/20 08:59 Last Admin: 01/17/20 07:49 Dose: 1 tab Documented by: Pantoprazole Sodium (Pantoprazole 40 Mg Tab) 40 mg PO DAILY [facility] Stop: 02/16/20 08:59 Last Admin: 01/17/20 07:49 Dose: 40 mg Documented by: Tramadol HCl (Tramadol Hcl 50 Mg Tablet) 25 - 50 mg PO Q4H PRN PRN Reason: Pain Stop: 02/15/20 21:26 Last Admin: 01/17/20 04:27 Dose: 50 mg Documented by:
[2020-01-18 07:42] LABS: Hematocrit (blood only) 39.2 % (42-52); Hemoglobin 13.2 g/dL (14.0-18.0); Mean Corpuscular Hemoglobin 31.1 pg (25-34); Mean Corpuscular Hgb Conc 33.7 g/dL (32-36); Mean Corpuscular Volume 92.5 fL (80-100); Mean Platelet Volume 9.6 fL (7.4-10.4); Platelet Count 260 K/uL (130-400); RDW Coefficient of Variation 12.9 % (11.5-14.5); RDW Standard Deviation 43.4 fL (36.4-46.3); Red Blood Count 4.24 M/uL (4.7-6.1); White Blood Count 11.82 K/uL (4.8-10.8)
[2020-01-18 08:00] LABS: Albumin Level 3.1 gm/dl (3.4-5.0); BUN Creatinine Ratio 9.6 (10-20); Creatinine Clr Calc Pharmacy 119.3 ml/min; Est GFR (African American) 116.8; Est GFR (Non-African American) 100.7; Potassium 3.7 mmol/L (3.5-5.1)
[2020-01-18 08:03] LABS: Albumin Globulin Ratio 0.8 (0.9-2); Bilirubin,Total 0.4 mg/dl (0.2-1); Total Protein 7.1 gm/dl (6.4-8.2)
[2020-01-18 08:28] VITALS: BP 123/80; TEMP 98.1; O2SAT 97
[2020-01-18] MEDS: FOLIC ACID 1 MG TAB PO SCH (08:55)
[2020-01-18] MEDS: PANTOprazole 40 MG TAB PO SCH (08:55)
[2020-01-18] MEDS: CEROVITE ADV FORMULA TAB PO SCH (08:56)
[2020-01-18] MEDS: ENOXAPARIN INJ 40 MG/0.4 ML SYR SQ SCH (08:56)
[2020-01-18] MEDS: POTASSIUM CHLORIDE / WTR 10 MEQ/100 ML PLCT IV SCH ×2 (10:10→11:03)
[2020-01-18 13:55] VITALS: PULSE 74
--- NOTE | 2020-01-18 13:55 | Discharge Summary ---
Date of Service January 18, 2020 Admission HPI Per Admitting Provider History obtained from patient and records. Medical history significant for recurrent pancreatitis, celiac disease, IBS as per records, hypothyroidism. Last confinement last month for recurrent pancreatitis. Outpatient EUS recommended after 4 to 6 weeks. [place] [facility] [place] a week after confinement. Concern for autoimmune pancreatitis as per patient. Outpatient IgG subclass 4 noted to be elevated at 213.8. 3 days ago patient noted epigastric discomfort going to his back somewhat reminiscent of pancreatitis attack. Denies recent alcohol intake. May have had a heavy meal a day before discomfort. No fever, no chills. No chest pain, no S OB. Worsening discomfort despite trying to limit food intake at home. 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 Admission Exam Per Admitting Provider GENERAL: Comfortable, pleasant, no respiratory distress SKIN: Normal color, warm HEENT: Nevus right taoist, pink palpebral conjunctivae, no ptosis, dry buccal mucosa NECK : Supple, no tenderness CHEST : CTA, no tenderness HEART : RRR, no obvious murmurs ABDOMEN: Some distention, minimal epigastric tenderness EXTREMITIES : No LE swelling/tenderness, no other conspicuous deformities noted NEUROLOGIC : Coherent, no facial asymmetry, no other gross focality Principal Diagnosis Recurrent pancreatitis, concern for autoimmune pancreatitis Discharge Exam GENERAL: Middle-age male in no acute distress, lying in bed, conversing easily HEENT: Normocephalic, atraumatic, nevus right taoist, pink palpebral conjunctivae, EOMI, no ptosis NECK : Supple, no tenderness CHEST : CTA no wheezing, rhonchi or crackles, no tenderness HEART : RRR, no obvious murmurs ABDOMEN: mild distention, no epigastric tenderness to palpation, positive bowel sounds EXTREMITIES : No LE swelling/tenderness, moves all 4 extremities spontaneously and without difficulty SKIN: Normal color, warm NEUROLOGIC : Alert and oriented x3, answering questions appropriately, no facial asymmetry, speech fluent, moves all 4 extremities spontaneously and without difficulty Discharge Data Allergies Allergy/AdvReac Type Severity Reaction Status Date / Time gluten AdvReac Gastrointestinal Verified 01/16/20 18:58 Upset Consultations 01/16/20 20:33 ED Decision to Admit Stat 01/16/20 23:31 Consult Gastroenterology Routine Ordered Studies 01/16/20 18:07 US pancreas Stat IMPRESSION: 1. The pancreas is obscured by bowel gas. 2. Cholecystectomy. 3. No biliary ductal dilation. 01/16/20 21:25 CT abd pelvis IV con only Urgent IMPRESSION: 1. Findings are consistent with acute pancreatitis. 2. The gland enhances homogeneously. No organized peripancreatic fluid collection is identified. 3. Additional findings in detailed report. 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 Bowel rest, LRS IVF initially, then advanced to clear liquid diet, patient tolerated well Patient now tolerates low-fat diet without any difficulty Leukocytosis likely secondary to pancreatitis, now decreased (16K --> 11.8K), almost normalized GI consult RE recurrent pancreatitis, patient safe for discharge For outpatient work-up, patient is scheduled in January for EGD/EUS Total Time Total Time Spent Total Time Spent (In Minutes): 40 Total Time Includes: Examination of the Patient, Discharge Planning, Medication Reconciliation and Communication With Other Providers Discharge Plan Discharge Items Patient Disposition: Home - Self-Care Reason For Visit: RECURRENT PANCREATITIS Discharge Diagnosis: Recurrent pancreatitis, concern for autoimmune pancreatitis Activity: Per Instructions section Non-emergency contact: Primary Care Provider and Fan Installer Call non-emergency contact if: you have any medication questions and your symptoms worsen Follow-up/Referrals: Aram Muller MD [Primary Care Provider] - 01/24/20 11:20 am (Date & Time 01/24/2020 11:20 AM Provider Aram Muller MD Department Internal Medicine [facility] ) Diet: Gluten Free and Low Fat Addtl Attending Provider Instructions: Follow-up with your primary care provider as already scheduled. Also follow-up with gastroenterology, and have your scheduled EGD/EUS study done in January. Recommend low fat diet. As you know, you also need to follow a gluten-free diet. Pending Studies at Discharge: No Stand-Alone Forms: My [employer], Smoking Cessation Medications and DC Order Prescriptions: Continued acetaminophen [Tylenol Extra Strength] 500 mg Tablet 1,000 mg PO Q6H PRN (Reason: Fever Or Pain) RF: 0 calcium carbonate [Calcium 500] 500 mg calcium (1,250 mg) Tablet 500 mg PO Q OTHER DAY RF: 0 naproxen sodium [Aleve] 220 mg Tablet 440 mg PO BID PRN (Reason: Fever Or Pain) RF: 0 cholecalciferol (vitamin D3) 10 mcg (400 unit) Tablet 10 mcg PO Q OTHER DAY RF: 0 levothyroxine 100 mcg tablet 100 mcg PO DAILY RF: 0 omeprazole 20 mg capsule,delayed release(DR/EC) 20 mg PO DAILY RF: 0 folic acid 1 mg tablet 1 mg PO DAILY RF: 0 cyanocobalamin (vitamin B-12) 1,000 mcg Tablet, Sublingual 1,000 mcg SUBLINGUAL DAILY RF: 0 tadalafil 5 mg tablet 5 mg PO HS RF: 0 multivitamin with minerals [Multiple Vitamin-Minerals] Tablet 1 tab PO DAILY RF: 0 Discharge Orders: Discharge Order (Routine); Ordered 01/18/20 Ordered By: Shayan Bryan/Other Patient Handouts: Understanding Pancreatitis, ED Pancreatitis Admission Data Admit Date/Time: 01/16/20 22:26 Attending Provider: Shayan Traylor Admit Provider: Rowdy Jung Primary Care Provider: Aram Muller Other Providers: Rowdy Jung ; Skyler Ryan ; Dia Nixon ; Bruno Victor ; Kamryn Burnett ; Ryan Parkinson ; Miguel Angel Ambrose ; Gino Gallegos ; Nikole iLndquist ; Giuseppe Kearns ; Kalyan Yung ; Adina Larson ; Makayla Webb ; Tea Chavez ; Rosenda Larkin ; Jaimee Ventura
== END 2020-01-18 14:36 | disposition home or self-care (01) | DRG 440 ==
LOC: ED 17:45 → 3N 22:26
DX: N40.0 Benign prostatic hyperplasia without lower urinary tract symptoms; K58.9 Irritable bowel syndrome, unspecified; N52.9 Male erectile dysfunction, unspecified; M81.0 Age-related osteoporosis without current pathological fracture; K90.0 Celiac disease; E03.9 Hypothyroidism, unspecified; K86.1 Other chronic pancreatitis